=== PATIENT | male | born 1970 | race African-American/Black ===

== ENCOUNTER 2019-11-22 13:04 | Emergency (ER) | payer MEDICARE, MEDICAID, SELFPAY ==
[2019-11-22 13:25] VITALS: BP 93/58; PULSE 62; RESP 16; TEMP 36.3; BMI 35.7
--- NOTE | 2019-11-22 14:30 | CT_ITS ---
EXAMINATION: CT HEAD W/O IV CONTRAST CT CERVICAL SPINE W/O IV CONTRAST CLINICAL INFORMATION: History of fall. COMPARISON: None TECHNIQUE: Head - Contiguous axial imaging of the head was performed from the skull base to the vertex without the administration of intravenous contrast, and axial images are reconstructed at 2 mm and 5 mm slice thickness. Cervical spine - A volumetric, helical CT acquisition of the cervical spine was obtained without contrast; in addition to the standard set of axial images, multiplanar reformatted images were provided in the coronal and sagittal imaging planes. This CT examination was performed using dose optimization techniques as appropriate, variously including the following: *Automated exposure control *Adjustment of mA and/or kV according to patient size (this includes techniques or standardized protocols for targeted exams where dose is matched to indication/reason for exam; i.e. extremities or head) *Use of iterative reconstruction technique DLP: 1494 mGy-cm (total) FINDINGS: HEAD: The tip of a left frontal approach ventriculostomy catheter is located in the midline, near region between frontal horns of lateral ventricles. No hydrocephalus. Mild atrophy of cerebral hemispheres is associated with commensurate prominence of ventricles and sulci. There appears to be chronic gliosis/encephalomalacia from remote infarction in the right middle cerebral artery territory. This is associated with ex vacuo dilatation of the right lateral ventricle. Also, there is gliosis in the left frontal lobe along the tract of the ventriculostomy catheter. No acute findings. No intracranial hemorrhage, extra-axial fluid collection, focal mass effect or midline shift. The cerebellum and brainstem are unremarkable. The mastoid air cells and middle ear cavities are well aerated. Mucosal thickening of frontal, ethmoid, sphenoid and maxillary sinuses without air-fluid levels. Mucus retention cyst along the roof of the left maxillary sinus. The orbits and globes are unremarkable. The temporomandibular joints are intact. No scalp hematoma. CERVICAL SPINE: No acute abnormalities. The craniocervical junction is normal. The occipital condyles, dens and atlantodental articulation are intact. The vertebral body heights and alignment are maintained. No fractures in the anterior or posterior elements. No prevertebral soft tissue swelling. The disc spaces are well-preserved. The facet joints are unremarkable. No evidence of spinal canal or neural foraminal stenosis. 0.7 cm hypodense nodule is present in the left thyroid lobe. Lung apices are excluded from the [id number]-ci-jski. No fluid collection or hematoma along the visualized course of the ventriculostomy catheter. IMPRESSION: * No hemorrhage or other acute intracranial pathology. 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 Associated ex vacuo dilatation of the right lateral ventricle. * No evidence of complications involving the visualized portion of the ventriculoperitoneal shunt. * No fracture or malalignment in the cervical spine.
--- NOTE | 2019-11-22 15:20 | ED.FALL ---
HPI - Fall General Chief Complaint: Fall Stated Complaint: fall Mode of arrival: EMS Limitations: physical limitation ( Left-sided weakness due to stroke in the past) History of Present Illness HPI Narrative: Patient states his feet got tangled up on wheel chair and caused fall. . Patient denies any loss of consciousness. Patient presently denies any pain. Patient states he was sent from the correction due to him being on blood thinners to make sure there is no bleeding in the brain. as per EMS note patient was sitting on which air and his foot got tangled and he fell forward off the wheelchair hit his head. Fall was witnessed by nursing staff. Patient denies loss of conscisouness. patient denies headache, abdominal pain, chest pain, abdominal pain, or dizziness before falling. MD complaint: fall Related Data Allergies Allergy/AdvReac Type Severity Reaction Status Date / Time No Known Allergies Allergy Verified 11/22/19 14:30 Review of Systems Review of Systems: Patient denies any physical complaints Yes all other systems are reviewed and are negative Constitutional: Constitutional: Reports no additional constitutional complaints Eyes: Eyes: Reports no additional eye complaints ENT: Reports system reviewed and no additional complaints, except as documented Cardiovascular: Cardiovascular: Reports as per HPI, Reports no additional cardiovascular complaints, Denies Abdominal Cramping after Meds, Denies Abdominal Distension, Denies chest pain, Denies chest pain at rest, Denies chest pain with activity and Denies Epigastric Pain Respiratory: Respiratory: Reports no additional respiratory complaints Gastrointestinal: Gastrointestinal: Reports no additional gastrointestinal complaints Musculoskeletal: Musculoskeletal: Reports no additional musculoskeletal complaints Neurologic: Reports system reviewed and no additional complaints, except as documented Psychiatric: Psychiatric: Reports no additional psychiatric complaints [facility] Social History Social History Advance Directives: No Advance Directives Information Provided: Yes Physical Exam Vital Signs: Vital Signs: Vital Signs Temp Pulse Resp BP Pulse Ox 11/22/19 17:10 97.8 F 62 17 137/77 96 11/22/19 13:25 97.4 F 62 16 93/58 L Body Mass Index 35.7 Const: Other: patient has residual left-sided weakness from stroke. General: cooperative, healthy appearing, comfortable and no acute distress Orientation/consciousness: patient oriented x3 HENMT: Head: Yes normal to inspection and No No palpable skull fracture present Eyes: General: appearance normal, both eyes and all related structures Neck: Neck: Yes normal visual inspection, Yes full ROM, Yes no meningeal signs, No lymphadenopathy, No positive Brudzinski's sign, No positive Kernig's sign and No tender Chest: Chest palpation & inspection: normal inspection of the chest, normal palpation of entire chest wall, no crepitus, no masses and no tenderness Resp: Effort & Inspection: normal respiratory effort, no audible wheezes, no cough and no use of accessory muscles Auscultation: clear to auscultation bilaterally Cardio: Jugular venous distension: no JVD Heart sounds: S1 normal heart sound present and S2 normal heart sound present GI: Inspection: Yes normal to inspection, No abdominal wall ecchymosis, No Abdominal wall edema, No distended, No incision, No Abdominal panniculus present, No obesity and No scaphoid Palpation (GI): not firm, nontender, no guarding and not rigid : General: No CVA tenderness and Yes no CVA tenderness Back/Spine/Pelvis: Back: no CVA tenderness, No CVA tenderness, No erythema and No back tenderness Skin: Other: Negative For any ecchymosis, abrasions, hematomas, or lacerations. General skin exam: no rashes or lesions noted, no ecchymosis and no scars Neuro: Other: positive for residual left-sided weakness due to stroke that occurred many years ago General: patient oriented x3 and no meningeal signs Extrem: Other: negative for any ecchymosis or other signs of trauma. Positive for residue left-sided weakness due to stroke that occurred years ago. General: Yes normal to inspection Psych: Appearance: grossly normal and well kempt Mental Status: mental status grossly normal Course Course Course Narrative: patient denies pain to any part of his body. Negative for any external or internal rotation of lower extremities to indicate pelvis/hip fracture. Negative for any abdominal tenderness or ecchymosis to indicate abdominal bleed. Negative for any chest wall tenderness, ecchymosis, or abrasions to indicate rib fracture, pneumothorax, or hemothorax. Lungs sounds are clear. Due to patient being on blood thinners will be sent for head CT C-spine to rule out bleed Reevaluation(s) Reevaluation #1: patient presently not any distress Time: 15:30 Reevaluation #2: patient imaging negative for any brain bleed or neck fracture. Patient blood pressure improved. Patient is safe for discharge. Time: 17:14 MDM - Fall MDM Narrative Medical decision making narrative: no indication for labs. This was a witnessed fall by nursing staff. Imaging negative for any brain bleed or neck fracture. Discharge Plan Discharge Clinical Impression: Fall Qualifiers: Encounter type: initial encounter Qualified Code(s): W19.XXXA - Unspecified fall, initial encounter Patient Disposition: Elopement Instructions: Fall Prevention for Older Adults (ED) Additional Instructions: return to the ED immediately for any headache, dizziness, abdominal pain, nausea, vomiting, rectal bleeding, blood in urine, coughing up blood, neck pain, or any other concerning symptoms. Referrals: Prince Bo DO [Primary Care Provider] - 2 days ( Fall. Head & CT C-spine negative for any emergencies.) Print Language: Cam[place]onian
--- NOTE | 2019-11-22 16:12 | PC.NURSE ---
taken for ct
[2019-11-22 17:10] VITALS: BP 137/77; PULSE 62; RESP 17; TEMP 36.6; O2SAT 96
== END 2019-11-22 21:35 | disposition left against medical advice (07) ==
PROVIDERS: Emergency Provider Emergency Medicine; PCP Hospitalist
DX: Z71.1 Person with feared health complaint in whom no diagnosis is made (principal); Z91.81 History of falling; Z79.01 Long term (current) use of anticoagulants
CPT/HCPCS: 70450; 72125; 99284

== ENCOUNTER 2019-11-27 08:21 | Outpatient (REF) | payer MEDICARE, MEDICAID, SELFPAY ==
--- NOTE | 2019-11-27 08:00 | EEG_ITS ---
The waking background activity consists of a posterior 6 Hz theta with asymmetrical delta slowing over the right hemisphere. Photic stimulation is without activation. The background slowing is accentuated by drowsiness. Photic stimulation is without activation. No paroxysmal discharges seen. IMPRESSION: This is an abnormal EEG due to diffuse background slowing consistent with a diffuse encephalopathic process as well as asymmetrical slowing over the right hemisphere that may suggest an underlying structural abnormality. Clinical correlation suggested. MD JT Peterson/FAUSTINO / [id number]
== END 2019-11-27 08:22 | disposition home or self-care (01) ==
LOC: HO.NEURO 08:21
PROVIDERS: Visit Provider Psychiatry & Neurology Neurology
DX: G40.909 Epilepsy, unspecified, not intractable, without status epilepticus (principal)
CPT/HCPCS: 95816

== ENCOUNTER 2020-01-16 10:12 | Emergency (ER) | payer MEDICARE, MEDICAID, SELFPAY ==
[2020-01-16 10:16] VITALS: BP 123/47; BP 127/87; PULSE 55; PULSE 58; RESP 12; TEMP 36.8; O2SAT 98; O2SAT 99; BMI 29.0
--- NOTE | 2020-01-16 11:24 | ED.GENADULT ---
HPI - General Adult General Chief complaint: General Medical Stated complaint: LETHARGY AND FATIGUE PER SNF,NO COVID SX PER EMS Time Seen by Provider: 01/16/20 11:20 History of Present Illness HPI narrative: patient is a residential resident who was noted today to be less active than normal, he is normally verbal and eating and responds quickly to social interaction today he was very slow to interact did not eat his food and told residential staff that he felt fatigued and sleepy Interaction with the patient he says that he feels sleepy and I had to ask him twice but then he responded appropriately, he denies any pain he denies dizziness he denies headache he denies nausea vomiting fever diarrhea shortness of breath, no chest pain denies any falls or injuries Related Data Previous Rx's Medication Instructions Recorded doxycycline hyclate 100 mg PO BID 7 Days #14 cap 01/16/20 Allergies Allergy/AdvReac Type Severity Reaction Status Date / Time No Known Allergies Allergy Verified 11/22/19 14:30 Review of Systems Review of Systems: positive for feeling sleepy and tired Negative for injury negative for headache negative for vision changes negative for fever chills dizziness shortness of breath chest pain sweating abdomen pain nausea vomiting diarrhea, denies any urinary changes, no pain with urination denies any new skin rash, no cough no sore throat no runny nose PMFSH Past Medical History PMFSH Narrative: medical history is past history of intracerebral hemorrhage, hydrocephalus, diabetes type 2, he has a CSF drain, history of TIA and stroke with left-sided residual weakness, history of seizures, 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, hypertension Discussion with staff at the residential says he is verbal but not ambulatory he does not walk in the residential but is usually conversational and alert Medical History (Updated 01/16/20 @ 16:27 by CEE Davenport) Epilepsy Hemiparesis HTN (hypertension) Social History Social History Advance Directives: No Advance Directives Information Provided: No Physical Exam Vital Signs: Vital Signs: Last Vital Signs Temp 97.5 F 01/16/20 13:31 Pulse 85 01/16/20 13:31 Resp 16 01/16/20 13:31 BP 119/76 01/16/20 13:31 Pulse Ox 99 01/16/20 13:31 Body Mass Index 29.0 , patient is resting comfortably in bed with his eyes closed, he responds appropriately to verbal stimuli and answers questions He is normocephalic atraumatic, pupils equal round reactive to light and extraocular motions are intact The neck is supple and nontender with full range of motion no meningismus The pharynx is clear The chest is clear to auscultation with full equal symmetrical breath sounds Heart no murmur auscultated The abdomen is soft nontender Extremities there is no edema, there is no calf tenderness or swelling Neuro there is residual left sided weakness which patient says is his baseline since the stroke, cranial nerves intact as examined, he is interacting appropriately with good comprehension and his voice is normal skin no rash or wound Course Course Course Narrative: I called the residential for information about the patient's baseline and spoke to his nurse who said the baseline is some degree of confusion but normally cheerful interactive, eating and drinking normally and this morning the patient said he was very sleepy and seemed lethargic and did want to eat so they called for an ambulance for a medical evaluation The patient does take Coumadin carbamazepine and Keppra for his seizures so these levels were checked when I returned to the room after the patient had a nap he was normally responsive and interactive and not sleepy or lethargic and he was eating his food He denies any complaint at this time Labs EKG chest x-ray were reviewed as well as a head CT No acute findings except for x-ray which showed possible right-sided infiltrate Further discussion with the patient he said he has had a minor cough for 2 days which has not really bothered him but he did have a cough so he is treated with antibiotic for possible early pneumonia Medical Decision Making Lab Data Lab results reviewed: Yes I reviewed the patient's lab results. Result diagrams: 01/16/20 13:43 01/16/20 13:42 Labs: Lab Results 01/16/20 01/16/20 01/16/20 Range/Units 12:33 12:36 13:42 WBC (4.8-10.8) X10*3/uL RBC (4.60-5.80) X10*6/uL Hgb (14.0-18.0) g/dl Hct (42-52) % MCV (80-98) fL MCH (27.0-33.0) pg MCHC (31.0-36.0) g/dl RDW (11.0-16.0) % Plt Count (160-400) X10*3/uL MPV (9.4-12.4) fL Immature Gran % (Auto) (0.0-0.4) % Neut % (Auto) (45-73) % Lymph % (Auto) (20-40) % [place] % (Auto) (2-11) % Eos % (Auto) (0-4) % Baso % (Auto) (0-2) % Lymph # (Auto) (1.2-4.9) X10*3/uL [place] # (Auto) (0.1-1.2) X10*3/uL Eos # (Auto) (0.0-0.4) X10*3/uL Baso # (Auto) (0.0-0.2) X10*3/uL Abs Immat Gran (auto) (0.00-0.03) X10*3/uL Absolute Neuts (auto) (2.0-8.3) X10*3/uL Absolute Nucleated RBC (0.0-0.012) X10*3/uL Nucleated RBC % (auto) (0.0-0.2) /100WBC PT (10.8-13.0) SEC INR (0.9-1.1) Sodium 137 (135-145) mmol/L Potassium 4.8 (3.3-5.1) mmol/l Chloride 100 (96-108) mmol/L Carbon Dioxide 28 (22-29) mmol/L Anion Gap 14 (12-20) BUN 24 H (9-16) mg/dL Creatinine 1.00 (0.5-1.4) mg/dL Estim Creat Clear Calc 90.5 Estimated GFR > 60 POC Glucose 113 (60-115) mg/dL Random Glucose 98 (60-115) mg/dL Lactic Acid (0.5-2.0) mmol/L Calcium 9.1 (8.4-10.2) mg/dL Total Bilirubin 0.5 (0.0-1.0) mg/dL Direct Bilirubin < 0.2 (0.0-0.5) mg/dL AST 8 (5-37) U/L ALT 15 (0-40) U/L Alkaline Phosphatase 79 (39-117) U/L Troponin I High Sens (<3.5-35.0) ng/L Total Protein 8.0 (6.5-8.0) g/dL Albumin 4.3 (3.5-5.0) g/dL Urine Color Urine Appearance Urine pH (5.0-8.0) Ur Specific Distant (1.005-1.025) Urine Protein (NEG-TRACE) MG/DL Urine Glucose (UA) (NEG) MG/DL Urine Ketones (NEG) MG/DL Urine Blood (NEG) Urine Nitrite (NEG) Ur Leukocyte Esterase (NEG) Carbamazepine (5.0-12.0) mcg/mL Respiratory Panel Pulido See Note Adenovirus (Rapid PCR) Not Detected (Not Detect.) B.pert (TEM-PCR) Not Detected (Not Detect.) B.parapertussis DNA PCR Not Detected (Not Detect.) C. pneumoniae DNA (PCR) Not Detected (Not Detect.) Coronavirus OC43 (PCR) Not Detected (Not Detect.) Coronavirus HKU1 (PCR) Not Detected (Not Detect.) Coronavirus 229E (PCR) Not Detected (Not Detect.) Coronavirus NL63 (PCR) Not Detected (Not Detect.) Human Metapneumovir PCR Not Detected (Not Detect.) Influenza A (RT-PCR) Not Detected (Not Detect.) Influenza B (RT-PCR) Not Detected (Not Detect.) M. pneumoniae (PCR) Not Detected (Not Detect.) Parainfluenza 1 (PCR) Not Detected (Not Detect.) Parainfluenza 2 (PCR) Not Detected (Not Detect.) Parainfluenza 3 (PCR) Not Detected (Not Detect.) Parainfluenza 4 (PCR) Not Detected (Not Detect.) RSV (PCR) Not Detected (Not Detect.) Entero/Rhino (PCR) Not Detected (Not Detect.) SARS-CoV-2 RNA (RT-PCR) Not Detected (Not Detect.) 01/16/20 01/16/20 01/16/20 Range/Units 13:42 13:42 13:42 WBC (4.8-10.8) X10*3/uL RBC (4.60-5.80) X10*6/uL Hgb (14.0-18.0) g/dl Hct (42-52) % MCV (80-98) fL MCH (27.0-33.0) pg MCHC (31.0-36.0) g/dl RDW (11.0-16.0) % Plt Count (160-400) X10*3/uL MPV (9.4-12.4) fL Immature Gran % (Auto) (0.0-0.4) % Neut % (Auto) (45-73) % Lymph % (Auto) (20-40) % [place] % (Auto) (2-11) % Eos % (Auto) (0-4) % Baso % (Auto) (0-2) % Lymph # (Auto) (1.2-4.9) X10*3/uL [place] # (Auto) (0.1-1.2) X10*3/uL Eos # (Auto) (0.0-0.4) X10*3/uL Baso # (Auto) (0.0-0.2) X10*3/uL Abs Immat Gran (auto) (0.00-0.03) X10*3/uL Absolute Neuts (auto) (2.0-8.3) X10*3/uL Absolute Nucleated RBC (0.0-0.012) X10*3/uL Nucleated RBC % (auto) (0.0-0.2) /100WBC PT 21.9 H (10.8-13.0) SEC INR 1.8 H (0.9-1.1) Sodium (135-145) mmol/L Potassium (3.3-5.1) mmol/l Chloride (96-108) mmol/L Carbon Dioxide (22-29) mmol/L Anion Gap (12-20) BUN (9-16) mg/dL Creatinine (0.5-1.4) mg/dL Estim Creat Clear Calc Estimated GFR POC Glucose (60-115) mg/dL Random Glucose (60-115) mg/dL Lactic Acid 1.4 (0.5-2.0) mmol/L Calcium (8.4-10.2) mg/dL Total Bilirubin (0.0-1.0) mg/dL Direct Bilirubin (0.0-0.5) mg/dL AST (5-37) U/L ALT (0-40) U/L Alkaline Phosphatase (39-117) U/L Troponin I High Sens 3.6 (<3.5-35.0) ng/L Total Protein (6.5-8.0) g/dL Albumin (3.5-5.0) g/dL Urine Color Urine Appearance Urine pH (5.0-8.0) Ur Specific Distant (1.005-1.025) Urine Protein (NEG-TRACE) MG/DL Urine Glucose (UA) (NEG) MG/DL Urine Ketones (NEG) MG/DL Urine Blood (NEG) Urine Nitrite (NEG) Ur Leukocyte Esterase (NEG) Carbamazepine (5.0-12.0) mcg/mL Respiratory Panel Pulido Adenovirus (Rapid PCR) (Not Detect.) B.pert (TEM-PCR) (Not Detect.) B.parapertussis DNA PCR (Not Detect.) C. pneumoniae DNA (PCR) (Not Detect.) Coronavirus OC43 (PCR) (Not Detect.) Coronavirus HKU1 (PCR) (Not Detect.) Coronavirus 229E (PCR) (Not Detect.) Coronavirus NL63 (PCR) (Not Detect.) Human Metapneumovir PCR (Not Detect.) Influenza A (RT-PCR) (Not Detect.) Influenza B (RT-PCR) (Not Detect.) M. pneumoniae (PCR) (Not Detect.) Parainfluenza 1 (PCR) (Not Detect.) Parainfluenza 2 (PCR) (Not Detect.) Parainfluenza 3 (PCR) (Not Detect.) Parainfluenza 4 (PCR) (Not Detect.) RSV (PCR) (Not Detect.) Entero/Rhino (PCR) (Not Detect.) SARS-CoV-2 RNA (RT-PCR) (Not Detect.) 01/16/20 01/16/20 01/16/20 Range/Units 13:42 13:43 14:33 WBC 8.9 (4.8-10.8) X10*3/uL RBC 4.84 (4.60-5.80) X10*6/uL Hgb 14.6 (14.0-18.0) g/dl Hct 44.0 (42-52) % MCV 90.9 (80-98) fL MCH 30.2 (27.0-33.0) pg MCHC 33.2 (31.0-36.0) g/dl RDW 13.4 (11.0-16.0) % Plt Count 249 (160-400) X10*3/uL MPV 10.4 (9.4-12.4) fL Immature Gran % (Auto) 0.2 (0.0-0.4) % Neut % (Auto) 75.3 H (45-73) % Lymph % (Auto) 17.8 L (20-40) % [place] % (Auto) 4.6 (2-11) % Eos % (Auto) 1.5 (0-4) % Baso % (Auto) 0.6 (0-2) % Lymph # (Auto) 1.6 (1.2-4.9) X10*3/uL [place] # (Auto) 0.4 (0.1-1.2) X10*3/uL Eos # (Auto) 0.1 (0.0-0.4) X10*3/uL Baso # (Auto) 0.1 (0.0-0.2) X10*3/uL Abs Immat Gran (auto) 0.02 (0.00-0.03) X10*3/uL Absolute Neuts (auto) 6.7 (2.0-8.3) X10*3/uL Absolute Nucleated RBC 0.000 (0.0-0.012) X10*3/uL Nucleated RBC % (auto) 0.0 (0.0-0.2) /100WBC PT (10.8-13.0) SEC INR (0.9-1.1) Sodium (135-145) mmol/L Potassium (3.3-5.1) mmol/l Chloride (96-108) mmol/L Carbon Dioxide (22-29) mmol/L Anion Gap (12-20) BUN (9-16) mg/dL Creatinine (0.5-1.4) mg/dL Estim Creat Clear Calc Estimated GFR POC Glucose (60-115) mg/dL Random Glucose (60-115) mg/dL Lactic Acid (0.5-2.0) mmol/L Calcium (8.4-10.2) mg/dL Total Bilirubin (0.0-1.0) mg/dL Direct Bilirubin (0.0-0.5) mg/dL AST (5-37) U/L ALT (0-40) U/L Alkaline Phosphatase (39-117) U/L Troponin I High Sens (<3.5-35.0) ng/L Total Protein (6.5-8.0) g/dL Albumin (3.5-5.0) g/dL Urine Color YELLOW Urine Appearance CLEAR Urine pH 6.0 (5.0-8.0) Ur Specific Distant 1.020 (1.005-1.025) Urine Protein NEG (NEG-TRACE) MG/DL Urine Glucose (UA) NEG (NEG) MG/DL Urine Ketones NEG (NEG) MG/DL Urine Blood NEG (NEG) Urine Nitrite NEG (NEG) Ur Leukocyte Esterase NEG (NEG) Carbamazepine 4.4 L (5.0-12.0) mcg/mL Respiratory Panel Pulido Adenovirus (Rapid PCR) (Not Detect.) B.pert (TEM-PCR) (Not Detect.) B.parapertussis DNA PCR (Not Detect.) C. pneumoniae DNA (PCR) (Not Detect.) Coronavirus OC43 (PCR) (Not Detect.) Coronavirus HKU1 (PCR) (Not Detect.) Coronavirus 229E (PCR) (Not Detect.) Coronavirus NL63 (PCR) (Not Detect.) Human Metapneumovir PCR (Not Detect.) Influenza A (RT-PCR) (Not Detect.) Influenza B (RT-PCR) (Not Detect.) M. pneumoniae (PCR) (Not Detect.) Parainfluenza 1 (PCR) (Not Detect.) Parainfluenza 2 (PCR) (Not Detect.) Parainfluenza 3 (PCR) (Not Detect.) Parainfluenza 4 (PCR) (Not Detect.) RSV (PCR) (Not Detect.) Entero/Rhino (PCR) (Not Detect.) SARS-CoV-2 RNA (RT-PCR) (Not Detect.) Imaging Data Chest x-ray: Radiologist's impression: radiologist impression was possible early right sided infiltrate on one view chest x-ray CT scan - head: Radiologist's impression: [address] [address] [address] Scan Report Signed Patient: Flavio Caicedo#: [id number] : 1970Acct:[id number] Age/Sex: 49 / MADM Date: 01/16/20 Loc: HO.ED Attending Dr: Ordering Physician: LAILA CROSS Date of Service: 01/16/20 Procedure(s): CT head/brain wo con Accession Number(s): [id number] cc: LAILA CROSS~ EXAMINATION: CT HEAD WITHOUT CONTRAST CLINICAL INFORMATION: Altered mental status. COMPARISON: CT of the head done on 11/22/2019. TECHNIQUE: Contiguous axial imaging was performed from the skull base to vertex without intravenous administration of contrast. This CT examination was performed using dose optimization techniques as appropriate, variously including the following: *Automated exposure control *Adjustment of mA and/or kV according to patient size (this includes techniques or standardized protocols for targeted exams where dose is matched to indication/reason for exam; i.e. extremities or head) *Use of iterative reconstruction technique DLP: 753.54 mGy-cm FINDINGS: There is no evidence of acute intracranial hemorrhage or territorial infarction. No abnormal mass effect or midline shift is seen. Lopez to white matter differentiation is well preserved. No extra-axial fluid collections are identified. The degree of ventricular dilatation appears stable (right greater than left). Evidence of encephalomalacia is noted involving the right temporoparietal lobe with the bifrontal subcortical periventricular hypodensities, similar to prior study dated 11/22/2019. Note is also made of presence of a left-sided ventriculoperitoneal shunt tube, appear similar to prior study. The osseous structures and soft tissues are normal. The mastoid air cells and visualized portions of the paranasal sinuses are well aerated. CT/CT head/brain wo con IMPRESSION: No acute intracranial pathology. No significant change since prior study dated 11/22/2019. ECG Data Interpretation: EKG was normal sinus rhythm with a rate of 63 GA was normal 176 QRS duration was 92 normal, no acute ST changes no acute ischemia on EKG Discharge Plan Discharge Clinical Impression: Bronchitis Patient Disposition: Home, Self-Care Additional Instructions: your workup today had an x-ray which showed a possible early pneumonia, so we are treating with doxycycline antibiotic your oxygen level blood pressure and other vital signs were normal throughout visit and you remained comfortable, and communicating normally and alert throughout visit Your COVID test and other workup was negative You will be discharged and if any symptoms worsen, or any worse condition or concerns return to the ER Prescriptions: New doxycycline hyclate 100 mg capsule 100 mg PO BID 7 Days Qty: 14 RF: 0
--- NOTE | 2020-01-16 11:36 | XR_ITS ---
EXAMINATION: XR CHEST CLINICAL INFORMATION: Possible infection. COMPARISON: None TECHNIQUE: Frontal view of the chest was obtained. FINDINGS: Subtle focal airspace disease is noted at right lower lung base, may represent early infiltrate. The remainder of the lung licea are clear. The left-sided ventriculoperitoneal shunt tube catheter is partially visualized with the visualized part appear intact. The cardiac mediastinal silhouette is within normal limits. XR/XR chest 1V IMPRESSION: Subtle focal airspace disease is noted at right lung base, may represent early infiltrate.
--- NOTE | 2020-01-16 11:36 | CT_ITS ---
EXAMINATION: CT HEAD WITHOUT CONTRAST CLINICAL INFORMATION: Altered mental status. COMPARISON: CT of the head done on 11/22/2019. TECHNIQUE: Contiguous axial imaging was performed from the skull base to vertex without intravenous administration of contrast. This CT examination was performed using dose optimization techniques as appropriate, variously including the following: *Automated exposure control *Adjustment of mA and/or kV according to patient size (this includes techniques or standardized protocols for targeted exams where dose is matched to indication/reason for exam; i.e. extremities or head) *Use of iterative reconstruction technique DLP: 753.54 mGy-cm FINDINGS: There is no evidence of acute intracranial hemorrhage or territorial infarction. No abnormal mass effect or midline shift is seen. Lopez to white matter differentiation is well preserved. No extra-axial fluid collections are identified. The degree of ventricular dilatation appears stable (right greater than left). Evidence of encephalomalacia is noted involving the right temporoparietal lobe with the bifrontal subcortical periventricular hypodensities, similar to prior study dated 11/22/2019. Note is also made of presence of a left-sided ventriculoperitoneal shunt tube, appear similar to prior study. The osseous structures and soft tissues are normal. The mastoid air cells and visualized portions of the paranasal sinuses are well aerated. CT/CT head/brain wo con IMPRESSION: No acute intracranial pathology. No significant change since prior study dated 11/22/2019.
--- NOTE | 2020-01-16 11:36 | ECG_ITS ---
Test Reason : SOB Blood Pressure : / mmHG Vent. Rate : 063 BPM Atrial Rate : 063 BPM P-R Int : 176 ms QRS Dur : 092 ms QT Int : 434 ms P-R-T Axes : 017 040 046 degrees QTc Int : 444 ms Normal sinus rhythm Normal ECG No previous ECGs available Referred By: Flavio Babcock Electronically Signed By:CELESTE MCADAMS MD
[2020-01-16 12:00] VITALS: BP 129/85; PULSE 59; RESP 14; TEMP 36.4; O2SAT 98
[2020-01-16 12:37] LABS: Glucose, Whole Blood 113 mg/dL (60-115)
[2020-01-16 13:13] LABS: Adenovirus PCR Not Detected (Not Detect.); Bordetella parapertussis PCR Not Detected (Not Detect.); Bordetella pertussis PCR Not Detected (Not Detect.); Chlamydia pneumoniae PCR Not Detected (Not Detect.); Coronavirus 229E PCR Not Detected (Not Detect.); Coronavirus HKU1 PCR Not Detected (Not Detect.); Coronavirus NL63 PCR Not Detected (Not Detect.); Coronavirus OC43 PCR Not Detected (Not Detect.); Human metapneumovirus PCR Not Detected (Not Detect.); Influenza A PCR Not Detected (Not Detect.); Influenza B PCR Not Detected (Not Detect.); Mycoplasma pneumoniae PCR Not Detected (Not Detect.); Parainfluenza 1 PCR Not Detected (Not Detect.); Parainfluenza 2 PCR Not Detected (Not Detect.); Parainfluenza 3 PCR Not Detected (Not Detect.); Parainfluenza 4 PCR Not Detected (Not Detect.); RSV PCR Not Detected (Not Detect.); Rhino/Enterovirus PCR Not Detected (Not Detect.); SARS-CoV-2 PCR Not Detected (Not Detect.)
[2020-01-16 13:31] VITALS: BP 119/76; PULSE 85; RESP 16; TEMP 36.4; O2SAT 99
[2020-01-16 13:49] LABS: MANUAL DIFF FLAG NO
[2020-01-16 13:51] LABS: Basophils Absolute Auto 0.1 X10*3/uL (0.0-0.2); Basophils Percent Auto 0.6 % (0-2); Eosinophils Absolute Auto 0.1 X10*3/uL (0.0-0.4); Eosinophils Percent Auto 1.5 % (0-4); Hemoglobin 14.6 g/dl (14.0-18.0); Imm Gran Abs Auto 0.02 X10*3/uL (0.00-0.03); Imm Gran Pct Auto 0.2 % (0.0-0.4); Lymphocytes Absolute Auto 1.6 X10*3/uL (1.2-4.9); Lymphocytes Percent Auto 17.8 % (20-40); Mean Corpuscular HGB Conc 33.2 g/dl (31.0-36.0); Mean Corpuscular Hemoglobin 30.2 pg (27.0-33.0); Mean Corpuscular Volume 90.9 fL (80-98); Mean Platelet Volume 10.4 fL (9.4-12.4); Monocytes Absolute Auto 0.4 X10*3/uL (0.1-1.2); Monocytes Percent Auto 4.6 % (2-11); Neutrophils Absolute Auto 6.7 X10*3/uL (2.0-8.3); Neutrophils Percent Auto 75.3 % (45-73); Platelet Count 249 X10*3/uL (160-400); Red Blood Count 4.84 X10*6/uL (4.60-5.80); Red Cell Distribution Width 13.4 % (11.0-16.0); White Blood Count 8.9 X10*3/uL (4.8-10.8)
[2020-01-16 13:59] LABS: INTERNATIONAL NORM RATIO 1.8 (0.9-1.1); Prothrombin Time 21.9 SEC (10.8-13.0)
[2020-01-16 14:07] LABS: Lactic Acid 1.4 mmol/L (0.5-2.0)
[2020-01-16 14:12] LABS: Alanine Aminotransferase 15 U/L (0-40); Albumin Level 4.3 g/dL (3.5-5.0); Alkaline Phosphatase 79 U/L (39-117); Anion Gap 14 (12-20); Aspartate Amino Transferase 8 U/L (5-37); Bilirubin Direct < 0.2 mg/dL (0.0-0.5); Bilirubin Total 0.5 mg/dL (0.0-1.0); Blood Urea Nitrogen 24 mg/dL (9-16); Calcium 9.1 mg/dL (8.4-10.2); Carbon Dioxide 28 mmol/L (22-29); Chloride 100 mmol/L (96-108); Creatinine Clr Calc Pharmacy 90.5; Estimated Glomerular Filt Rate > 60; Glucose Random 98 mg/dL (60-115); Potassium 4.8 mmol/l (3.3-5.1); Sodium 137 mmol/L (135-145)
[2020-01-16 14:17] LABS: Troponin-I High Sensitivity 3.6 ng/L (<3.5-35.0)
[2020-01-16 14:38] LABS: Glucose Urine UA NEG (NEG); Leukocyte Esterase Urine NEG (NEG); Nitrite Urine NEG (NEG); Urine Blood NEG (NEG); Urine Ketones NEG (NEG); Urine Protein NEG (NEG-TRACE)
[2020-01-16 14:40] LABS: Appearance Urine CLEAR; Color Urine YELLOW
[2020-01-16 15:10] LABS: Carbamazepine Tegretol 4.4 mcg/mL (5.0-12.0)
--- NOTE | 2020-01-16 16:48 | PC.NURSE ---
report given to Todd [facility] at [facility]. aware of patient's discharge.
[2020-01-20 13:27] LABS: Levetiracetam Keppra 24.3 mcg/mL (12.0-46.0)
== END 2020-01-16 18:45 | disposition home or self-care (01) ==
PROVIDERS: Physician Assistant Medical; Emergency Provider Emergency Medicine Emergency Medical Services
DX: J40 Bronchitis, not specified as acute or chronic (principal); Z20.828 Contact with and (suspected) exposure to other viral communicable diseases; R41.82 Altered mental status, unspecified; I10 Essential (primary) hypertension
CPT/HCPCS: 36415; 70450; 71045; 80053; 80076; 80156; 80177; 81003; 82248; 82947; 83605; 84484; 85025; 85610; 87633; 93005; 99284

== ENCOUNTER 2020-05-10 07:49 | Outpatient (REF) | payer MEDICARE, MEDICAID, SELFPAY ==
--- NOTE | 2020-05-10 08:00 | EEG_ITS ---
The waking background activity consists of a diffuse moderate voltage 6 to 7 hertz theta, intermixed with low voltage fast frequencies anteriorly. Photic stimulation is without activation. Hyperventilation was omitted. No paroxysmal discharges seen. IMPRESSION: This EEG is considered abnormal due to diffuse background slowing consistent with a diffuse encephalopathic process. No epileptiform discharges seen. Clinical correlation is suggested. MD JT Peterson/FAUSTINO / [id number]
== END 2020-05-10 07:50 | disposition home or self-care (01) ==
LOC: HO.NEURO 07:49
PROVIDERS: Visit Provider Hospitalist
DX: G40.909 Epilepsy, unspecified, not intractable, without status epilepticus (principal)
CPT/HCPCS: 95816

== ENCOUNTER 2022-09-17 11:25 | Outpatient (REF) | payer MEDICARE, MEDICAID, SELFPAY ==
--- NOTE | ~2022-09-17 | XR_ITS ---
EXAMINATION: XR ABDOMEN COMPLETE CLINICAL INDICATION: Reason for Exam N/V AND CONSTIPATION FOR 1 DAY COMPARISON: Chest radiograph 01/16/2020 TECHNIQUE: AP view of the abdomen. FINDINGS: Lines or devices: IVC filter tip terminates at the level of L2. Partially imaged ventriculoperitoneal shunt catheter overlies the right mid abdomen. Nonobstructive bowel gas pattern. Mild colonic stool burden. Supine technique limits evaluation for extraluminal air although no secondary findings are appreciated. Calcifications overlying the right renal shadow measuring up to 1.1 cm which may reflect renal stones. XR/XR KUB IMPRESSION: 1. Nonobstructive bowel gas pattern. Mild colonic stool burden. 2. Calcifications overlying the right renal shadow measuring up to 1.1 cm which may reflect renal stones.
== END 2022-09-17 11:26 | disposition home or self-care (01) ==
LOC: HO.XRAY 11:25
PROVIDERS: PCP Hospitalist; Visit Provider Hospitalist
DX: Z13.89 Encounter for screening for other disorder (principal)
CPT/HCPCS: 74018

== ENCOUNTER 2022-09-20 09:40 | Inpatient (IN) | payer MEDICARE, MEDICAID, SELFPAY ==
[2022-09-20] VITALS (14 sets, daily range): BP systolic 102–151; BP diastolic 36–86; PULSE 73–91; RESP 14–20; TEMP 36.3–36.8; O2SAT 94–98; BMI 30.8
--- NOTE | ~2022-09-20 | CT_ITS ---
EXAMINATION: CT ABDOMEN AND PELVIS WITHOUT CONTRAST CLINICAL INFORMATION: Right lower quadrant abdominal pain COMPARISON: None available. TECHNIQUE: Multidetector volumetric imaging was performed from the superior aspect of the liver through the pubic symphysis. Sagittal and coronal reformatted images were obtained on the technologist's workstation. This CT examination was performed using dose optimization techniques as appropriate, variously including the following: *Automated exposure control *Adjustment of mA and/or kV according to patient size (this includes techniques or standardized protocols for targeted exams where dose is matched to indication/reason for exam; i.e. extremities or head) *Use of iterative reconstruction technique DLP: 692 mGy-cm FINDINGS: A ventriculoperitoneal shunt catheter extends into the left lower quadrant. There is no fluid collection. LUNG BASES: The visualized lung bases are unremarkable. LIVER, GALLBLADDER, AND BILIARY TREE: The liver is normal in size, shape, and attenuation. No focal hepatic lesion or biliary ductal dilatation is present. The gallbladder is unremarkable with no evidence of radiopaque gallstones, gallbladder wall thickening, or obvious pericholecystic inflammatory changes. PANCREAS: Unremarkable. SPLEEN: Unremarkable. ADRENAL GLANDS: Unremarkable. KIDNEYS AND URETERS: Mild to moderate right hydroureteronephrosis is present to the level of a 4 mm x 2 mm calculus in the right proximal ureter located approximately the L3 level. The distal right ureter is collapsed. Coarse calcifications are evident in the midpole of the right kidney. The largest measures 10 x 4 mm. There is also a punctate calculus in the lower pole of the right kidney. The right kidney has kidney is edematous and enlarged. The left kidney and ureter are unremarkable. BLADDER: There are several small calculi, each measuring 1-2 mm, layering dependently within the urinary bladder. GASTROINTESTINAL TRACT: The small and large bowel are unremarkable. The appendix is unremarkable. ABDOMINAL WALL: A fat-containing left inguinal hernia is present. LYMPH NODES: Normal. VASCULAR: A metallic filter is evident in the infrarenal inferior vena cava. PELVIC VISCERA: The prostate gland is mildly enlarged indenting the bladder base. OSSEOUS STRUCTURES: Unremarkable. CT/CT abdomen pelvis wo IV con IMPRESSION: 1. Mild to moderate right hydroureteronephrosis, with an edematous enlarged right kidney, with the obstruction extending to the level of a 4 x 2 millimeter calculus in the right proximal ureter. 2. Additional calculi within the right kidney, and several small calculi layering within the urinary bladder. Her graft 3. 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 Fleischner guidelines were followed.
--- NOTE | ~2022-09-20 | FL_ITS ---
PROCEDURE: Retrograde Urography INDICATION: Stent placement FLUOROSCOPY: Fluoroscopy Time: 7.1 seconds Dose/air kerma: 1.5 mGy Images saved: 3 TECHNIQUE: Multiple intraoperative fluoroscopic images were submitted during reported right stent placement Evaluation is limited secondary to fluoroscopic technique. FL/FL guidance in OR IMPRESSION: Fluoroscopy was provided by radiology for this procedure. Please refer to the operative report for further information.
[2022-09-20 10:55] LABS: MANUAL DIFF FLAG NO
[2022-09-20 10:59] LABS: Basophils Percent Auto 0.3 % (0-2); Eosinophils Absolute Auto 0.2 X10*3/uL (0.0-0.4); Eosinophils Percent Auto 1.3 % (0-4); Hematocrit 42.7 % (42.0-52.0); Hemoglobin 14.5 g/dl (14.0-18.0); Imm Gran Abs Auto 0.07 X10*3/uL (0.00-0.03); Imm Gran Pct Auto 0.5 % (0.0-0.4); Lymphocytes Absolute Auto 1.1 X10*3/uL (1.2-4.9); Lymphocytes Percent Auto 8.6 % (20-40); Mean Corpuscular Hemoglobin 30.2 pg (27.0-33.0); Mean Platelet Volume 10.4 fL (9.4-12.4); Monocytes Percent Auto 7.5 % (2-11); Neutrophils Absolute Auto 10.6 x10*3/uL (2.0-8.3); Neutrophils Percent Auto 81.8 % (45-73); Platelet Count 353 X10*3/uL (160-400); Red Cell Distribution Width 12.1 % (11.0-16.0)
--- NOTE | 2022-09-20 11:38 | ED.GENADULT ---
HPI - General Adult General Chief complaint: General Medical Stated complaint: R SIDED FLANK PAIN Time Seen by Provider: 09/20/22 11:07 Source: patient Mode of arrival: EMS History of Present Illness HPI narrative: 51-year-old male was brought in by EMS from [facility] facility for constipation for 5 days, right lower quadrant pain but denies any nausea or vomiting and is requiring additional evaluation for abnormal kidney results. Patient does report some difficulty with urination. Related Data Previous Rx's Medication Instructions Recorded doxycycline hyclate 100 mg capsule 100 mg PO BID 7 days #14 caps 01/16/20 Allergies Allergy/AdvReac Type Severity Reaction Status Date / Time No Known Allergies Allergy Verified 11/22/19 14:30 Review of Systems Review of Systems: Pertinent positives and negatives as stated in HPI [facility] Past Medical History Source: nursing notes reviewed Medical History Epilepsy Hemiparesis HTN (hypertension) Social History Social History Alcohol intake: never Smoked in Last 30 Days: No Use of substances other than those prescribed or required for medical reasons: No Advance Directives: No Advance Directives Information Provided: Yes Physical Exam ED Vital Signs: Vital Signs - 24 hr 09/20/22 10:13 09/20/22 14:00 09/20/22 15:01 Temperature 98.3 F 97.8 F 98.3 F Pulse Rate 74 74 74 Respiratory Rate 16 14 18 Blood Pressure 125/36 L 126/73 136/75 Pulse Oximetry 96 97 97 Oxygen Delivery Method Room Air Room Air Room Air 09/20/22 14:44 09/20/22 15:11 Temperature 98.2 F 97.9 F Pulse Rate 80 74 Respiratory Rate 18 16 Blood Pressure 151/86 H 123/63 Pulse Oximetry 97 97 Oxygen Delivery Method Room Air Room Air BMI result Body Mass Index 30.8 VITAL SIGNS: Reviewed. GENERAL: Well developed, well nourished, in no acute distress. HEAD: Normocephalic/atraumatic EYES: PERRLA, EOMI EARS: Ext canals without abnormality NOSE: Nares patent bilateral OROPHARYNX: no oral lesions noted, posterior pharynx clear NECK: Supple, no adenopathy LUNGS: Normal breath sounds. No adventitious sounds or accessory muscle use. SpO2<96> CARDIOVASCULAR: Regular rate and rhythm without noted murmurs ABDOMEN: Soft, patient with right lower quadrant pain, non-distended with bowel sounds. MUSCULOSKELETAL: No tenderness, deformities, or effusions noted on gross inspection. EXTREMITIES: No cyanosis, clubbing or edema. SKIN: Inspection of the skin reveals no rashes NEUROLOGIC: Alert and oriented x 3. Strength and sensation to light touch were grossly intact x 4. Medications Administered Discontinued Medications Generic Name Dose Route Start Last Admin Trade Name Freq PRN Reason Stop Dose Admin Sodium Chloride 1,000 mls @ 999 mls/hr 09/20/22 11:15 09/20/22 13:20 Ns IV 09/20/22 12:15 Infused .Q1H1M [place] Infusion Sodium Chloride 1,000 mls @ 999 mls/hr 09/20/22 11:45 09/20/22 14:30 Ns IV 09/20/22 12:45 Infused .Q1H1M [place] Infusion Ceftriaxone Sodium 1 gm/ 50 mls @ 100 mls/hr 09/20/22 12:09 09/20/22 14:55 Sodium Chloride IV 09/20/22 12:38 Infused ONCE ONE Infusion Levofloxacin 500 mg in 100 mls @ 100 mls/hr 09/20/22 14:17 09/20/22 15:09 Levaquin IV 09/20/22 15:16 100 mls/hr PREOP ONE Administration Ketorolac Tromethamine 15 mg 09/20/22 11:07 09/20/22 12:15 Ketorolac Tromethamine 30 Mg/Ml Vial IVPUSH 09/20/22 11:08 15 mg ONCE ONE Administration Medical Decision Making Medical Decision Making [facility] Narrative: 1139: 51-year-old male with history and clinical presentation, DDX: Renal colic, appendicitis, pyelonephritis, obstructive uropathy, UTI. I reviewed all investigations, hematologic indices demonstrate leukocytosis with left shift but no anemia or thrombocytopenia. Chemistry indices show a significant NAHOMY and evidence to suggest some mild dehydration although the sodium may be reflective of a pseudohyponatremia given mild hyperglycemia with non-anion gap metabolic acidosis. Patient had antibiotics ordered, CT scan demonstrates hydroureteronephrosis with proximal obstruction of 2 stones. Will also receive IV fluids. 1358/1406: I tiger texted Dr. Anderson for suspicion of patient needing immediate intervention given degree of NAHOMY. I then set out a call for him. 1408: Dr. Anderson will be placing the patient on at on for this afternoon and stent placement, reviewed lab work with him. 1444: I discussed case with inpatient hospitalist. Differential Diagnosis Differential Diagnoses: The differential diagnosis associated with the presentation includes Please see the discussion above Admission/Observation Consideration of admission/observation: Escalation of care including admission/observation considered Please see the discussion above Consult Healthcare Provider Management of the patient was discussed with: Hospitalist and Surveillance System Monitor Please see the discussion above Lab Data MDM Lab Attestation statement: I reviewed the patient's lab results. Please see the discussion above 09/20/22 10:48 09/20/22 10:48 Labs: Lab Results 09/20/22 09/20/22 09/20/22 Range/Units 10:48 10:48 13:34 WBC 13.0 H (4.8-10.8) X10*3/uL RBC 4.80 (4.60-5.80) X10*6/uL Hgb 14.5 (14.0-18.0) g/dl Hct 42.7 (42.0-52.0) % MCV 89.0 (80.0-98.0) fL MCH 30.2 (27.0-33.0) pg MCHC 34.0 (31.0-36.0) g/dl RDW 12.1 (11.0-16.0) % Plt Count 353 (160-400) X10*3/uL MPV 10.4 (9.4-12.4) fL Immature Gran % (Auto) 0.5 H (0.0-0.4) % Neut % (Auto) 81.8 H (45-73) % Lymph % (Auto) 8.6 L (20-40) % [place] % (Auto) 7.5 (2-11) % Eos % (Auto) 1.3 (0-4) % Baso % (Auto) 0.3 (0-2) % Lymph # (Auto) 1.1 L (1.2-4.9) X10*3/uL [place] # (Auto) 1.0 (0.1-1.2) X10*3/uL Eos # (Auto) 0.2 (0.0-0.4) X10*3/uL Baso # (Auto) 0.0 (0.0-0.2) X10*3/uL Abs Immat Gran (auto) 0.07 H (0.00-0.03) X10*3/uL Absolute Neuts (auto) 10.6 H (2.0-8.3) x10*3/uL Absolute Nucleated RBC 0.000 (0.0-0.012) X10*3/uL Nucleated RBC % (auto) 0.0 (0.0-0.2) /100WBC Sodium 131 L (135-145) mmol/L Potassium 4.6 (3.3-5.1) mmol/L Chloride 97 (96-108) mmol/L Carbon Dioxide 19 L (22-29) mmol/L Anion Gap 20 (12-20) BUN 61 H (9-16) mg/dL Creatinine 4.00 H* (0.5-1.4) mg/dL Estim Creat Clear Calc 21.2 Estimated GFR 16 Random Glucose 269 H (60-115) mg/dL Lactic Acid 1.4 (0.5-2.0) mmol/L Calcium 9.5 (8.4-10.2) mg/dL Magnesium 2.2 (1.6-2.6) mg/dL Total Bilirubin 0.3 (0.0-1.0) mg/dL AST 7 (5-37) U/L ALT 9 (0-40) U/L Alkaline Phosphatase 63 (39-117) U/L Total Protein 8.6 H (6.5-8.0) g/dL Albumin 4.2 (3.5-5.0) g/dL Urine Color Urine Appearance Urine pH (5.0-9.0) Ur Specific [place] (1.005-1.025) Urine Protein (Neg-Trace) mg/dL Urine Glucose (UA) (Negative) mg/dL Urine Ketones (Negative) mg/dL Urine Blood (Negative) Urine Nitrite (Negative) Ur Leukocyte Esterase (Negative) 09/20/22 Range/Units 15:07 WBC (4.8-10.8) X10*3/uL RBC (4.60-5.80) X10*6/uL Hgb (14.0-18.0) g/dl Hct (42.0-52.0) % MCV (80.0-98.0) fL MCH (27.0-33.0) pg MCHC (31.0-36.0) g/dl RDW (11.0-16.0) % Plt Count (160-400) X10*3/uL MPV (9.4-12.4) fL Immature Gran % (Auto) (0.0-0.4) % Neut % (Auto) (45-73) % Lymph % (Auto) (20-40) % [place] % (Auto) (2-11) % Eos % (Auto) (0-4) % Baso % (Auto) (0-2) % Lymph # (Auto) (1.2-4.9) X10*3/uL [place] # (Auto) (0.1-1.2) X10*3/uL Eos # (Auto) (0.0-0.4) X10*3/uL Baso # (Auto) (0.0-0.2) X10*3/uL Abs Immat Gran (auto) (0.00-0.03) X10*3/uL Absolute Neuts (auto) (2.0-8.3) x10*3/uL Absolute Nucleated RBC (0.0-0.012) X10*3/uL Nucleated RBC % (auto) (0.0-0.2) /100WBC Sodium (135-145) mmol/L Potassium (3.3-5.1) mmol/L Chloride (96-108) mmol/L Carbon Dioxide (22-29) mmol/L Anion Gap (12-20) BUN (9-16) mg/dL Creatinine (0.5-1.4) mg/dL Estim Creat Clear Calc Estimated GFR Random Glucose (60-115) mg/dL Lactic Acid (0.5-2.0) mmol/L Calcium (8.4-10.2) mg/dL Magnesium (1.6-2.6) mg/dL Total Bilirubin (0.0-1.0) mg/dL AST (5-37) U/L ALT (0-40) U/L Alkaline Phosphatase (39-117) U/L Total Protein (6.5-8.0) g/dL Albumin (3.5-5.0) g/dL Urine Color Yellow Urine Appearance Clear Urine pH 5.5 (5.0-9.0) Ur Specific [place] 1.020 (1.005-1.025) Urine Protein 30 (1+) H (Neg-Trace) mg/dL Urine Glucose (UA) >=1000 H (Negative) mg/dL Urine Ketones Negative (Negative) mg/dL Urine Blood Negative (Negative) Urine Nitrite Negative (Negative) Ur Leukocyte Esterase Negative (Negative) Critical Care Time Critical Care Time Critical Care Time: Yes Total Critical Care Time: 30 Attestation: I personally attest to this time spent taking care of the patient. Discharge Plan Discharge Clinical Impression: Ureteric calculus, NAHOMY (acute kidney injury), Hydroureteronephrosis, Pyelonephritis Patient Disposition: Admitted As Inpatient
[2022-09-20 11:53] LABS: Alanine Aminotransferase 9 U/L (0-40); Albumin Level 4.2 g/dL (3.5-5.0); Alkaline Phosphatase 63 U/L (39-117); Anion Gap 20 (12-20); Aspartate Amino Transferase 7 U/L (5-37); Bilirubin Total 0.3 mg/dL (0.0-1.0); Blood Urea Nitrogen 61 mg/dL (9-16); Calcium 9.5 mg/dL (8.4-10.2); Carbon Dioxide 19 mmol/L (22-29); Chloride 97 mmol/L (96-108); Creatinine Clr Calc Pharmacy 21.2; Estimated Glomerular Filt Rate 16; Glucose Random 269 mg/dL (60-115); Magnesium 2.2 mg/dL (1.6-2.6); Potassium 4.6 mmol/L (3.3-5.1); Sodium 131 mmol/L (135-145); Total Protein 8.6 g/dL (6.5-8.0)
[2022-09-20] MEDS: 0.9 % Sodium Chloride 1,000 ML 999 ML IV ×3 (12:15→15:49)
[2022-09-20] MEDS: Ketorolac Tromethamine 30 MG/ML VIAL 15 MG IVPUSH (12:15)
[2022-09-20 13:51] LABS: Lactic Acid 1.4 mmol/L (0.5-2.0)
--- NOTE | 2022-09-20 14:19 | P.CNUR_ITS ---
History of Present Illness Consult details Consult date: 09/20/22 Narrative: CC: Proximal right ureteric stone with NAHOMY and elevated white count possible sepsis 51-year-old male Patient from [facility] with background of epilepsy Persistent discomfort right side Imaging performed in hospital - Mild to moderate right hydroureteronephrosis is present to the level of a 4 mm x 2 mm calculus in the right proximal ureter located approximately the L3 level Laboratory show NAHOMY with creatinine 4.0, calcium 9.5, WBC 13.0, concern for developing urosepsis Plan for cystoscopy, right retrograde, right stent placement Review of Systems Constitutional: Constitutional: Reports as per HPI and Reports no additional constitutional complaints Cardiovascular: Cardiovascular: Reports as per HPI and Reports no additional cardiovascular complaints Respiratory: Respiratory: Reports as per HPI and Reports no additional respiratory complaints Gastrointestinal: Gastrointestinal: Reports as per HPI and Reports no additional gastrointestinal complaints Genitourinary: Genitourinary: Reports as per HPI Musculoskeletal: Musculoskeletal: Reports no additional musculoskeletal complaints and Reports as per HPI Neurologic: Reports system reviewed and no additional complaints, except as documented and Reports as per HPI PMFSH Past Medical History Medical History Epilepsy Hemiparesis HTN (hypertension) Social History Social History Alcohol intake: never Smoked in Last 30 Days: No Use of substances other than those prescribed or required for medical reasons: No Advance Directives: No Advance Directives Information Provided: Yes Meds Allergies Allergy/AdvReac Type Severity Reaction Status Date / Time No Known Allergies Allergy Verified 11/22/19 14:30 Physical Exam Vital Signs: Vital Signs: Last Vital Signs Temp 98.3 F 09/20/22 10:13 Pulse 74 09/20/22 10:13 Resp 16 09/20/22 10:13 BP 125/36 L 09/20/22 10:13 Pulse Ox 96 09/20/22 10:13 O2 Del Method Room Air 09/20/22 10:13 BMI result Body Mass Index 30.8 Const: General: cooperative, healthy appearing, comfortable and no acute distress Orientation/consciousness: patient oriented x3 HEENT: Face and sinus: Yes normal facial exam Mouth: moist mucous membranes Neck: Neck: Yes normal visual inspection, Yes full ROM and Yes trachea midline Chest: Chest palpation & inspection: normal inspection of the chest Resp: Effort & Inspection: normal respiratory effort, able to speak in complete sentences and no respiratory distress GI: Inspection: Yes normal to inspection Back/Spine/Pelvis: Cervical Spine: normal cervical lordosis Thoracic/Lumbar Spine: thoracic and lumbar spine normal to inspection Skin: General skin exam: no rashes or lesions noted Neuro: General: patient oriented x3, tone normal and moves all extremities Extrem: General: Yes normal to inspection and Yes capillary refill normal Results Labs 09/20/22 10:48 09/20/22 10:48 Labs: Abnormal lab results 09/20/22 09/20/22 Range/Units 10:48 10:48 WBC 13.0 H (4.8-10.8) X10*3/uL Immature Gran % (Auto) 0.5 H (0.0-0.4) % Neut % (Auto) 81.8 H (45-73) % Lymph % (Auto) 8.6 L (20-40) % Lymph # (Auto) 1.1 L (1.2-4.9) X10*3/uL Abs Immat Gran (auto) 0.07 H (0.00-0.03) X10*3/uL Absolute Neuts (auto) 10.6 H (2.0-8.3) x10*3/uL Sodium 131 L (135-145) mmol/L Carbon Dioxide 19 L (22-29) mmol/L BUN 61 H (9-16) mg/dL Creatinine 4.00 H* (0.5-1.4) mg/dL Random Glucose 269 H (60-115) mg/dL Total Protein 8.6 H (6.5-8.0) g/dL Short CBC 09/20/22 Range/Units 10:48 WBC 13.0 H (4.8-10.8) X10*3/uL Hgb 14.5 (14.0-18.0) g/dl Hct 42.7 (42.0-52.0) % Plt Count 353 (160-400) X10*3/uL BMP 09/20/22 10:48 Sodium 131 L Potassium 4.6 Chloride 97 Carbon Dioxide 19 L BUN 61 H Creatinine 4.00 H* Calcium 9.5 Liver Function 09/20/22 Range/Units 10:48 Total Bilirubin 0.3 (0.0-1.0) mg/dL AST 7 (5-37) U/L ALT 9 (0-40) U/L Alkaline Phosphatase 63 (39-117) U/L Albumin 4.2 (3.5-5.0) g/dL All other labs normal. Assessment and Plan (1) Ureteric calculus: Status: Acute (2) NAHOMY (acute kidney injury): Status: Acute Plan Risks, benefits and alternatives to therapy were discussed. These include but are not limited to infection, bleeding, damage to local organs and tissues, need for further interventions. Anesthetic risks regarding cardiac arrhythmia, blood clots, and potential mortality were discussed. The patient understands the typical recovery time and the outpatient nature of the procedure. After consideration of these risks the patient gives full informed consent and they wish to move ahead with the procedure. Cystoscopy, right retrograde, right stent placement Time Spent With Patient Time: Total time managing care of this patient today ____ minutes. Procedures Date of Service Date of Service: 09/20/22
[2022-09-20] MEDS: cefTRIAXone sodium 1 GM in 0.9 % Sodium Chloride 50 ML IV (14:20)
--- NOTE | 2022-09-20 14:48 | MHC.EDTECH ---
@2348 Tech went into collect 2nd set of Blood culture. Patient was a slow drip. It was Drip by Drip to fill them to the line.
--- NOTE | 2022-09-20 14:55 | P.HPHOSP_ITS ---
History of Present Illness Date of Service: 09/20/22 Chief Complaint: loin pain A 51 years old male care one resident w [facility] of seizures, HTN who presents to the hospital for loin pain evaluation. The patient reports constipation and right sided loin pain for 5 days [employer]HOU[employer] SH[employer]PING [employer] with associated nausea and one episode of vom iting. Brought to the hospital for evaluation. denies any fever, chills, SOB, chest pain or urinary symptoms. BMP showing NAHOMY as CT Scan showed obstructing stone in right kidney. Admitted for urological cystoscopy and treatment of NAHOMY. Review of Systems Review of Systems: No fever, chills or weakness No chest pain, palpitation No shortness of breath or coughing No abdominal pain, nausea or vomiting Right loin pain No urinary symptoms No any rash or wounds PMFSH Medical History Epilepsy Hemiparesis HTN (hypertension) Social History Household Members: Other Housing: Other Housing Other:: [facility] Alcohol intake: never Patient Tobacco Use Status: Never used Tobacco Smoked in Last 30 Days: No Use of substances other than those prescribed or required for medical reasons: No Currently Displaying Signs/Symptoms of Drug Intoxication Withdrawal: No Have you been hit, kicked, punched, or otherwise hurt by someone within the past year? If so, by whom?: No Do you feel safe in your current relationship?: No Current Relationship Is there a partner from a previous relationship who is making you feel unsafe now?: No Are you made to feel afraid or neglected: No Advance Directives: No Advance Directives Information Provided: Yes Do you have thoughts of harming others: None Do you have a plan to hurt others: No Plan Recently lost weight without trying: No How much weight loss: Not applicable Eating poorly because of decreased appetite: No Nutrition screen score: 0 Nutrition Risks: No Nutritional Risk Meds Allergies Allergy/AdvReac Type Severity Reaction Status Date / Time Penicillins Allergy Unknown Verified 09/20/22 19:37 Active Medications: Current Medications Levofloxacin (Levaquin) 500 mg in 100 mls @ 100 mls/hr IV PREOP ONE Stop: 09/20/22 15:16 Sodium Chloride (Ns) 1,000 mls @ 999 mls/hr IV .Q1H1M [place] Stop: 09/20/22 15:45 Home Medications Medication Instructions Recorded Confirmed Last Taken Type acetaminophen 325 mg tablet 650 mg PO Q8H PRN fever/pain 09/20/22 09/20/22 Unknown History apixaban 5 mg tablet 5 mg PO BID 09/20/22 09/20/22 Unknown History atorvastatin 20 mg tablet 20 mg PO BEDTIME 09/20/22 09/20/22 Unknown History carbamazepine 100 mg 100 mg PO BID 09/20/22 09/20/22 Unknown History capsule,extended release [id number] carbamazepine 400 mg 400 mg PO BID 09/20/22 09/20/22 Unknown History tablet,extended release,12 hr dapagliflozin propanediol 10 mg 10 mg PO DAILY 09/20/22 09/20/22 Unknown History tablet diclofenac sodium 1 % topical gel 4 g topical Q6H pain 09/20/22 09/20/22 Unknown History docusate sodium 100 mg tablet 100 mg PO BID 09/20/22 09/20/22 Unknown History gemfibrozil 600 mg tablet 600 mg PO BID 09/20/22 09/20/22 Unknown History guaifenesin 100 mg/5 mL oral liquid 200 mg PO Q4H PRN Cough 09/20/22 09/20/22 Unknown History lamotrigine 25 mg tablet 50 mg PO BID 09/20/22 09/20/22 Unknown History levetiracetam 1,000 mg tablet 1,000 mg PO BID 09/20/22 09/20/22 Unknown History (Tomasa) lidocaine 5 % topical patch 1 patch topical DAILY PRN Back Pain 09/20/22 09/20/22 Unknown History lisinopril 20 mg tablet 20 mg PO DAILY 09/20/22 09/20/22 Unknown History metformin 1,000 mg tablet 1,000 mg PO BID 09/20/22 09/20/22 Unknown History metoprolol succinate 25 mg 25 mg PO BID 09/20/22 09/20/22 Unknown History tablet,extended release 24 hr sennosides 8.6 mg tablet (senna) 8.6 mg PO DAILY PRN Constipation 09/20/2209/20 Unknown History Physical Exam Vital Signs and Narrative: Vital Signs: Last Vital Signs Temp 97.8 F 09/20/22 14:00 Pulse 74 09/20/22 14:00 Resp 14 09/20/22 14:00 BP 126/73 09/20/22 14:00 Pulse Ox 97 09/20/22 14:00 O2 Del Method Room Air 09/20/22 14:00 BMI result Body Mass Index 30.8 Const: Other: Constitutional : Awake, interactive, not in distress Neck : Normal inspection, Supple Cardiovascular : RRR, no JVP, no lower extremity edema Respiratory : good bilateral air entry, no crackles, wheezes or rhonchi Gastrointestinal: soft, lax, Normal bowel sounds, Non tender Skin : Warm, Dry Neurological : Alert & oriented to self and place, No gross focal deficit Results Labs 09/20/22 10:48 09/20/22 10:48 Labs: Laboratory Results - last 24 hr 09/20/22 09/20/22 09/20/22 10:48 10:48 13:34 MCV 89.0 MCH 30.2 MCHC 34.0 RDW 12.1 Plt Count 353 MPV 10.4 Immature Gran % (Auto) 0.5 H Neut % (Auto) 81.8 H Lymph % (Auto) 8.6 L [place] % (Auto) 7.5 Eos % (Auto) 1.3 Baso % (Auto) 0.3 Lymph # (Auto) 1.1 L [place] # (Auto) 1.0 Eos # (Auto) 0.2 Baso # (Auto) 0.0 Abs Immat Gran (auto) 0.07 H Absolute Neuts (auto) 10.6 H Absolute Nucleated RBC 0.000 Nucleated RBC % (auto) 0.0 Anion Gap 20 Estim Creat Clear Calc 21.2 Estimated GFR 16 Random Glucose 269 H Lactic Acid 1.4 Calcium 9.5 Magnesium 2.2 Total Bilirubin 0.3 AST 7 ALT 9 Alkaline Phosphatase 63 Total Protein 8.6 H Albumin 4.2 Imaging Radiologist's Impressions: Impressions Abdomen/Pelvis CT 09/20/22 12:40 IMPRESSION: 1. Mild to moderate right hydroureteronephrosis, with an edematous enlarged right kidney, with the obstruction extending to the level of a 4 x 2 millimeter calculus in the right proximal ureter. 2. Additional calculi within the right kidney, and several small calculi layering within the urinary bladder. Her graft 3. Incidental findings include a MEDICAL OFFICE TECHNICIAN shunt, prostate enlargement, IVC filter, and fat-containing left inguinal hernia. Fleischner guidelines were followed. Assessment and Plan (1) Hydroureteronephrosis: Status: Acute (2) NAHOMY (acute kidney injury): Status: Acute (3) Pyelonephritis: Status: Acute (4) Ureteric calculus: Status: Acute Plan A 51 years old male care one resident w [facility] of seizures, HTN who presents to the hospital for loin pain evaluation. Acute kidney injury 2/2 obstructive uropathy Cr of 4 Urology to resolve the obstruction IVF monitor I\O follow BMP Acute hyponatremia 2/2 NAHOMY replace with IVF follow BMP Pyelonephritis 2/2 obstruction Treat with IV Ceftriaxone DVT PPx SCDs The patient will need 2 overnight hospital stay for urological procedure and acute kidney injury Time Spent With Patient Time: Total time managing care of this patient today ____ minutes. Quality Stroke Does the patient have a stroke diagnosis?: No VTE Prior VTE?: No VTE Risk Level:: Medical - moderate - high VTE Device Contraindication: N/A - Device Ordered VTE Drug Contraindication: Treatment Not Indicated
--- NOTE | 2022-09-20 15:04 | MHC.EDTECH ---
@ 1300 unable to draw 2nd set of cultures. Merrick has small veins, Asked another tech to try.
[2022-09-20] MEDS: levoFLOXacin/D5W 500 MG/100 ML PIGGYBACK 100 MG IV (15:09)
--- NOTE | 2022-09-20 15:10 | PC.NURSE ---
hosp at bedside, pt aware of plan of care for admission to hosp/surgery. pt was incontinent of xlg amt of yellow urine and pt was also straight cath for 50ml of yellow urine. aware..
[2022-09-20 15:18] LABS: Appearance Urine Clear; Color Urine Yellow; Glucose Urine UA >=1000 mg/dL (Negative); Leukocyte Esterase Urine Negative (Negative); Nitrite Urine Negative (Negative); PH 5.5 (5.0-9.0); UMIC TRIGGER UACC YES; Urine Blood Negative (Negative); Urine Ketones Negative (Negative); Urine Protein 30 (1+) mg/dL (Neg-Trace)
--- NOTE | 2022-09-20 15:25 | PC.NURSE ---
rn to report given to isela schaefer of [facility]. pt aware of plan of care for surgery.
--- NOTE | 2022-09-20 16:14 | PHA.MEDREC ---
Pharmacy Consult ? Medication Reconciliation Pharmacy has completed the medication reconciliation. Patient came from [facility] with medication list. Jenni Green, BarronD
[2022-09-20] MEDS: Morphine Sulfate 4 MG/ML CARTRIDGE 2 MG IVPUSH (16:57)
[2022-09-20 17:01] LABS: Bacteria Urine None Seen (None Seen); RBC Urine 0-2 /HPF (0-2); Squamous Epithelial Cell Urine 0-2 /HPF (0-2); WBC Urine 0-5 /HPF (0-5)
--- NOTE | 2022-09-20 18:04 | MHC.EDTECH ---
PATIENT WAS INCONTINENT OF URINE ,CARE GIVEN BEDDING CHANGE ,WARM BLANKET GIVEN ,PATIENT BELONGING LIST DONE ,PATIENT WATCHING TELEVISION .
--- NOTE | 2022-09-20 19:33 | PC.NURSE ---
RN assumed care at 1500. Patient medicated with PRN Morphine per APR, reports 30 min later pain went from 7 down to 5 on pain scale. Patient calm, pleasant, appropriate, maintained NPO status and was taken by PACU team.
--- NOTE | 2022-09-20 20:17 | MHC.SHP ---
Pre-Procedural Eval Section A Date of Service: 09/20/22 The patient is an INPATIENT: No Changes since office visit: No Cold of Flu in the past 2 weeks, No New Medical Problems, No Changes in Medication and No Patient answered all questions The History & Physical has been completed within 30 days and I have reviewed it.: Yes Section B Chief Complaint: R SIDED FLANK PAIN Allergies: Allergies Allergy/AdvReac Type Severity Reaction Status Date / Time Penicillins Allergy Unknown Verified 09/20/22 19:37 Plan Diagnosis/Plan: Unchanged ( Right retrograde, stent placement) I have reviewed the history and physical and performed a pertinent physical examination on my patient. No changes have occurred unless specified. Time Spent With Patient Time: Total time managing care of this patient today ____ minutes.
--- NOTE | 2022-09-20 21:12 | W.PM.OPN ---
Operative Note Operative Note Date of Service: 09/20/22 Narrative: PreOperative Diagnosis: right obstructing stone with acute renal failure Post Operative Diagnosis: above Procedure: cystoscopy, right retrograde, stent placement Surgeon: Dr Javier Anderson Anesthesia: sedation Indications for procedure: presentation with obstructing stone Procedure: After informed consent was verified the patient was brought to the operating room and placed in a supine position. Anesthesia was administered per protocol. The patient was placed in modified dorsal lithotomy position and prepped and draped in a sterile fashion. A safety pause time-out was performed. Laterality of procedure and antibiotics were confirmed, appropriate imaging was available A 22 [place] cystoscope was introduced per urethra. No abnormality was noted of urethra or bladder. Both ureteric orifices were seen in a normal position. The right ureter was cannulated with an open ended catheter and a retrograde examination was performed. filling defect at proximal ureter . A Sensor guidewire was placed under fluoroscopy and a good coil was seen within the renal pelvis. open-ended catheter advanced and renal pelvis aspirated. Fluid sent for culture. A 6 x 26 double J stent was advanced over the wire and up to the level of the renal pelvis under fluoroscopic and direct visualization. The stent was seen with appropriate coil within the renal pelvis and in the bladder after deployment. The patient tolerated the procedure well and was transferred in a stable condition to the recovery area. Pathology: Drains: Right stent
--- NOTE | 2022-09-20 21:30 | P.CONAN_ITS ---
[facility] Active Problems Active Problems: All Active Problems (Updated 09/20/22 @ 15:38 by Shea Rivas MD) Hydroureteronephrosis (Acute) Pyelonephritis (Acute) NAHOMY (acute kidney injury) (Acute) Ureteric calculus (Acute) Past Medical History Medical History Epilepsy Hemiparesis HTN (hypertension) Functional capacity: wheelchair bound Social History Social History Alcohol intake: never Smoked in Last 30 Days: No Use of substances other than those prescribed or required for medical reasons: No Advance Directives: No Advance Directives Information Provided: Yes Meds Allergies Allergy/AdvReac Type Severity Reaction Status Date / Time Penicillins Allergy Unknown Verified 09/20/22 19:37 Active Medications: Current Medications Acetaminophen (Acetaminophen 325 Mg Tablet) 650 mg PO Q6H PRN PRN Reason: Pain, Mild (Pain Scale 1-3) Sodium Chloride (Ns) 1,000 mls @ 100 mls/hr IVCONT .Q10H [facility] Morphine Sulfate (Morphine Sulfate 4 Mg/Ml Cartridge) 2 mg IVPUSH Q4H PRN; Protocol PRN Reason: Pain, Severe (Pain Scale 7-10) Last Admin: 09/20/22 16:57 Dose: 2 mg Ondansetron HCl (Ondansetron Hcl 4 Mg/2 Ml Vial) 4 mg IVPUSH Q8H PRN PRN Reason: Nausea and Vomiting Pharmacy Consult (Consult Rx Perform Med Rec) 1 each MISCELLANE ONCE PRN PRN Reason: Consult order Sodium Chloride (0.9 % Sodium Chloride Flush 3 Ml Syringe) 3 ml IVFLUSH QSHIFT [facility] Home Medications Medication Instructions Recorded Confirmed Last Taken Type acetaminophen 325 mg tablet 650 mg PO Q8H PRN fever/pain 09/20/22 09/20/22 Unknown History apixaban 5 mg tablet 5 mg PO BID 09/20/22 09/20/22 Unknown History atorvastatin 20 mg tablet 20 mg PO BEDTIME 09/20/22 09/20/22 Unknown History carbamazepine 100 mg 100 mg PO BID 09/20/22 09/20/22 Unknown History capsule,extended release [id number] carbamazepine 400 mg 400 mg PO BID 09/20/22 09/20/22 Unknown History tablet,extended release,12 hr dapagliflozin propanediol 10 mg 10 mg PO DAILY 09/20/22 09/20/22 Unknown History tablet diclofenac sodium 1 % topical gel 4 g topical Q6H pain 09/20/22 09/20/22 Unknown History docusate sodium 100 mg tablet 100 mg PO BID 09/20/22 09/20/22 Unknown History gemfibrozil 600 mg tablet 600 mg PO BID 09/20/22 09/20/22 Unknown History guaifenesin 100 mg/5 mL oral liquid 200 mg PO Q4H PRN Cough 09/20/22 09/20/22 Unknown History lamotrigine 25 mg tablet 50 mg PO BID 09/20/22 09/20/22 Unknown History levetiracetam 1,000 mg tablet 1,000 mg PO BID 09/20/22 09/20/22 Unknown History (Tomasa) lidocaine 5 % topical patch 1 patch topical DAILY PRN Back Pain 09/20/22 09/20/22 Unknown History lisinopril 20 mg tablet 20 mg PO DAILY 09/20/22 09/20/22 Unknown History metformin 1,000 mg tablet 1,000 mg PO BID 09/20/22 09/20/22 Unknown History metoprolol succinate 25 mg 25 mg PO BID 09/20/22 09/20/22 Unknown History tablet,extended release 24 hr sennosides 8.6 mg tablet (senna) 8.6 mg PO DAILY PRN Constipation 09/20/22 09/20/22 Unknown History Exam Exam Date and Time: September 20, [id number] Height,Weight and Vital Signs: Height 5 ft 5 in Weight 83.915 kg Last Vital Signs Temp 97.5 F 09/20/22 21:21 Pulse 90 09/20/22 21:26 Resp 16 09/20/22 21:26 BP 132/59 L 09/20/22 21:26 Pulse Ox 95 09/20/22 21:26 O2 Del Method Room Air 09/20/22 21:26 Pertinent Lab Results Pertinent Lab Results: Laboratory Tests 09/20/22 09/20/22 09/20/22 10:48 10:48 13:34 WBC 13.0 H RBC 4.80 Hgb 14.5 Hct 42.7 MCV 89.0 MCH 30.2 MCHC 34.0 RDW 12.1 Plt Count 353 MPV 10.4 Immature Gran % (Auto) 0.5 H Neut % (Auto) 81.8 H Lymph % (Auto) 8.6 L [place] % (Auto) 7.5 Eos % (Auto) 1.3 Baso % (Auto) 0.3 Lymph # (Auto) 1.1 L [place] # (Auto) 1.0 Eos # (Auto) 0.2 Baso # (Auto) 0.0 Abs Immat Gran (auto) 0.07 H Absolute Neuts (auto) 10.6 H Absolute Nucleated RBC 0.000 Nucleated RBC % (auto) 0.0 Sodium 131 L Potassium 4.6 Chloride 97 Carbon Dioxide 19 L Anion Gap 20 BUN 61 H Creatinine 4.00 H* Estim Creat Clear Calc 21.2 Estimated GFR 16 Random Glucose 269 H Lactic Acid 1.4 Calcium 9.5 Magnesium 2.2 Total Bilirubin 0.3 AST 7 ALT 9 Alkaline Phosphatase 63 Total Protein 8.6 H Albumin 4.2 Urine Color Urine Appearance Urine pH Ur Specific [place] Urine Protein Urine Glucose (UA) Urine Ketones Urine Blood Urine Nitrite Ur Leukocyte Esterase Urine RBC Urine WBC Ur Squamous Epith Cells Urine Bacteria Hyaline Casts 09/20/22 15:07 WBC RBC Hgb Hct MCV MCH MCHC RDW Plt Count MPV Immature Gran % (Auto) Neut % (Auto) Lymph % (Auto) [place] % (Auto) Eos % (Auto) Baso % (Auto) Lymph # (Auto) [place] # (Auto) Eos # (Auto) Baso # (Auto) Abs Immat Gran (auto) Absolute Neuts (auto) Absolute Nucleated RBC Nucleated RBC % (auto) Sodium Potassium Chloride Carbon Dioxide Anion Gap BUN Creatinine Estim Creat Clear Calc Estimated GFR Random Glucose Lactic Acid Calcium Magnesium Total Bilirubin AST ALT Alkaline Phosphatase Total Protein Albumin Urine Color Yellow Urine Appearance Clear Urine pH 5.5 Ur Specific [place] 1.020 Urine Protein 30 (1+) H Urine Glucose (UA) >=1000 H Urine Ketones Negative Urine Blood Negative Urine Nitrite Negative Ur Leukocyte Esterase Negative Urine RBC 0-2 Urine WBC 0-5 Ur Squamous Epith Cells 0-2 Urine Bacteria None Seen Hyaline Casts 6-10 Airway Mallampati Class: III TM Dist: >3cm Neck ROM: Full Loose/Missing/Broken Teeth: Yes and Upper Heart: RRR Lungs: CTA Assessment and Plan Final Anesthetic Review ASA Class: III and Emergency Final Preanesthetic Review: Meds/Allgs Chart Reviewed, Consent Obtained/Reviewed and Anes Risks/Benef Reviewed Patient Risk: Intermediate Procedure Risk: Low Anesthetic Plan Anesthetic Plan: GA Disposition: Standard PACU
[2022-09-20] MEDS: 0.9 % Sodium Chloride 1,000 ML 100 ML IVCONT (22:32)
--- NOTE | 2022-09-20 22:48 | PC.NURSE ---
patient alert and oriented,comfortable,has no complaints at this time,thompson is draining blood tinged urine no cloths noted,admitted by blending tank tender helper Cassy
[2022-09-20] MEDS: oxyCODONE HCl Immed Release 5 MG TABLET PO (23:29)
[2022-09-21 03:04] VITALS: BP 120/72; PULSE 68; RESP 17; TEMP 36.2; O2SAT 96
[2022-09-21] MEDS: oxyCODONE HCl Immed Release 5 MG TABLET PO (06:06)
[2022-09-21 06:41] LABS: Anion Gap 14 (12-20); Blood Urea Nitrogen 43 mg/dL (9-16); Calcium 8.6 mg/dL (8.4-10.2); Carbon Dioxide 17 mmol/L (22-29); Chloride 110 mmol/L (96-108); Estimated Glomerular Filt Rate 29; Glucose Random 167 mg/dL (60-115); Potassium 4.4 mmol/L (3.3-5.1); Sodium 137 mmol/L (135-145)
[2022-09-21 06:56] VITALS: BP 142/73; PULSE 73; RESP 18; TEMP 36.1; O2SAT 96
[2022-09-21] MEDS: 0.9 % Sodium Chloride 1,000 ML 100 ML IVCONT ×2 (07:11→17:20)
--- NOTE | 2022-09-21 11:37 | HO.POSTANES ---
Post Anesthesia Evaluation Post Anesthesia Evaluation Date of Service: 09/21/22 Vital Signs: Vital Signs Temp Pulse Resp BP Pulse Ox O2 Del Method 09/21/22 06:56 97 F 73 18 142/73 H 96 Room Air 09/21/22 03:04 97.2 F 68 17 120/72 96 Room Air Anesthesia: General LMA Mental Status: Awake Pain Control: Satisfactory Nausea/Vomiting: None Hydration: Adequate Anesthesia-Related Issues: No Anes. Related Issues
--- NOTE | 2022-09-21 11:57 | P.PNIM_ITS ---
Subjective Subjective Date of Service: 09/21/22 Interval History: Status post ureteral stent 09/20/2022. No acute issues in the postop period. Patient states he feels much better Review of Systems Denies chest pain Denies shortness of breath Denies nausea vomiting diarrhea Denies fever chills Physical Exam Vital Signs: Vital Signs: Last Vital Signs Temp 97 F 09/21/22 06:56 Pulse 73 09/21/22 06:56 Resp 18 09/21/22 06:56 BP 142/73 H 09/21/22 06:56 Pulse Ox 96 09/21/22 06:56 O2 Del Method Room Air 09/21/22 06:56 BMI result Body Mass Index 30.8 Const: Other: Awake alert resting comfortably in bed Resp: Other: Clear to auscultation bilaterally no rales rhonchi or wheezes Cardio: Other: No S4; positive S1-S2; no S3 murmurs or gallops GI: Other: Soft nontender nondistended normoactive bowel sounds x4 quadrants Extrem: Other: No edema bilaterally Objective Data Active Medications Acetaminophen (Acetaminophen 325 Mg Tablet) 650 mg PO Q6H PRN PRN Reason: Pain, Mild (Pain Scale 1-3) Fentanyl (Fentanyl Citrate/Pf 100 Mcg/2 Ml Vial) 25 mcg IVPUSH Q5M PRN; Pr otocol PRN Reason: Pain, Moderate(Pain Scale 4-6) Sodium Chloride (Ns) 1,000 mls @ 100 mls/hr IVCONT .Q10H [place] Last Admin: 09/21/22 07:11 Dose: 100 mls/hr Documented By: VIOLETA Morphine Sulfate (Morphine Sulfate 4 Mg/Ml Cartridge) 2 mg IVPUSH Q4H PRN; Protocol PRN Reason: Pain, Severe (Pain Scale 7-10) Last Admin: 09/20/22 16:57 Dose: 2 mg Documented By: YADIRA Ondansetron HCl (Ondansetron Hcl 4 Mg/2 Ml Vial) 4 mg IVPUSH Q8H PRN PRN Reason: Nausea and Vomiting Oxycodone HCl (Oxycodone Hcl Immed Release 5 Mg Tablet) 5 mg PO Q4H PRN PRN Reason: Pain, Severe (Pain Scale 7-10) Last Admin: 09/21/22 06:06 Dose: 5 mg Documented By: JOHNSON Pharmacy Consult (Consult Rx Perform Med Rec) 1 each MISCELLANE ONCE PRN PRN Reason: Consult order Sodium Chloride (0.9 % Sodium Chloride Flush 3 Ml Syringe) 3 ml IVFLUSH QSHIFT [facility] Last Admin: 09/21/22 07:10 Dose: Not Given Documented By: VIOLETA Non-Admin Reason: IV Running Labs 09/20/22 10:48 09/21/22 06:09 Labs: Laboratory Results - last 24 hr 09/20/22 09/20/22 09/21/22 13:34 15:07 06:09 Anion Gap 14 Estim Creat Clear Calc 36.0 Estimated GFR 29 Random Glucose 167 H Lactic Acid 1.4 Calcium 8.6 D Urine Color Yellow Urine Appearance Clear Urine pH 5.5 Ur Specific [place] 1.020 Urine Protein 30 (1+) H Urine Glucose (UA) >=1000 H Urine Ketones Negative Urine Blood Negative Urine Nitrite Negative Ur Leukocyte Esterase Negative Urine RBC 0-2 Urine WBC 0-5 Ur Squamous Epith Cells 0-2 Urine Bacteria None Seen Hyaline Casts 6-10 Assessment and Plan (1) Hydroureteronephrosis: Status: Acute (2) NAHOMY (acute kidney injury): Status: Acute (3) Pyelonephritis: Status: Acute Plan 51-year-old male long-term resident of [facility] presents with acute renal failure found at [facility]. Patient had previously complained of constipation vague abdominal pain which responded to therapies. Routine labs were done which demonstrated acute renal failure; patient was transported to [facility] where he was found to have an obstructive uropathy with hydro nephrosis/ureter. On 09/20/2022 he underwent stone removal with stent placement. He has been doing well in the postoperative. 1.Acute kidney injury/obstructive uropathy -status post stent placement without issue -creatinine improving as expected after obstruction removed -urine culture thus far negative; hold on antibiotics pending culture -follow renals/divalents 2.Acute hyponatremia -normalized with volume repletion -follow renals/divalents 3.Pyelonephritis - Ceftriaxone pending cultures Full code SCDs Patient will require ongoing hospitalization for IV antibiotics to treat pyelonephritis and to document improvement of renal failure Time Spent With Patient Time: Total time managing care of this patient today ____ minutes. Quality Stroke Does the patient have a stroke diagnosis?: No VTE Prior VTE?: No VTE Risk Level:: Medical - moderate - high VTE Device Contraindication: N/A - Device Ordered VTE Drug Contraindication: Treatment Not Indicated
--- NOTE | 2022-09-21 14:15 | MHC.CM.PN ---
pt from [facility] where hew ill return when medically stable
[2022-09-21 15:25] VITALS: BP 132/71; PULSE 80; RESP 16; TEMP 36.1; O2SAT 96
[2022-09-21 19:23] VITALS: BP 158/73; PULSE 83; RESP 17; TEMP 36.3; O2SAT 96
[2022-09-21 20:21] VITALS: O2SAT 97
[2022-09-22 03:06] VITALS: BP 142/84; PULSE 71; RESP 16; TEMP 36; O2SAT 96
[2022-09-22] MEDS: 0.9 % Sodium Chloride 1,000 ML 100 ML IVCONT (03:34)
[2022-09-22 05:31] LABS: MANUAL DIFF FLAG NO
[2022-09-22 05:37] LABS: Basophils Percent Auto 0.5 % (0-2); Eosinophils Absolute Auto 0.2 X10*3/uL (0.0-0.4); Eosinophils Percent Auto 2.3 % (0-4); Hematocrit 38.2 % (42.0-52.0); Hemoglobin 12.6 g/dl (14.0-18.0); Imm Gran Abs Auto 0.04 X10*3/uL (0.00-0.03); Imm Gran Pct Auto 0.5 % (0.0-0.4); Lymphocytes Absolute Auto 1.6 X10*3/uL (1.2-4.9); Lymphocytes Percent Auto 19.6 % (20-40); Mean Corpuscular Hemoglobin 29.7 pg (27.0-33.0); Mean Corpuscular Volume 90.1 fL (80.0-98.0); Mean Platelet Volume 10.3 fL (9.4-12.4); Monocytes Absolute Auto 0.8 X10*3/uL (0.1-1.2); Monocytes Percent Auto 9.5 % (2-11); Neutrophils Absolute Auto 5.6 x10*3/uL (2.0-8.3); Neutrophils Percent Auto 67.6 % (45-73); Platelet Count 343 X10*3/uL (160-400); Red Blood Count 4.24 X10*6/uL (4.60-5.80); White Blood Count 8.2 X10*3/uL (4.8-10.8)
[2022-09-22 05:54] LABS: Alanine Aminotransferase 8 U/L (0-40); Albumin Level 3.4 g/dL (3.5-5.0); Alkaline Phosphatase 55 U/L (39-117); Anion Gap 12 (12-20); Aspartate Amino Transferase 6 U/L (5-37); Bilirubin Total 0.2 mg/dL (0.0-1.0); Blood Urea Nitrogen 31 mg/dL (9-16); Calcium 8.6 mg/dL (8.4-10.2); Carbon Dioxide 19 mmol/L (22-29); Chloride 113 mmol/L (96-108); Creatinine Clr Calc Pharmacy 59.9; Estimated Glomerular Filt Rate 52; Glucose Fasting 196 mg/dL (60-99); Potassium 4.1 mmol/L (3.3-5.1); Sodium 140 mmol/L (135-145); Total Protein 7.1 g/dL (6.5-8.0)
[2022-09-22 07:06] VITALS: BP 162/80; PULSE 81; RESP 18; TEMP 36.6; O2SAT 95
--- NOTE | 2022-09-22 12:47 | P.DS_ITS ---
DS: Providers Provider Date of Service: 09/22/22 Date of admission: 09/20/22 14:54 Date of discharge: 09/22/22 Primary care physician: Prince Bo DO DS: Diagnosis Discharge Diagnosis (1) Hydroureteronephrosis: Status: Acute (2) NHAOMY (acute kidney injury): Status: Acute (3) Pyelonephritis: Status: Acute (4) Ureteric calculus: Status: Acute DS: Summary Hospital Course Hospital Course: 51-year-old male resident of [facility] presents to emergency room with acute renal failure; creatinine of 4. In the 1-2 weeks prior to his admission it was felt his problems related to constipation however when constipation resolved he still felt done well. BNP demonstrated creatinine 4. In the emergency room his workup was consistent with a right renal calculus that was obstructing his ureter. On 05/21/20[address] he was seen by Dr. Anderson (urology) and subsequently was taken to the OR and underwent a cystoscopy with a right retrograde study and stent placement. Over the next 24 hours, the patient creatinine returned almost to baseline with a creatinine on discharge 1.4. Patient is now feeling well and asking for return to [facility]. He is medically acceptable for same. All cultures have remained negative Time Spent with Patient Time attestation: Total time managing care of this patient today ____ minutes. Discharge coordination time: Greater than 30 minutes Quality: Safe Use of Opioids Does Pt have an Active Cancer Diagnosis on the Problem List?: No Quality: Stroke Does the patient have a stroke diagnosis?: No Physical Exam Vital Signs: Vital Signs: Last Vital Signs Temp 98 F 09/22/22 07:06 Pulse 81 09/22/22 07:06 Resp 18 09/22/22 07:06 BP 162/80 H 09/22/22 07:06 Pulse Ox 95 09/22/22 07:06 O2 Del Method Room Air 09/22/22 07:06 BMI result Body Mass Index 30.8 Const: Other: Awake alert resting comfortably in bed Resp: Other: Clear to auscultation bilaterally no rales rhonchi or wheezes Cardio: Other: No S4; positive S1-S2; no S3 murmurs or gallops GI: Other: Soft nontender nondistended normoactive bowel sounds x4 quadrants Extrem: Other: No edema bilaterally DS: Data Data Completed and Pending Labs on day of discharge: Laboratory Results - last 24 hr 09/22/22 09/22/22 05:08 05:08 WBC 8.2 RBC 4.24 L Hgb 12.6 L Hct 38.2 L MCV 90.1 MCH 29.7 MCHC 33.0 RDW 12.0 Plt Count 343 MPV 10.3 Immature Gran % (Auto) 0.5 H Neut % (Auto) 67.6 Lymph % (Auto) 19.6 L [place] % (Auto) 9.5 Eos % (Auto) 2.3 Baso % (Auto) 0.5 Lymph # (Auto) 1.6 [place] # (Auto) 0.8 Eos # (Auto) 0.2 Baso # (Auto) 0.0 Abs Immat Gran (auto) 0.04 H Absolute Neuts (auto) 5.6 Absolute Nucleated RBC 0.000 Nucleated RBC % (auto) 0.0 Sodium 140 Potassium 4.1 Chloride 113 H Carbon Dioxide 19 L Anion Gap 12 BUN 31 H Creatinine 1.42 H Estim Creat Clear Calc 59.9 Estimated GFR 52 Fasting Glucose 196 H Calcium 8.6 Total Bilirubin 0.2 AST 6 ALT 8 Alkaline Phosphatase 55 Total Protein 7.1 Albumin 3.4 L Preliminary micro results at discharge 09/20/22 14:26 Blood Culture - Preliminary Blood - Venous No growth after 24 hours. 09/20/22 13:34 Blood Culture - Preliminary Blood - Venous No growth after 24 hours. Discharge Plan Discharge Anticipated Discharge Date/Time: 09/22/22 12:26 Patient Disposition: Xfer [facility] Discharge Diagnosis: Right obstructing renal calculus with subsequent renal failure Referrals: Prince Bo DO [Primary Care Provider] - 1 Week Discharge Medications: Continued sennosides [senna] 8.6 mg Tablet 8.6 mg PO DAILY PRN (Reason: Constipation) acetaminophen 325 mg Tablet 650 mg PO Q8H PRN (Reason: fever/pain) atorvastatin 20 mg Tablet 20 mg PO BEDTIME lisinopril 20 mg Tablet 20 mg PO DAILY guaifenesin 100 mg/5 mL Liquid 200 mg PO Q4H PRN (Reason: Cough) lamotrigine 25 mg Tablet 50 mg PO BID carbamazepine 400 mg Tablet Extended Release 12 Hr 400 mg PO BID gemfibrozil 600 mg Tablet 600 mg PO BID metformin 1,000 mg Tablet 1,000 mg PO BID lidocaine 5 % Adhesive Patch,Medicated 1 patch TOPICAL DAILY PRN (Reason: Back Pain) Rx Instructions: leave on most painful area for up to 12 hrs metoprolol succinate 25 mg Tablet Extended Release 24 Hr 25 mg PO BID docusate sodium 100 mg Tablet 100 mg PO BID carbamazepine 100 mg Capsule, Er Multiphase 12 Hr 100 mg PO BID levetiracetam [Keppra] 1,000 mg Tablet 1,000 mg PO BID diclofenac sodium 1 % Gel 4 g TOPICAL Q6H Rx Instructions: apply to ankles apixaban 5 mg Tablet 5 mg PO BID dapagliflozin propanediol 10 mg Tablet 10 mg PO DAILY Discharge Orders: Discharge Order (Routine); Ordered 09/22/22 Ordered By: Prince Bo Diet: Advance to usual diet Activity on Discharge: As tolerated Stand Alone Forms: Patient Portal Discharge page Care Plan Goals: Resume all medicines as prior to hospital Health Concerns: Dr. Anderson's office will call to arrange removal of stent Plan of Treatment: You must drink plenty of fluids Assessment: See discharge summary
[2022-09-22 15:06] VITALS: BP 160/82; PULSE 77; RESP 18; TEMP 36.3; O2SAT 97
--- NOTE | 2022-09-22 16:24 | MHC.CM.PN ---
PT CLEARED TO RETURN TO [facility] TODAY NEIL ATTEMPTED TO REACH PTS PRIMARY AND ALTERNATE HCP'S AT ALL NUMBERS ON FILE / HCP THEY WERE EACH EITHER OOS OR WRONG NUMBERS PT WAS TRANSPORT[facility]
== END 2022-09-22 16:50 | DRG 660 ==
LOC: HO.ED 14:46 → HO.SSS 14:49 → HO.SSSA 20:02 → HO.S3 20:57
PROVIDERS: Physician Assistant Medical; Urology; Admitting Provider Student in an Organized Health Care Education/Training Program; Emergency Provider Student in an Organized Health Care Education/Training Program; PCP Hospitalist; Visit Provider Hospitalist
PROC: 0TJB8ZZ Inspection of Bladder, Via Natural or Artificial Opening Endoscopic (ICD-10-PCS; CPT 52005; principal; 2022-09-20 18:00)
DX: N13.6 Pyonephrosis (principal); E87.1 Hypo-osmolality and hyponatremia; N17.9 Acute kidney failure, unspecified; G40.909 Epilepsy, unspecified, not intractable, without status epilepticus; I10 Essential (primary) hypertension; Z79.01 Long term (current) use of anticoagulants; Z79.84 Long term (current) use of oral hypoglycemic drugs; Z79.899 Other long term (current) drug therapy
CPT/HCPCS: 36415; 74018; 74176; 80048; 80053; 81001; 83605; 83735; 85025; 87040; 87086; 99285; C1758; C1769; C2617; J0696; J1100; J1885; J1956; J2250; J2270; J2371; J3010; Q9967

== ENCOUNTER → 2022-09-20 10:10 | Outpatient (BNV) | payer MEDICARE, MEDICAID, SELFPAY | PROVIDERS: Emergency Provider Student in an Organized Health Care Education/Training Program; Visit Provider Urology | DX: N20.0 Calculus of kidney (principal); N17.9 Acute kidney failure, unspecified | CPT/HCPCS: 52332; 99284 ==

== ENCOUNTER → 2022-09-20 14:54 | Outpatient (BNV) | payer MEDICARE, MEDICAID, SELFPAY | PROVIDERS: Admitting Provider Student in an Organized Health Care Education/Training Program; Emergency Provider Student in an Organized Health Care Education/Training Program; PCP Hospitalist; Visit Provider Hospitalist | DX: N13.30 Unspecified hydronephrosis (principal); N17.9 Acute kidney failure, unspecified; N12 Tubulo-interstitial nephritis, not specified as acute or chronic; N20.1 Calculus of ureter | CPT/HCPCS: 99223; 99233; 99239 ==

== ENCOUNTER 2022-10-12 13:23 | Outpatient (AMB) | payer MEDICARE, MEDICAID, SELFPAY ==
--- NOTE | 2022-10-12 13:32 | MHC.OFFVIS ---
Intake Intake Visit Reasons: H&P (ESWL-10/31) Intake Note: [facility] Patient is Present for h&p Current Medication: none Antibiotic Allergy: Penicilins Blood Thinner: Apixaban Pharmacy: [facility] Allergies Penicillins Allergy (Verified 10/12/22 13:41) Unknown HPI HPI Comments History of Present Illness Details Flavio is a pleasant male. He is a patient Dr. Bo. He seen for the following urologic conditions - nephrolithiasis Here for ESWL assessment Indwelling stent right side Plan for ESWL right side with stent Nephrolithiasis Seen in hospital September 2022 Imaging - 10/03 CT right proximal ureteric stone with hydronephrosis, creatinine 1.4 Intervention - 10/03 stent placed PFS Medical History Epilepsy Hemiparesis HTN (hypertension) Social History Household Members: Other Housing: Other Housing Other:: [facility] Alcohol intake: never Patient Tobacco Use Status: Never used Tobacco service: No Review of Systems Const Denies chills and Denies fever(s) Card Reports no additional complaints and Denies syncope Resp Denies cough GI Denies abdominal pain and Denies heartburn Reports as per HPI and Denies change in libido Neuro Denies syncope Psych Denies change in libido Endo Denies change in libido Physical Exam Const General: cooperative, healthy appearing, comfortable and no acute distress Orientation/consciousness: patient oriented x3 HEENT Face and sinus: Yes normal facial exam Mouth: moist mucous membranes Neck Neck: Yes normal visual inspection, Yes full ROM and Yes trachea midline Chest Chest palpation & inspection: normal inspection of the chest Resp Effort & Inspection: normal respiratory effort, able to speak in complete sentences and no respiratory distress GI Inspection: Yes normal to inspection Back/Spine/Pelvis Cervical Spine: normal cervical lordosis Thoracic/Lumbar Spine: thoracic and lumbar spine normal to inspection Skin General skin exam: no rashes or lesions noted Neuro General: patient oriented x3, gait normal, tone normal and moves all extremities Extrem General: Yes normal to inspection and Yes capillary refill normal Assessment & Plan Assessment & Plan (1) Calcium nephrolithiasis: Code(s): N20.0 - Calculus of kidney Plan Extracorporeal Shock Wave Lithotripsy We discussed the nature of the decision and reasonable alternatives for performing the above surgery. Interventions include chemical dissolution, ESWL, ureteroscopy with laser lithotripsy and stent placement, PCNL. Options such as medical therapy were discussed. The relative uncertainties and benefits related to each alternate procedure were adequately discussed. General surgical risks including, but not limited to, pain, bleeding, infection, myocardial infarction, pulmonary embolus, deep vein thrombosis and cerebrovascular accident which may result in further hospitalization were discussed. Full disclosure of the procedure as well as all major risks, benefits and complications were discussed including but not limited to risks of bleeding, injury to the kidney with hematoma or christian-hematoma, failure to fragments stone, potential for ureteric obstruction from stone passage and need for secondary procedures. There is a small long-term risk of hypertension and a question chas of diabetes. Success rate of fragmentation and passage is approximately 70- 75%. This is compared to the risks and benefits for ureteroscopy which has a higher success rate but is a more invasive procedure. The success rate of the procedure was discussed. Success of the procedure in the short-term does not necessarily guarantee that long-term success will be maintained. Suitable follow up will need to be maintained. The patient showed understanding of the discussion as well as the typical recovery time, and the outpatient nature of this procedure. Opportunity was given for questions. Repeat-back protocol used to confirm understanding. They wish to proceed with right ESWL - cysto stent removal Patient Instructions: Imaging studies, laboratory and physical exam results were discussed and reviewed in detail. No major barriers to patient understanding were identified. An opportunity to ask questions regarding the treatment plan was provided. All questions were answered. The patient expressed understanding and agreement with the above treatment plan. The patient is aware they should contact our office by phone for worsening of their current condition or the appearance of new urologic symptoms. Compliance is encouraged with any medications and followup testing that is ordered. It is a privilege to participate in the urologic care of your patient. If you have any questions or concerns regarding treatment for the above conditions, or other urologic issues, please do not hesitate to contact me. The office telephone contact is [phone]. This note is constructed using voice recognition software. While every effort has been made to ensure accuracy advanced quality engineer errors may have been included. Yours sincerely, Dr Javier Anderson MD, [facility] - Urology Providers of Expert, Compassionate Care for the Genitourinary System Coding Level of Care Code Est Pt Level 4 (88355) Diagnoses Calcium nephrolithiasis N20.0
== END 2022-10-12 13:50 | disposition home or self-care (01) ==
PROVIDERS: PCP Hospitalist; Visit Provider Urology
DX: N20.0 Calculus of kidney (principal)
CPT/HCPCS: 99214

== ENCOUNTER → 2022-10-12 13:23 | Outpatient (BNVA) | payer MEDICARE, MEDICAID, SELFPAY | PROVIDERS: PCP Hospitalist; Visit Provider Urology | DX: N20.0 Calculus of kidney (principal) | CPT/HCPCS: 99212 ==

== ENCOUNTER 2022-10-31 06:04 | Day surgery (SDC) | payer MEDICARE, MEDICAID, SELFPAY ==
[2022-10-29 14:24] VITALS: BMI 27.4
--- NOTE | ~2022-10-31 | XR_ITS ---
EXAMINATION: XR ABDOMEN KUB CLINICAL INDICATION: ESWL right side COMPARISON: CT 09/20/2022 TECHNIQUE: AP view of the abdomen. FINDINGS: Right ureteral stent is present with upper end overlying the region of the right kidney and lower end overlying the urinary bladder. IVC filter is noted. Shunt catheter is present in the left abdomen. Redemonstrated clustered calcifications in the region of the mid right kidney measuring up to 9 mm, similar to prior CT. Nonobstructive bowel gas pattern. No acute osseous findings are seen. XR/XR KUB IMPRESSION: Redemonstrated clustered calcifications in the region of the mid right kidney measuring up to 9 mm.
[2022-10-31 06:43] VITALS: BP 144/71; PULSE 71; RESP 16; TEMP 36.3; O2SAT 96
--- NOTE | 2022-10-31 06:51 | PC.NURSE ---
This nurse spoke with patients nurse at [facility], Nida Peña. Verified that patient has been NPO since midnight and what medications that he took this AM. See MAR.
[2022-10-31 06:52] LABS: Glucose, Whole Blood 165 mg/dL (60-115)
--- NOTE | 2022-10-31 07:20 | P.CONAN_ITS ---
Documented by User: Birgit Andrews NP 10/30/22 15:03 HPI - Anesthesia Eval Consult details Narrative: 51yo M for Right ESWL with Stent Removal Medically optimized per facility MD at [facility] for DVTs Epilepsy without seizure for >1yr s/p cysto, etc 09/2022 GA-LMA 5 PMFSH Active Problems Active Problems: All Active Problems (Updated 10/29/22 @ 14:17 by Cris Benitez RN) Calcium nephrolithiasis (Acute) Past Medical History Medical History Intracerebral hemorrhage DVT (deep venous thrombosis) Hyperlipidemia ADD (attention deficit disorder) Type 2 diabetes mellitus Hemiparesis HTN (hypertension) Epilepsy Surgical History Surgical History Hx of cystoscopy Social History Social History Household Members: Other Housing: Other Housing Other:: resides at [facility] Alcohol intake: never Patient Tobacco Use Status: Current everyday Tobacco user Tobacco use type: Cigarette Cigarettes Per Day: 4 Years Smoked: unknown Use of substances other than those prescribed or required for medical reasons: No Have you been hit, kicked, punched, or otherwise hurt by someone within the past year? If so, by whom?: No Are you DNR?: No Advance Directives: No (kun) Advance Directives Information Provided: Yes Advance Directives on File: Yes Advance Directives Date on File: 09/26/22 Recently lost weight without trying: No Eating poorly because of decreased appetite: No Nutrition Risks: No Nutritional Risk service: No Meds Allergies Allergy/AdvReac Type Severity Reaction Status Date / Time Penicillins Allergy Unknown Verified 10/31/22 06:51 Home Medications Medication Instructions Recorded Confirmed Last Taken Type acetaminophen 325 mg tablet 650 mg PO Q8H PRN fever/pain 09/20/22 10/31/22 Unknown History apixaban 5 mg tablet 5 mg PO BID 09/20/22 10/31/22 10/26/22 History atorvastatin 20 mg tablet 20 mg PO BEDTIME 09/20/22 10/31/22 Unknown History carbamazepine 100 mg 100 mg PO BID 09/20/22 10/31/22 10/31/22 History capsule,extended release [id number] carbamazepine 400 mg 400 mg PO BID 09/20/22 10/31/22 10/31/22 History tablet,extended release,12 hr dapagliflozin propanediol 10 mg 10 mg PO DAILY 09/20/22 10/31/22 Unknown History tablet diclofenac sodium 1 % topical gel 4 g topical Q6H pain 09/20/22 10/31/22 Unknown History docusate sodium 100 mg tablet 100 mg PO BID 09/20/22 10/31/22 Unknown History gemfibrozil 600 mg tablet 600 mg PO BID 09/20/22 10/31/22 Unknown History guaifenesin 100 mg/5 mL oral liquid 200 mg PO Q4H PRN Cough 09/20/22 10/31/22 Unknown History lamotrigine 25 mg tablet 50 mg PO BID 09/20/22 10/31/22 Unknown History levetiracetam 1,000 mg tablet 1,000 mg PO BID 09/20/22 10/31/22 10/31/22 History (Tomasa) lidocaine 5 % topical patch 1 patch topical DAILY PRN Back Pain 09/20/22 10/31/22 Unknown History lisinopril 20 mg tablet 20 mg PO DAILY 09/20/22 10/31/22 Unknown History metformin 1,000 mg tablet 1,000 mg PO BID 09/20/22 10/31/22 Unknown History metoprolol succinate 25 mg 25 mg PO BID 09/20/22 10/31/22 Unknown History tablet,extended release 24 hr sennosides 8.6 mg tablet (senna) 8.6 mg PO DAILY PRN Constipation 09/20/22 10/31/22 Unknown History Exam Exam Date and Time: October 30, 2022 1032 Height,Weight and Vital Signs: Height 5 ft 6 in Weight 76.884 kg Pertinent Lab Results Pertinent Lab Results: Laboratory Tests 09/22/22 05:08 WBC 8.2 Hgb 12.6 L Hct 38.2 L Plt Count 343 Sodium 140 Potassium 4.1 Chloride 113 H Carbon Dioxide 19 L BUN 31 H Creatinine 1.42 H Assessment and Plan Assessment Anesthesia Assessment: Chart Reviewed Documented by User: Jacklyn Mason DO 10/31/22 07:24 [facility] Past Medical History Medical History Intracerebral hemorrhage DVT (deep venous thrombosis) Hyperlipidemia ADD (attention deficit disorder) Type 2 diabetes mellitus Hemiparesis HTN (hypertension) Epilepsy Surgical History Surgical History Hx of cystoscopy History of Problems with Anesthesia: No Social History Social History Household Members: Other Housing: Other Housing Other:: resides at [facility] Alcohol intake: never Patient Tobacco Use Status: Current everyday Tobacco user Tobacco use type: Cigarette Cigarettes Per Day: 4 Years Smoked: unknown Use of substances other than those prescribed or required for medical reasons: No Have you been hit, kicked, punched, or otherwise hurt by someone within the past year? If so, by whom?: No Are you DNR?: No Advance Directives: No (kun) Advance Directives Information Provided: Yes Advance Directives on File: Yes Advance Directives Date on File: 09/26/22 Recently lost weight without trying: No Eating poorly because of decreased appetite: No Nutrition Risks: No Nutritional Risk service: No Meds Allergies Allergy/AdvReac Type Severity Reaction Status Date / Time Penicillins Allergy Unknown Verified 10/31/22 06:51 Home Medications Medication Instructions Recorded Confirmed Last Taken Type acetaminophen 325 mg tablet 650 mg PO Q8H PRN fever/pain 09/20/22 10/31/22 Unknown History apixaban 5 mg tablet 5 mg PO BID 09/20/22 10/31/22 10/26/22 History atorvastatin 20 mg tablet 20 mg PO BEDTIME 09/20/22 10/31/22 Unknown History carbamazepine 100 mg 100 mg PO BID 09/20/22 10/31/22 10/31/22 History capsule,extended release [id number] carbamazepine 400 mg 400 mg PO BID 09/20/22 10/31/22 10/31/22 History tablet,extended release,12 hr dapagliflozin propanediol 10 mg 10 mg PO DAILY 09/20/22 10/31/22 Unknown History tablet diclofenac sodium 1 % topical gel 4 g topical Q6H pain 09/20/22 10/31/22 Unknown History docusate sodium 100 mg tablet 100 mg PO BID 09/20/22 10/31/22 Unknown History gemfibrozil 600 mg tablet 600 mg PO BID 09/20/22 10/31/22 Unknown History guaifenesin 100 mg/5 mL oral liquid 200 mg PO Q4H PRN Cough 09/20/22 10/31/22 Unknown History lamotrigine 25 mg tablet 50 mg PO BID 09/20/22 10/31/22 Unknown History levetiracetam 1,000 mg tablet 1,000 mg PO BID 09/20/22 10/31/22 10/31/22 History (Tomasa) lidocaine 5 % topical patch 1 patch topical DAILY PRN Back Pain 09/20/22 10/31/22 Unknown History lisinopril 20 mg tablet 20 mg PO DAILY 09/20/22 10/31/22 Unknown History metformin 1,000 mg tablet 1,000 mg PO BID 09/20/22 10/31/22 Unknown History metoprolol succinate 25 mg 25 mg PO BID 09/20/22 10/31/22 Unknown History tablet,extended release 24 hr sennosides 8.6 mg tablet (senna) 8.6 mg PO DAILY PRN Constipation 09/20/22 10/31/22 Unknown History Exam Exam Date and Time: October 31, 2022 0715 Height,Weight and Vital Signs: Height 5 ft 6 in Weight 76.884 kg Vital Signs Temperature 97.4 F 10/31/22 06:43 Pulse Rate 71 10/31/22 06:43 Respiratory Rate 16 10/31/22 06:43 Blood Pressure 144/71 H 10/31/22 06:43 Pulse Oximetry 96 10/31/22 06:43 Oxygen Delivery Method Room Air 10/31/22 06:43 Temperature 97.4 F 10/31/22 06:43 Pulse Rate 71 10/31/22 06:43 Respiratory Rate 16 10/31/22 06:43 Blood Pressure 144/71 H 10/31/22 06:43 Pulse Oximetry 96 10/31/22 06:43 Oxygen Delivery Method Room Air 10/31/22 06:43 Airway Mallampati Class: II Neck ROM: Limited Loose/Missing/Broken Teeth: Yes (multiple broken teeth) Heart: S1S2 Lungs: CTAB Assessment and Plan Assessment Anesthesia Assessment: Anesthesia Plan Discussed and Chart Reviewed Final Anesthetic Review History of Problems with Anesthesia: No NPO: Yes ASA Class: III Final Preanesthetic Review: No Changes in Pt Med Stat, Meds/Allgs Chart Reviewed, Consent Obtained/Reviewed and Anes Risks/Benef Reviewed Patient Risk: Intermediate Procedure Risk: Low Anesthetic Plan Anesthetic Plan: MAC: and Agree w/ Assess. and Plan Disposition: Standard PACU
[2022-10-31] MEDS: Lactated Ringers 1,000 ML 100 ML IVCONT (07:22)
--- NOTE | 2022-10-31 07:32 | P.HPSUR_ITS ---
Pre-Procedural Eval Section A Date of Service: 10/31/22 The patient is an INPATIENT: No The History & Physical has been completed within 30 days and I have reviewed it.: No Section B Chief Complaint: Calculus of kidney Details of Present Illness: right renal stone with stent Relevant Family History (Specify if Yes): No Relevant Social History: None Present Medications: None Medical History: No relevant PMH History of Previous Operations: Relevant previous surgery/procedure and date(s) Allergies: Allergies Allergy/AdvReac Type Severity Reaction Status Date / Time Penicillins Allergy Unknown Verified 10/31/22 06:51 Review of Systems Sugical H&P ROS: Negative: Constitution, Cardiovascular, Respiratory, Neurological, Psychiatric, Hem-Onc, Allergic/Immunologic, Gastrointestinal, Gen itourinary, Musculoskeletal, Integumentary, Endocrine and Eyes/Ears/Nose/Throat Exam Surgical H&P Exam: Normal: HEENT, Normal: Heart, Normal: Lungs, Normal: Extremities, Normal: Abdomen, Normal: Skin and Normal: Neurological Plan Diagnosis/Plan: Unchanged (right eswsl with stent removal) I have reviewed the history and physical and performed a pertinent physical examination on my patient. No changes have occurred unless specified. Time Spent With Patient Time: Total time managing care of this patient today ____ minutes.
--- NOTE | 2022-10-31 08:02 | W.PM.OPN ---
Operative Note Operative Note Date of Service: 10/31/22 Narrative: PreOperative Diagnosis: right Renal stones with stent Post Operative Diagnosis: right Renal stones with stent Procedure: right ESWL with cysto stent removal Surgeon: Dr Javier Anderson Anesthesia: mac/sedation Indications for procedure: The patient understands ESWL may be a staged procedure and subsequent intervention may be required based on imaging after ESWL. Quoted stone clearance rates for a solitary procedure are in the 70-80% range based primarily on stone location. They also understand there is a risk of bleeding to the kidney, infection, damage to adjacent organs, and stone migration following the procedure. - Imaging right proximal stone with stent prior - also stones in right renal kidney Procedure: After informed consent was verified the patient was brought to the operating room and placed in a supine position. Anesthesia was performed per protocol. Safety pause time-out was performed. Imaging was displayed in the room and laterality confirmed. ESWL was performed. The 1st 500 shocks were performed at 60 hertz. These were performed with increasing power. Once maximum power was reached the rate was increased to 180 hertz. A total of 2500 shocks were given. Targeted imaging with ultrasound/fluoroscopy showed stone smudging suggestive of disintegration. at completion of procedure cystoscopy performed and stent removed from right ureter. The patient tolerated the procedure well and was transferred to the recovery area upon completion. Post procedure imaging will be organized. There was no evidence for flank discoloration.
[2022-10-31 08:35] VITALS: BP 90/69; PULSE 80; RESP 18; TEMP 36.6; O2SAT 94
[2022-10-31 08:40] VITALS: BP 118/70
[2022-10-31 08:50] VITALS: BP 123/62; PULSE 74; RESP 18; O2SAT 95
[2022-10-31 09:05] VITALS: BP 131/56; PULSE 69; RESP 16; TEMP 36.1; O2SAT 95
== END 2022-10-31 10:03 | disposition home or self-care (01) ==
PROVIDERS: PCP Hospitalist; Visit Provider Urology
PROC: 0TP98DZ Removal of Intraluminal Device from Ureter, Via Natural or Artificial Opening Endoscopic (ICD-10-PCS; CPT 50590; principal; 2022-10-31 07:30)
DX: N20.0 Calculus of kidney (principal); Z96.0 Presence of urogenital implants; E11.9 Type 2 diabetes mellitus without complications; I10 Essential (primary) hypertension; E78.5 Hyperlipidemia, unspecified; G40.909 Epilepsy, unspecified, not intractable, without status epilepticus; F17.210 Nicotine dependence, cigarettes, uncomplicated; Z86.718 Personal history of other venous thrombosis and embolism; Z88.1 Allergy status to other antibiotic agents; Z79.01 Long term (current) use of anticoagulants; Z79.84 Long term (current) use of oral hypoglycemic drugs; Z79.899 Other long term (current) drug therapy
CPT/HCPCS: 50590; 74018; 82947; J1956; J3010

== ENCOUNTER → 2022-10-31 06:04 | Outpatient (BNV) | payer MEDICARE, MEDICAID, SELFPAY | PROVIDERS: PCP Hospitalist; Visit Provider Urology | DX: N20.0 Calculus of kidney (principal); Z96.0 Presence of urogenital implants | CPT/HCPCS: 50590; 52310 ==

== ENCOUNTER 2022-11-20 09:50 | Outpatient (REF) | payer MEDICARE, MEDICAID, SELFPAY ==
--- NOTE | ~2022-11-20 | US_ITS ---
EXAMINATION: US RETROPERITONEAL LIMITED (RENAL ONLY) CLINICAL INFORMATION: Calculus of kidney. COMPARISON: X-ray abdomen KUB 10/31/2022. CT abdomen and pelvis 09/20/2022. TECHNIQUE: Real-time imaging of the kidneys. FINDINGS: RIGHT KIDNEY: 12.1 x 6.3 x 5.0 cm (SAG x AP x TRV). The kidney is normal in size, contour, and echogenicity. Renal cortical thickness is normal. No calculi or focal parenchymal lesions. There is pelviectasis, without jed hydronephrosis. At the interpolar aspect posteriorly, a 1.1 cm shadowing, nonobstructing calculus is seen. LEFT KIDNEY: 10.6 x 4.8 x 4.6 cm (SAG x AP x TRV). The kidney is normal in size, contour, and echogenicity. Renal cortical thickness is normal. No calculi or focal parenchymal lesions. No hydronephrosis. US/US renal BI IMPRESSION: At the interpolar right kidney, a 1.1 cm nonobstructing calculus is seen. No left renal calculus is seen. No hydronephrosis is noted bilaterally.
== END 2022-11-20 09:51 | disposition home or self-care (01) ==
LOC: HO.US 09:50
PROVIDERS: PCP Hospitalist; Visit Provider Urology
DX: N20.0 Calculus of kidney (principal)
CPT/HCPCS: 76775

== ENCOUNTER 2022-12-13 13:35 | Outpatient (AMB) | payer MEDICARE, MEDICAID, SELFPAY ==
--- NOTE | 2022-12-13 14:07 | MHC.OFFVIS ---
Intake Intake Visit Reasons: 6W US(set) Allergies Penicillins Allergy (Verified 12/13/22 13:34) Unknown Medication List - Last Reconciled 12/13/22 by Javier Anderson MD acetaminophen 650 mg PO Q8H PRN apixaban 5 mg PO BID atorvastatin 20 mg PO BEDTIME carbamazepine ER 100 mg PO BID carbamazepine ER 400 mg PO BID dapagliflozin propanediol 10 mg PO DAILY diclofenac sodium 1% 4 grams topical Q6H docusate sodium 100 mg PO BID gemfibrozil 600 mg PO BID guaifenesin 200 mg PO Q4H PRN lamotrigine 50 mg PO BID levetiracetam (Keppra) 1,000 mg PO BID lidocaine 5% 1 patch topical DAILY PRN lisinopril 20 mg PO DAILY metformin 1,000 mg PO BID metoprolol succinate ER 25 mg PO BID sennosides (senna) 8.6 mg PO DAILY PRN HPI HPI Comments History of Present Illness Details Flavio is a pleasant male. He is a patient Dr. Bo. He seen for the following urologic conditions - nephrolithiasis Telemedicine Evaluation 15 min Consultation DoximRazmir Kayley Video attempted Renal ultrasound Right kidney resolved Scarring present Discussed results Continue surveillance Encourage 64 oz fluid per day Nephrolithiasis Seen in hospital September 2022 Imaging - 10/03 CT right proximal ureteric stone with hydronephrosis, creatinine 1.4. 1.1 cm right posterior renal calcification - 12/03 renal US - posterior calcification in place Intervention - 10/03 stent placed - 11/03 R ESWl with stent removal PFSH Medical History Intracerebral hemorrhage DVT (deep venous thrombosis) Hyperlipidemia ADD (attention deficit disorder) Type 2 diabetes mellitus Hemiparesis HTN (hypertension) Epilepsy Surgical History Hx of cystoscopy Social History Household Members: Other Housing: Other Housing Other:: resides at [facility] Alcohol intake: never Patient Tobacco Use Status: Current everyday Tobacco user Tobacco use type: Cigarette Cigarettes Per Day: 4 Years Smoked: unknown Advance Directives Date on File: 09/26/22 service: No Review of Systems Const All systems reviewed & are unremarkable except as noted in HPI and below Reports no additional complaints Resp Reports no additional complaints GI Reports no additional complaints Reports as per HPI Musc Reports no additional complaints Physical Exam Telemedicine evaluation Appropriate responses Regular breathing rate and rhythm HEENT Head: Yes normal to inspection Ears: hearing grossly normal bilaterally Eyes General: appearance normal, both eyes and all related structures Neck Neck: Yes normal visual inspection Chest Chest palpation & inspection: normal inspection of the chest Resp Effort & Inspection: normal respiratory effort and able to speak in complete sentences Assessment & Plan Assessment & Plan (1) Calcium nephrolithiasis: Code(s): N20.0 - Calculus of kidney Plan Six month follow-up Orders: Orders US renal BI 6 Months N20.0 - Calculus of kidney Patient Instructions: Imaging studies, laboratory and physical exam results were discussed and reviewed in detail. No major barriers to patient understanding were identified. An opportunity to ask questions regarding the treatment plan was provided. All questions were answered. The patient expressed understanding and agreement with the above treatment plan. The patient is aware they should contact our office by phone for worsening of their current condition or the appearance of new urologic symptoms. Compliance is encouraged with any medications and followup testing that is ordered. It is a privilege to participate in the urologic care of your patient. If you have any questions or concerns regarding treatment for the above conditions, or other urologic issues, please do not hesitate to contact me. The office telephone contact is [phone]. This note is constructed using voice recognition software. While every effort has been made to ensure accuracy flame cutting supervisor errors may have been included. Yours sincerely, Dr Javier Anderson MD, [facility] - Urology Providers of Expert, Compassionate Care for the Genitourinary System Telehealth Telehealth Location of provider rendering services: practice address Location of patient: address on file Patient Identification confirmed using: Name, : Yes Telehealth method: video Patient verbally consented to treatment: Yes Patient verbally consented to billing insurance company: Yes Patient informed of any privacy concerns related to visit: Yes Coding Level of Care Code Tele Est Pt Level 3 (96552) Diagnoses Calcium nephrolithiasis N20.0
== END 2022-12-13 14:56 ==
LOC: HO.HUSH 13:35
PROVIDERS: PCP Hospitalist; Visit Provider Urology
DX: N20.0 Calculus of kidney (principal)
CPT/HCPCS: 99024

== ENCOUNTER → 2022-12-13 13:35 | Outpatient (BNVA) | payer MEDICARE, MEDICAID, SELFPAY | PROVIDERS: PCP Hospitalist; Visit Provider Urology | DX: N20.0 Calculus of kidney (principal) | CPT/HCPCS: 99212 ==

== ENCOUNTER 2023-03-04 11:24 | Outpatient (AMB) | payer MEDICARE, MEDICAID, SELFPAY ==
--- NOTE | 2023-03-04 11:29 | MHC.OFFVIS ---
Intake Vital Signs 03/04/23 11:36 Height 5 ft 5 in Weight 175 lb BMI 29.1 BP 112/65 Blood Pressure Location Rt brachial Position Sitting Pulse 85 Intake Visit Reasons: Colonoscopy Screening Intake Note: Flavio presents in the office as a new patient colonoscopy screening. CC: He states he is having the symptoms as he did when he had a kidney stone. He is having all the same symptoms like diarrhea and burning. Allergies Penicillins Allergy (Verified 03/04/23 11:33) Unknown HPI Colonoscopy Screening HPI Details 52 year old? male with past medical history of diabetes, epilepsy, hyperlipidemia, hypertension, intracerebral hemorrhage, left-sided hemiparesis is here today for pre colonoscopy screening.? Patient was sent to us by his PCP.? This is his first colonoscopy screening.? Patient denies any gastrointestinal symptoms in the past or at present.? History of seizure disorder, on Keppra. Patient reports that he has not had a seizure for over a year. Denies any personal or family history of gastrointestinal disease, colon polyps, or cancer.? However patient does report that he will have alternating bowels with constipation and diarrhea. Denies history of difficulty with sedation or anesthesia in the past.? Patient had lithotripsy done few months ago and did well with anesthesia. Negative for history of sleep apnea.? Denies any history of cardiac, renal, pulmonary, or hepatic disease.?? No history of infectious? diseases like hepatitis A, B, C, HIV or tuberculosis.? Patient is on Eliquis. [facility] Medical History Intracerebral hemorrhage DVT (deep venous thrombosis) Hyperlipidemia ADD (attention deficit disorder) Type 2 diabetes mellitus Hemiparesis HTN (hypertension) Epilepsy Surgical History Hx of cystoscopy Social History Household Members: Other Housing: Other Housing Other:: resides at [facility] Alcohol intake: never Patient Tobacco Use Status: Current everyday Tobacco user Tobacco use type: Cigarette Cigarettes Per Day: 4 Years Smoked: unknown Advance Directives Date on File: 09/26/22 service: No Review of Systems Const Denies weight gain and Denies weight loss ENT Reports no additional complaints, Denies dysphagia and Denies odynophagia Card Reports no additional complaints Resp Reports no additional complaints GI Denies abdominal pain, Denies belching, Denies melena, Denies bloating, Denies change in bowel habits, Denies dysphagia, Denies excessive flatus, Denies dyspepsia, Denies heartburn, Denies diarrhea, Reports loose stools, Denies nausea, Denies odynophagia and Denies vomiting Reports no additional complaints Musc Reports no additional complaints Neuro Reports no additional complaints Psych Reports no additional complaints Endo Reports no additional complaints Physical Exam Vital Signs: Last Vital Signs Pulse 85 03/04/23 11:36 BP 112/65 03/04/23 11:36 BMI result Body Mass Index 29.1 Const Other: Left sided hemiparesis, in wheelchair. General: healthy appearing, no acute distress and well developed Nutritional Appearance: well nourished Orientation/consciousness: patient oriented x3 Resp Effort & Inspection: normal respiratory effort, able to speak in complete sentences, no tracheal deviation and symmetric chest movement Auscultation: clear to auscultation bilaterally Cardio Rate: regular rate GI Inspection: Yes normal to inspection and No distended Palpation (GI): Soft to palpation, not firm, nontender and No hepatosplenomegaly present Auscultation: normal bowel sounds General: Yes no CVA tenderness Back/Spine/Pelvis Back: no CVA tenderness Skin General skin exam: elasticity normal, turgor normal and dry skin Neuro General: patient oriented x3 Psych Appearance: grossly normal Mental Status: mental status grossly normal Assessment & Plan Assessment & Plan (1) Screen for colon cancer: Code(s): Z12.11 - Encounter for screening for malignant neoplasm of colon (2) IBS (irritable bowel syndrome): Code(s): K58.9 - Irritable bowel syndrome without diarrhea Qualifiers: Irritable bowel syndrome type: with both diarrhea and constipation Qualified Code(s): K58.2 - Mixed irritable bowel syndrome Plan Patient denies any cardiac or respiratory symptoms. Patient admits to occasional loose stools then constipation. Patient will increase fiber. Script for Citrucel given to patient. The importance of stopping Citrucel minimum 1 week before the procedure stressed with patient and staff member.? Denies any issues with anesthesia in the past.? Denies any history of sleep apnea.? No history infectious diseases in the past or present. Patient is on Eliquis can stop Eliquis 48 hours before the procedure.? No family or personal history of colon cancer or polyps.? Patient denies melena, hematochezia, unintentional weight loss or ribbon like stools.? Discussed at length the pre-procedure,? prep, diet & medications as well as what to expect prior, during and after the procedure.?? Stressed the importance of good bowel prep. ?Recommended the use of Vaseline or Calmoseptine OTC & baby wipes with bowel movements to promote comfort.? ?Patient verbalizes understanding and agrees to plan of care.? He was given the opportunity to ask questions and all questions answered.? We will see him after the procedure.? Patient was accompanied by [facility] staff. All instructions given to patient and [facility] facility staff Medications: New methylcellulose (laxative) (Citrucel) take it with full glass of water 500 mg PO DAILY 90 tabs 2RF K59.00 - Constipation, unspecified bisacodyl (Dulcolax (bisacodyl)) take 4 tabs at noon the day before your colonoscopy 20 mg (4 x 5 mg) PO ONCE 1 day 4 tabs 0RF constipation Z12.11 - Encounter for screening for malignant neoplasm of colon polyethylene glycol 3350 (Miralax) As directed by gastroenterology department at [facility] 238 grams PO ONCE 238 grams 0RF Z12.11 - Encounter for screening for malignant neoplasm of colon Changed From sennosides (senna) 8.6 mg PO DAILY PRN Constipation To sennosides (senna) 8.6 mg PO DAILY 30 tabs 2RF Constipation Coding Level of Care Code New Pt Level 3 (90895) Diagnoses Screen for colon cancer Z12.11 Irritable bowel syndrome with both constipation and diarrhea K58.2 Irritable bowel syndrome type: with both diarrhea and constipation Time Spent (min) 40 Comment 30 minutes spent with patient and additional 10 minutes spent reviewing his records
[2023-03-04 11:36] VITALS: BP 112/65; PULSE 85; BMI 29.1
== END 2023-03-04 12:43 | disposition home or self-care (01) ==
PROVIDERS: PCP Hospitalist; Visit Provider Nurse Practitioner Family
DX: K58.2 Mixed irritable bowel syndrome (principal); Z12.11 Encounter for screening for malignant neoplasm of colon
CPT/HCPCS: 99203

== ENCOUNTER → 2023-03-04 11:24 | Outpatient (BNVA) | payer MEDICARE, MEDICAID, SELFPAY | PROVIDERS: PCP Hospitalist; Visit Provider Nurse Practitioner Family | DX: Z12.11 Encounter for screening for malignant neoplasm of colon (principal); K58.2 Mixed irritable bowel syndrome | CPT/HCPCS: 99202 ==

== ENCOUNTER 2023-06-06 07:54 | Outpatient (REF) | payer MEDICARE, MEDICAID, SELFPAY ==
--- NOTE | ~2023-06-06 | US_ITS ---
EXAMINATION: US RETROPERITONEAL LIMITED (RENAL ONLY) CLINICAL INFORMATION: Calculus of kidney. COMPARISON: Renal ultrasound 11/20/2022. X-ray abdomen KUB 10/31/2022. CT abdomen and pelvis 09/20/2022. TECHNIQUE: Real-time imaging of the kidneys. Technically limited study secondary to the patient being in a wheelchair. FINDINGS: RIGHT KIDNEY: 10.8 x 5.9 x 4.8 cm (SAG x AP x TRV). The kidney is normal in size, contour, and echogenicity. Renal cortical thickness is normal. No calculi or focal parenchymal lesions. No hydronephrosis. 0.8 x 0.4 x 0.9 cm cortical calcification is seen in the mid kidney. There is mild fullness of the renal pelvis, a normal variant. LEFT KIDNEY: 10.4 x 4.8 x 4.0 cm (SAG x AP x TRV). The kidney is normal in size, contour, and echogenicity. Renal cortical thickness is normal. No focal parenchymal lesions or hydronephrosis. 1.1 x 0.2 x 0.5 cm nonobstructing calculus is seen in the lower pole. US/US renal BI IMPRESSION: 1. 1.1 cm nonobstructing calculus in the lower pole of the left kidney. 2. 0.9 cm cortical calcification in the mid right kidney.
== END 2023-06-06 07:55 | disposition home or self-care (01) ==
LOC: HO.US 07:54
PROVIDERS: PCP Hospitalist; Visit Provider Urology
DX: N20.0 Calculus of kidney (principal)
CPT/HCPCS: 76775

== ENCOUNTER 2023-06-20 08:52 | Outpatient (AMB) | payer MEDICARE, MEDICAID, SELFPAY ==
--- NOTE | 2023-06-20 09:13 | MHC.OFFVIS ---
Intake Visit Reasons: follow up/ US(set) Intake Note: Patient is Present for Follow Up Urology Medication: none Antibiotic Allergies: Penicillins Blood Thinners: Apixaban Allergies Penicillins Allergy (Verified 03/04/23 11:33) Unknown Medication List - Last Reconciled 06/20/23 by Javier Anderson MD acetaminophen 650 mg PO Q8H PRN apixaban 5 mg PO BID atorvastatin 40 mg PO BEDTIME bisacodyl (Dulcolax (bisacodyl)) 20 mg (4 x 5 mg) PO ONCE 1 day carbamazepine ER 100 mg PO BID carbamazepine ER 400 mg PO BID dapagliflozin propanediol 10 mg PO DAILY diclofenac sodium 1% 4 grams topical Q6H docusate sodium 100 mg PO BID dulaglutide (Trulicity) 0.75 mg subcut QWEEK gemfibrozil 600 mg PO BID guaifenesin 200 mg PO Q4H PRN lamotrigine 50 mg PO BID levetiracetam (Keppra) 1,000 mg PO BID lidocaine 5% 1 patch topical DAILY PRN lisinopril 20 mg PO DAILY metformin 1,000 mg PO BID methylcellulose (laxative) (Citrucel) 500 mg PO DAILY metoprolol succinate ER 25 mg PO BID polyethylene glycol 3350 (Miralax) 238 grams PO ONCE sennosides (senna) 8.6 mg PO DAILY HPI Comments Details: Flavio is a pleasant male. He is a patient Dr. Bo. He seen for the following urologic conditions - nephrolithiasis Renal ultrasound Stable stone burden Encouraged 64 oz fluid per day Main issue is loose stool currently Does drink a lot of diet soda Recommended increased fiber in decreased diet soda Nephrolithiasis Seen in hospital September 2022 Imaging - 10/03 CT right proximal ureteric stone with hydronephrosis, creatinine 1.4. 1.1 cm right posterior renal calcification - 12/03 renal US - posterior calcification in place - 06/04 renal ultrasound small stone right, 10 mm stone left Intervention - 10/03 stent placed - 11/03 R ESWl with stent removal [facility] Medical History Intracerebral hemorrhage DVT (deep venous thrombosis) Hyperlipidemia ADD (attention deficit disorder) Type 2 diabetes mellitus Hemiparesis HTN (hypertension) Epilepsy Surgical History Hx of cystoscopy Social History Household Members: Other Housing: Other Housing Other:: resides at [facility] Alcohol intake: never Patient Tobacco Use Status: Current everyday Tobacco user Tobacco use type: Cigarette Cigarettes Per Day: 4 Years Smoked: unknown Advance Directives Date on File: 09/26/22 service: No Review of Systems Const Denies chills and Denies fever(s) Card Reports no additional complaints and Denies syncope Resp Denies cough GI Denies abdominal pain and Denies heartburn Reports as per HPI and Denies change in libido Neuro Denies syncope Psych Denies change in libido Endo Denies change in libido Physical Exam Const General: cooperative, healthy appearing, comfortable and no acute distress Orientation/consciousness: patient oriented x3 HEENT Face and sinus: Yes normal facial exam Mouth: moist mucous membranes Neck Neck: Yes normal visual inspection, Yes full ROM and Yes trachea midline Chest Chest palpation & inspection: normal inspection of the chest Resp Effort & Inspection: normal respiratory effort, able to speak in complete sentences and no respiratory distress GI Inspection: Yes normal to inspection Back/Spine/Pelvis Cervical Spine: normal cervical lordosis Thoracic/Lumbar Spine: thoracic and lumbar spine normal to inspection Skin General skin exam: no rashes or lesions noted Neuro General: patient oriented x3, gait normal, tone normal and moves all extremities Extrem General: Yes normal to inspection and Yes capillary refill normal Assessment & Plan Assessment & Plan (1) Calcium nephrolithiasis: Code(s): N20.0 - Calculus of kidney Category: Medical Plan Twelve month follow-up renal ultrasound Orders: Orders US renal BI 12 Months N20.0 - Calculus of kidney Patient Instructions: Imaging studies, laboratory and physical exam results were discussed and reviewed in detail. No major barriers to patient understanding were identified. An opportunity to ask questions regarding the treatment plan was provided. All questions were answered. The patient expressed understanding and agreement with the above treatment plan. The patient is aware they should contact our office by phone for worsening of their current condition or the appearance of new urologic symptoms. Compliance is encouraged with any medications and followup testing that is ordered. It is a privilege to participate in the urologic care of your patient. If you have any questions or concerns regarding treatment for the above conditions, or other urologic issues, please do not hesitate to contact me. The office telephone contact is [phone]. This note is constructed using voice recognition software. While every effort has been made to ensure accuracy social media designer errors may have been included. Yours sincerely, Dr Javier Anderson MD, [facility] - Urology Providers of Expert, Compassionate Care for the Genitourinary System Coding Level of Care Code Est Pt Level 3 (39826) Diagnoses Calcium nephrolithiasis N20.0
== END 2023-06-20 09:48 | disposition home or self-care (01) ==
PROVIDERS: PCP Hospitalist; Visit Provider Urology
DX: N20.0 Calculus of kidney (principal)
CPT/HCPCS: 99213

== ENCOUNTER → 2023-06-20 08:52 | Outpatient (BNVA) | payer MEDICARE, MEDICAID, SELFPAY | PROVIDERS: PCP Hospitalist; Visit Provider Urology | DX: N20.0 Calculus of kidney (principal) | CPT/HCPCS: 99212 ==

== ENCOUNTER 2023-06-26 08:13 | Day surgery (SDC) | payer MEDICARE, MEDICAID, SELFPAY ==
[2023-06-25 09:30] VITALS: BMI 29.1
--- NOTE | 2023-06-25 09:32 | HO.ANESPROP2 ---
Documented by User: Birgit Andrews NP 06/25/23 09:33 HPI - Anesthesia Eval Consult details Narrative: 52yo M for Colonoscopy Eliquis for DVT [facility] resident Anesthesia Pre-Procedure Meds Is the patient on any of the following meds?: GLP1/DPP4 and SGLT2 Inhib PMFSH Active Problems Active Problems: All Active Problems Calcium nephrolithiasis (Acute) Past Medical History Medical History Intracerebral hemorrhage DVT (deep venous thrombosis) Hyperlipidemia ADD (attention deficit disorder) Type 2 diabetes mellitus Hemiparesis HTN (hypertension) Epilepsy Surgical History Surgical History Hx of cystoscopy History of Problems with Anesthesia: No Social History Social History Household Members: Other Housing: Other Housing Other:: resides at [facility] Alcohol intake: never Patient Tobacco Use Status: Never used Tobacco Tobacco use type: Cigarette Cigarettes Per Day: 4 Years Smoked: unknown Use of substances other than those prescribed or required for medical reasons: No Are you DNR?: No Advance Directives: No Advance Directives Information Provided: Yes Advance Directives Date on File: 09/26/22 service: No Meds Allergies Allergy/AdvReac Type Severity Reaction Status Date / Time Penicillins Allergy Unknown Verified 03/04/23 11:33 Home Medications ?Medication ?Instructions ?Recorded ?Confirmed ?Last Taken ?Type acetaminophen 325 mg tablet 650 mg PO Q8H PRN fever/pain 09/20/22 06/20/23 Unknown History apixaban 5 mg tablet 5 mg PO BID 09/20/22 06/20/23 10/26/22 History carbamazepine 100 mg 100 mg PO BID 09/20/22 06/20/23 10/31/22 History capsule,extended release [id number] carbamazepine 400 mg 400 mg PO BID 09/20/22 06/20/23 10/31/22 History tablet,extended release,12 hr diclofenac sodium 1 % topical gel 4 g topical Q6H pain 09/20/22 06/20/23 Unknown History docusate sodium 100 mg tablet 100 mg PO BID 09/20/22 06/20/23 Unknown History guaifenesin 100 mg/5 mL oral liquid 200 mg PO Q4H PRN Cough 09/20/22 06/20/23 Unknown History lamotrigine 25 mg tablet 50 mg PO BID 09/20/22 06/20/23 Unknown History levetiracetam 1,000 mg tablet 1,000 mg PO BID 09/20/22 06/20/23 10/31/22 History (Keppra) lidocaine 5 % topical patch 1 patch topical DAILY PRN Back Pain 09/20/22 06/20/23 Unknown History lisinopril 20 mg tablet 20 mg PO DAILY 09/20/22 06/20/23 Unknown History metformin 1,000 mg tablet 1,000 mg PO BID 09/20/22 06/20/23 Unknown History metoprolol succinate 25 mg 25 mg PO BID 09/20/22 06/20/23 Unknown History tablet,extended release 24 hr atorvastatin 20 mg tablet 40 mg PO BEDTIME 03/04/23 06/20/23 Unknown History dapagliflozin propanediol 10 mg 10 mg PO DAILY 03/04/23 06/20/23 Unknown History tablet dulaglutide 0.75 mg/0.5 mL 0.75 mg subcut QWEEK 03/04/23 06/20/23 Unknown History subcutaneous pen injector (Trulicity) gemfibrozil 600 mg tablet 600 mg PO BID 03/04/23 06/20/23 Unknown History Exam Height,Weight and Vital Signs: Height 5 ft 5 in Weight 79.379 kg Assessment and Plan Assessment Anesthesia Assessment: Chart Reviewed Final Anesthetic Review History of Problems with Anesthesia: No Documented by User: Rylee Donnelly MD 06/26/23 09:33 [facility] Past Medical History Medical History Intracerebral hemorrhage DVT (deep venous thrombosis) Hyperlipidemia ADD (attention deficit disorder) Type 2 diabetes mellitus Hemiparesis HTN (hypertension) Epilepsy Family History Family history of problems with anesthesia: No Surgical History Surgical History Hx of cystoscopy Social History Social History Household Members: Other Housing: Other Housing Other:: resides at [facility] Alcohol intake: never Patient Tobacco Use Status: Never used Tobacco Tobacco use type: Cigarette Cigarettes Per Day: 4 Years Smoked: unknown Use of substances other than those prescribed or required for medical reasons: No Are you DNR?: No Advance Directives: No Advance Directives Information Provided: Yes Advance Directives Date on File: 09/26/22 service: No Meds Allergies Allergy/AdvReac Type Severity Reaction Status Date / Time Penicillins Allergy Unknown Verified 03/04/23 11:33 Home Medications ?Medication ?Instructions ?Recorded ?Confirmed ?Last Taken ?Type acetaminophen 325 mg tablet 650 mg PO Q8H PRN fever/pain 09/20/22 06/20/23 Unknown History apixaban 5 mg tablet 5 mg PO BID 09/20/22 06/20/23 10/26/22 History carbamazepine 100 mg 100 mg PO BID 09/20/22 06/20/23 10/31/22 History capsule,extended release [id number] carbamazepine 400 mg 400 mg PO BID 09/20/22 06/20/23 10/31/22 History tablet,extended release,12 hr diclofenac sodium 1 % topical gel 4 g topical Q6H pain 09/20/22 06/20/23 Unknown History docusate sodium 100 mg tablet 100 mg PO BID 09/20/22 06/20/23 Unknown History guaifenesin 100 mg/5 mL oral liquid 200 mg PO Q4H PRN Cough 09/20/22 06/20/23 Unknown History lamotrigine 25 mg tablet 50 mg PO BID 09/20/22 06/20/23 Unknown History levetiracetam 1,000 mg tablet 1,000 mg PO BID 09/20/22 06/20/23 10/31/22 History (Kekayla) lidocaine 5 % topical patch 1 patch topical DAILY PRN Back Pain 09/20/22 06/20/23 Unknown History lisinopril 20 mg tablet 20 mg PO DAILY 09/20/22 06/20/23 Unknown History metformin 1,000 mg tablet 1,000 mg PO BID 09/20/22 06/20/23 Unknown History metoprolol succinate 25 mg 25 mg PO BID 09/20/22 06/20/23 Unknown History tablet,extended release 24 hr atorvastatin 20 mg tablet 40 mg PO BEDTIME 03/04/23 06/20/23 Unknown History dapagliflozin propanediol 10 mg 10 mg PO DAILY 03/04/23 06/20/23 Unknown History tablet dulaglutide 0.75 mg/0.5 mL 0.75 mg subcut QWEEK 03/04/23 06/20/23 Unknown History subcutaneous pen injector (Trulicity) gemfibrozil 600 mg tablet 600 mg PO BID 03/04/23 06/20/23 Unknown History Exam Airway Mallampati Class: II (poor dentition, missing multiple teeth, denies anything loose) TM Dist: >3cm Neck ROM: Full Heart: rrr Lungs: cta Assessment and Plan Assessment Anesthesia Assessment: Anesthesia Plan Discussed Final Anesthetic Review Family History of Problems with Anesthesia: No NPO: Yes ASA Class: III Final Preanesthetic Review: No Changes in Pt Med Stat, Meds/Allgs Chart Reviewed and Consent Obtained/Reviewed Patient Risk: Intermediate Procedure Risk: Low Anesthetic Plan Anesthetic Plan: MAC: Disposition: Standard PACU
[2023-06-26 09:22] VITALS: BP 137/78; PULSE 66; RESP 16; TEMP 36.3; O2SAT 96
--- NOTE | 2023-06-26 09:28 | P.HPSUR_ITS ---
Pre-Procedural Eval Section A - 24 Hr Update-Section A only Date of Service: 06/26/23 Section B - Complete if H&P > 30 days Chief Complaint: Encounter for screening for malignant neoplasm of Relevant Family History (Specify if Yes): No Relevant Social History: Tobacco Use Present Medications: see Short Stay Collaborative assessment Medical History: Significant History (Intracerebral hemorrhage DVT (deep venous thrombosis) Hyperlipidemia ADD (attention deficit disorder) Type 2 diabetes mellitus Hemiparesis HTN (hypertension) Epilepsy) History of Previous Operations: Relevant previous surgery/procedure and date(s) (Hx of cystoscopy) Allergies: Allergies Allergy/AdvReac Type Severity Reaction Status Date / Time Penicillins Allergy Unknown Verified 03/04/23 11:33 Review of Systems Sugical H&P ROS: Negative: Constitution, Cardiovascular, Respiratory, Ne urological, Psychiatric, Hem-Onc, Allergic/Immunologic, Gastrointestinal, Genitourinary, Musculoskeletal, Integumentary, Endocrine and Eyes/Ears/Nose/Throat Exam Surgical H&P Exam: Normal: HEENT, Normal: Heart, Normal: Lungs, Normal: Extremities, Normal: Abdomen and Normal: Skin and Significant Findings: Neurological (in wheelchair) Plan Diagnosis/Plan: Unchanged I have reviewed the history and physical and performed a pertinent physical examination on my patient. No changes have occurred unless specified. Time Spent With Patient Time: Total time managing care of this patient today ____ minutes.
[2023-06-26 09:35] LABS: Glucose, Whole Blood 133 mg/dL (60-115)
[2023-06-26] MEDS: Lactated Ringers 1,000 ML 100 ML IVCONT (09:35)
--- NOTE | 2023-06-26 09:44 | HO.OPN-COLON ---
Colonoscopy Operative Note Operative Note Date of Service: 06/26/23 Narrative: Operative Information Procedure Description: Colonoscopy Indication: screening Anesthesia: MAC COLONOSCOPY Instrument: Olympus variable stiffness pediatric scope 190L Colonoscopy Monitoring: Vital signs and clinical assessment, continuous EKG monitoring, Pulse oximetry, Carbon Dioxide monitoring and blood pressure monitoring were done throughout the procedure. Colon withdrawal time was 10 minutes. Procedure: The patient was placed in the left lateral decubitis position and pre-procedure medications were administered. After a digital rectal examination of the ano-rectum, the video colonoscope was inserted into the rectum and advanced through the colon to the cecum/TI. The colonoscope was slowly withdrawn in a retrograde panoramic fashion and the colon mucosa was carefully examined including a retroflexed view of the rectum. Findings and interventions are described below. Procedure Difficulty: easy Findings: Terminal Ileum-normal Cecum:normal Ascending Colon: normal Transverse Colon - 5-7 mm sessile polyp removed with cold snare Descending Colon:normal Sigmoid Colon: normal Rectum: Retroflexion with small internal hemorrhoids seen, grade I Anorectum - normal Intervention: cold snare Colon preparation: [place] Bowel Preparation Scale Right colon; 1-2 Transverse colon: 1-2 Left colon; 2 (0 = Unprepared colon segment with mucosa not seen due to solid stool that cannot be cleared. 1 = Portion of mucosa of the colon segment seen, but other areas of the colon segment not well seen due to staining, residual stool and/or opaque liquid. 2 = Minor amount of residual staining, small fragments of stool and/or opaque liquid, but mucosa of colon segment seen well. 3 = Entire mucosa of colon segment seen well with no residual staining, small fragments of stool or opaque liquid) Impression and Post Procedure Diagnosis: colon polyp internal hemorrhoids Plan: High fiber diet leaflet Avoid straining at stool, epsom salts and sitz bath, anusol supps or cream Repeat Colonoscopy in 1 year due to fair prep or earlier if clinically indicated can restart apixiban tomorrow Above findings were reviewed with the patient and relevant handouts were provided if indicated.
[2023-06-26 10:05] VITALS: BP 105/59; PULSE 74; RESP 16; TEMP 36.2; O2SAT 98
[2023-06-26 10:20] VITALS: BP 129/69; PULSE 73; RESP 18; TEMP 36.1; O2SAT 97
== END 2023-06-26 10:59 | disposition home or self-care (01) ==
PROVIDERS: PCP Hospitalist; Visit Provider Internal Medicine Gastroenterology
PROC: 0DJD8ZZ Inspection of Lower Intestinal Tract, Via Natural or Artificial Opening Endoscopic (ICD-10-PCS; CPT 45378; principal; 2023-06-26 10:10)
DX: Z12.11 Encounter for screening for malignant neoplasm of colon (principal); D12.3 Benign neoplasm of transverse colon; K64.0 First degree hemorrhoids; I10 Essential (primary) hypertension; E11.9 Type 2 diabetes mellitus without complications; G40.909 Epilepsy, unspecified, not intractable, without status epilepticus; G81.94 Hemiplegia, unspecified affecting left nondominant side; Z86.718 Personal history of other venous thrombosis and embolism
CPT/HCPCS: 45385; 82947; 88305; J2704

== ENCOUNTER → 2023-06-26 08:13 | Outpatient (BNV) | payer MEDICARE, MEDICAID, SELFPAY | PROVIDERS: PCP Hospitalist; Visit Provider Internal Medicine Gastroenterology | DX: Z12.11 Encounter for screening for malignant neoplasm of colon (principal); D12.3 Benign neoplasm of transverse colon; K64.0 First degree hemorrhoids | CPT/HCPCS: 45385 ==

== ENCOUNTER 2023-07-17 08:51 | Outpatient (AMB) | payer MEDICARE, SELFPAY ==
--- NOTE | 2023-07-17 09:02 | MHC.OFFVIS ---
Vital Signs 07/17/23 09:10 Height 5 ft 5 in Weight 170 lb BMI 28.3 BP 128/72 Blood Pressure Location Rt brachial Position Sitting Pulse 76 Pulse Source Pulse Oximeter Pulse Oximetry (%) 97 Oxygen Delivery Method Room Air Intake Visit Reasons: S/P [place]; Dr. Atwood Intake Note: Flavio presents in office today for post op FUV (colo sp) CC; Pt reports that he has remained stable after colo sp. Pt is here strictly for discussion of results. Agency Sales Representative Required: No Allergies Penicillins Allergy (Verified 03/04/23 11:33) Unknown HPI HPI S/P [place]; Dr. Atwood: Details: LAST VISIT Screen for colon cancer IBS (irritable bowel syndrome) Plan Patient denies any cardiac or respiratory symptoms. Patient admits to occasional loose stools then constipation. Patient will increase fiber. Script for Citrucel given to patient. The importance of stopping Citrucel minimum 1 week before the procedure stressed with patient and staff member.? Denies any issues with anesthesia in the past.? Denies any history of sleep apnea.? No history infectious diseases in the past or present. Patient is on Eliquis can stop Eliquis 48 hours before the procedure.? No family or personal history of colon cancer or polyps.? Patient denies melena, hematochezia, unintentional weight loss or ribbon like stools.? Discussed at length the pre-procedure,? prep, diet & medications as well as what to expect prior, during and after the procedure.?? Stressed the importance of good bowel prep. ?Recommended the use of Vaseline or Calmoseptine OTC & baby wipes with bowel movements to promote comfort.? ?Patient verbalizes understanding and agrees to plan of care.? He was given the opportunity to ask questions and all questions answered.? We will see him after the procedure.? Patient was accompanied by [facility] staff. All instructions given to patient and [facility] facility staff Medications New methylcellulose (laxative) (Citrucel) take it with full glass of water 500 mg PO DAILY 90 tabs 2RF K59.00 bisacodyl (Dulcolax (bisacodyl)) take 4 tabs at noon the day before your colonoscopy 20 mg (4 x 5 mg) PO ONCE 1 day 4 tabs 0RF constipation Z12.11 polyethylene glycol 3350 (Miralax) As directed by gastroenterology department at [facility] 238 grams PO ONCE 238 grams 0RF Z12.11 COLONOSCOPY Findings: Terminal Ileum-normal Cecum:normal Ascending Colon: normal Transverse Colon - 5-7 mm sessile polyp removed with cold snare Descending Colon:normal Sigmoid Colon: normal Rectum: Retroflexion with small internal hemorrhoids seen, grade I Anorectum - normal Intervention: cold snare Colon preparation: [place] Bowel Preparation Scale Right colon; 1-2 Transverse colon: 1-2 Left colon; 2 (0 = Unprepared colon segment with mucosa not seen due to solid stool that cannot be cleared. 1 = Portion of mucosa of the colon segment seen, but other areas of the colon segment not well seen due to staining, residual stool and/or opaque liquid. 2 = Minor amount of residual staining, small fragments of stool and/or opaque liquid, but mucosa of colon segment seen well. 3 = Entire mucosa of colon segment seen well with no residual staining, small fragments of stool or opaque liquid) Impression and Post Procedure Diagnosis: colon polyp internal hemorrhoids Plan: High fiber diet leaflet Avoid straining at stool, epsom salts and sitz bath, anusol supps or cream Repeat Colonoscopy in 1 year due to fair prep or earlier if clinically indicated can restart apixiban tomorrow PATHOLOGY RESULTS Diagnosis Colon, transverse, polypectomy: Tubular adenoma; negative for high-grade dysplasia or carcinoma TODAY'S VISIT Patient is here today for follow-up and to discuss colonoscopy results. Patient was found to have 1 polyp, tubular adenoma without high-grade dysplasia or carcinoma. Patient had suboptimal prep and will need to repeat colonoscopy in 1 year. Patient reports that he is moving his bowels better now that he is taking senna every day. Patient reports that he took half of the prep earlier and then the 2nd prep the staff gave it to him later at night and he refused to drink it. Patient should have Dulcolax starting 5 days before the procedure with 2 days of clear liquids. Patient denies any issues after the procedure. No issues with anesthesia. Denies melena, hematochezia. [facility] Medical History (Updated 07/17/23 @ 09:[address] [facility]) Tubular adenoma of colon Intracerebral hemorrhage DVT (deep venous thrombosis) Hyperlipidemia ADD (attention deficit disorder) Type 2 diabetes mellitus Hemiparesis HTN (hypertension) Epilepsy Surgical History Hx of colonoscopy Hx of cystoscopy Social History Household Members: Other Housing: Other Housing Other:: resides at [facility] Alcohol intake: never Patient Tobacco Use Status: Never used Tobacco Tobacco use type: Cigarette Cigarettes Per Day: 4 Years Smoked: unknown Advance Directives Date on File: 09/26/22 service: No Review of Systems Const Denies weight gain and Denies weight loss ENT Reports no additional complaints, Denies dysphagia and Denies odynophagia Card Reports no additional complaints Resp Reports no additional complaints GI Denies abdominal pain, Denies belching, Denies melena, Denies bloating, Denies change in bowel habits, Denies dysphagia, Denies excessive flatus, Denies dyspepsia, Denies heartburn, Denies diarrhea, Reports loose stools, Denies nausea, Denies odynophagia and Denies vomiting Reports no additional complaints Musc Reports no additional complaints Neuro Reports no additional complaints Psych Reports no additional complaints Endo Reports no additional complaints Physical Exam Vital Signs: Last Vital Signs Pulse 76 07/17/23 09:10 BP 128/72 07/17/23 09:10 Pulse Ox 97 07/17/23 09:10 Oxygen Delivery Method Room Air 07/17/23 09:10 BMI result Body Mass Index 28.3 Const Other: Left sided hemiparesis, in wheelchair. General: healthy appearing, no acute distress and well developed Nutritional Appearance: well nourished Orientation/consciousness: patient oriented x3 Resp Effort & Inspection: normal respiratory effort, able to speak in complete sentences, no tracheal deviation and symmetric chest movement Auscultation: clear to auscultation bilaterally Cardio Rate: regular rate GI Inspection: Yes normal to inspection and No distended Palpation (GI): Soft to palpation, not firm, nontender and No hepatosplenomegaly present Auscultation: normal bowel sounds General: Yes no CVA tenderness Back/Spine/Pelvis Back: no CVA tenderness Skin General skin exam: elasticity normal, turgor normal and dry skin Neuro General: patient oriented x3 Psych Appearance: grossly normal Mental Status: mental status grossly normal Assessment & Plan Assessment & Plan (1) Tubular adenoma of colon: Code(s): D12.6 - Benign neoplasm of colon, unspecified Category: Medical (2) Status post colonoscopy: Code(s): Z98.890 - Other specified postprocedural states Plan Tubular adenoma without high-grade dysplasia or carcinoma found. Suboptimal prep and colonoscopy will need to be repeated in 1 year. Patient will return in 8-9 months to discuss going for colonoscopy again. Patient will return if he will experience any GI concerning symptoms. Both patient and staff are agreeable to plan of care and verbalizes understanding of instructions. They were given the opportunity to ask questions and all questions answered. Thank you for allowing me to participate in his care Coding Level of Care Code Est Pt Level 3 (58422) Diagnoses Tubular adenoma of colon D12.6 Status post colonoscopy Z98.890 Time Spent (min) 30 Comment 20 minutes spent with patient and additional 10 minutes spent reviewing his records
[2023-07-17 09:10] VITALS: BP 128/72; PULSE 76; O2SAT 97; BMI 28.3
== END 2023-07-17 09:29 | disposition home or self-care (01) ==
PROVIDERS: PCP Hospitalist; Visit Provider Nurse Practitioner Family
DX: D12.6 Benign neoplasm of colon, unspecified (principal); Z98.890 Other specified postprocedural states
CPT/HCPCS: 99213

== ENCOUNTER → 2023-07-17 08:51 | Outpatient (BNVA) | payer MEDICARE, MEDICAID, SELFPAY | PROVIDERS: PCP Hospitalist; Visit Provider Nurse Practitioner Family | DX: D12.6 Benign neoplasm of colon, unspecified (principal); Z98.890 Other specified postprocedural states | CPT/HCPCS: 99212 ==

== ENCOUNTER → 2024-03-18 09:01 | Outpatient (BNVA) | payer MEDICARE, MEDICAID, SELFPAY | PROVIDERS: PCP Hospitalist; Visit Provider Nurse Practitioner Family | DX: Z12.11 Encounter for screening for malignant neoplasm of colon (principal); D12.6 Benign neoplasm of colon, unspecified | CPT/HCPCS: 99212 ==

== ENCOUNTER 2024-05-26 06:33 | Day surgery (SDC) | payer MEDICARE, MEDICAID, SELFPAY ==
--- OUTSIDE RECORDS SUMMARY | 2024-05-11 11:17 | XMS_ITS | Encounter Summary ---
Author Organization [facility] Address [address] [place] [phone] Care Team Providers Care Display Carver Name Role Phone Simon Arredondo Primary Care Provider Encounter Details Date Type Department Care Team (Late st Contact Info) Description 03/31/2024 Lab Requisition [facility] - Main Lab [address] [place] [address] Prince Bo MD [address] [place] [address] [address] [place], [place] Other prison (current) drug therapy Social History Tobacco Use Types Packs/Day Years Used Date Smoking Tobacco: Never Assessed Sex and Gender Information Value Date Recorded Sex Assigned at Not on file Legal Sex Male 1:00 PM EDT Gender Identity Not on file Sexual Orientation Not on file documented as of this encounter Plan of Treatment Not on file documented as of this encounter Visit Diagnoses Diagnosis Other prison (current) drug therapy documented in this encounter Care Teams Display Carver Relationship Specialty Start Date End Date Simon Arredondo PA 299 [facility] [address] [place], [place] [id number] PCP - General Primary Care 03/31/24 documented as of this encounter
--- OUTSIDE RECORDS SUMMARY | 2024-05-11 11:17 | XMS_ITS | Encounter Summary ---
Author Organization [facility] Address [address] [place] [phone] Care Team Providers Care Food Safety Coordinator Name Role Phone Simon Arredondo Primary Care Provider [phone] Encounter Details Date Type Department Care Team (Late st Contact Info) Description 03/04/2024 Lab Requisition [facility] - Main Lab [address] [facility] [place] [address] Prince Bo MD [address] [place] [address] [address] [place], [place] Encounter for screening for malignant neoplasm of prostate; Localization-related (focal) (partial) idiopathic epilepsy and epileptic syndromes with seizures of localized onset, not intractable, without status epilepticus (CMS/HCC) Social History Tobacco Use Types Packs/Day Years Used Date Smoking Tobacco: Never Assessed Sex and Gender Information Value Date Recorded Sex Assigned at Not on file Legal Sex Male 1:00 PM EDT Gender Identity Not on file Sexual Orientation Not on file documented as of this encounter Plan of Treatment Not on file documented as of this encounter Procedures Procedure Name Priority Date/Time Associated Diagnosis Comments PROSTATE SPECIFIC ANTIGEN SCREEN Routine 03/04/2024 2:10 PM EST Localization-relate d (focal) (partial) idiopathic epilepsy and epileptic syndromes with seizures of localized onset, not intractable, without status epilepticus (CMS/HCC) Encounter for screening for malignant neoplasm of prostate SST - GOLD Routine 03/04/2024 2:10 PM EST Localization-relate d (focal) (partial) idiopathic epilepsy and epileptic syndromes with seizures of localized onset, not intractable, without status epilepticus (CMS/HCC) Encounter for screening for malignant neoplasm of prostate TESTOSTERONE FREE, BIOAVAILABLE AND TOTAL Routine 03/04/2024 2:10 PM EST Localization-relate d (focal) (partial) idiopathic epilepsy and epileptic syndromes with seizures of localized onset, not intractable, without status epilepticus (CMS/HCC) Encounter for screening for malignant neoplasm of prostate LEVETIRACETAM LEVEL Routine 03/04/2024 2 :10 PM EST Localization-relate d (focal) (partial) idiopathic epilepsy and epileptic syndromes with seizures of localized onset, not intractable, without status epilepticus (CMS/HCC) Encounter for screening for malignant neoplasm of prostate CARBAMAZEPINE LEVEL, TOTAL Routine 03/04/2024 2:10 PM EST Localization-relate d (focal) (partial) idiopathic epilepsy and epileptic syndromes with seizures of localized onset, not intractable, without status epilepticus (CMS/HCC) Encounter for screening for malignant neoplasm of prostate documented in this encounter Results * SST tube (03/04/2024 2:10 PM EST) Extra Tube Hold for add-ons. 03/07/2024 9:01 PM EST [facility] Comment:Auto resulted. Blood Venous blood specimen / Unknown 03/04/2024 2:10 PM EST 03/04/2024 6:37 PM EST us Prince Bo MD LAB BLOOD ORDERABLES Final Resul t [facility] [address] [place] [address], * Levetiracetam level (03/04/2024 2:10 PM EST) Levetiracetam 33.1 3.0 - 60.0 ug/mL 03/07/2024 9:13 AM EST [facility] Comment: Steady state trough serum or plasma levels following doses of 1000 to 3000 mg/Day: ??3 to 37 ug/mL. The same dosage regimen will typically result in peak levels of 10 to 60 ug/mL, at approximately 1.5 hours post dose. If applicable, any drug confirmation testing reported here was developed and the performance characteristics determined by [facility]. This confirmation testing has not been cleared or approved by the FDA. The laboratory is regulated under CLIA as qualified to perform high-complexity testing. This test is used for patient testing purposes. It should not be regarded as investigational or for research. Test performed at [facility], [address] , [place], [place] ??[address] ? [phone] Nini Daniels MD, PhD - Sewage Screen Operator Blood Venous blood specimen / Unknown 03/04/2024 2:10 PM EST 03/04/2024 6:37 PM EST us Prince Bo MD LAB BLOOD ORDERABLES Final Resul t [facility] [address] [place] [address] * (ABNORMAL) Carbamazepine level, total (03/04/2024 2:10 PM EST) Carbamazepine Level 13.0(HH) 8.0 - 12.0 mcg/mL LAB CHEMISTRY METHOD 03/04/2024 8:36 PM EST [facility] Blood Venous blood specimen / Unknown 03/04/2024 2:10 PM EST 03/04/2024 6:37 PM EST us Prince Bo MD LAB BLOOD ORDERABLES Final Resul t Performing Organization Address City/[facility]/ZIP Co de Phone Number [facility] [address] [place] [address], * Prostate specific antigen screen (03/04/2024 2:10 PM EST) PSA 1.70 0.00 - 4.00 ng/mL LAB CHEMISTRY METHOD 03/04/2024 8:31 PM EST [facility] Blood Venous blood specimen / Unknown 03/04/2024 2:10 PM EST 03/04/2024 6:37 PM EST Narrative [facility] - 03/04/2024 8:31 PM EST The Siemens Advia Centaur Chemiluminescent Immunoassay is used. Results obtained with different assay methods or kits cannot be used interchangeably. Results cannot be interpreted as absolute evidence of the presence or absence of malignant disease. us Prince Bo MD LAB BLOOD ORDERABLES Final Resul t [facility] [address] [place] [address], [place] [phone] * (ABNORMAL) Testosterone free, bioavailable and total (03/04/2024 2:10 PM EST) Testosterone 142(L) 229 - 902 ng/dL LAB CHEMISTRY METHOD 03/04/2024 8:31 PM EST [facility] Testosterone, Free 3.2(L) 4.6 - 22.4 ng/dL LAB CHEMISTRY METHOD 03/04/2024 8:31 PM EST [facility] Testosterone, Bioavailable 78(L) 110 - 575 ng/dL LAB CHEMISTRY METHOD 03/04/2024 8:31 PM EST [facility] Sex Hormone Binding 22.6 See Comment nmol/L LAB CHEMISTRY METHOD 03/04/2024 8:31 PM EST [facility] Comment: FEMALES: ??pre-menopausal ?? 10.8 - >180 ??post-menopausal ??23.2 - 159.1 MALES: ?? 21-49 years ? 14.6 - 94.6 ?? 50-89 years ? 21.6 - 113.1 CHILDREN: ??No established reference range Over the counter supplements containing high doses of biotin may interfere with this assay. ??If interference is suspected, patients should be retested after refraining from biotin supplements for 72 hours. Albumin 4.5 3.2 - 5.0 g/dL LAB CHEMISTRY METHOD 03/04/2024 8:31 PM EST [facility] Blood Venous blood specimen / Unknown 03/04/2024 2:10 PM EST 03/04/2024 6:37 PM EST us Prince Bo MD LAB BLOOD ORDERABLES Final Resul t [facility] [address] [place] [address], documented in this encounter Visit Diagnoses Diagnosis Encounter for screening for malignant neoplasm of prostate Localization-related (focal) (partial) idiopathic epilepsy and epileptic syndromes with seizures of localized onset, not intractable, without status epilepticus documented in this encounter Care Teams Food Safety Coordinator Relationship Specialty Start Date End Date Simon Arredondo PA [address] [address] PCP - General Primary Care 03/31/24 documented as of this encounter
--- OUTSIDE RECORDS SUMMARY | 2024-05-11 11:17 | XMS_ITS | Encounter Summary ---
Author Organization [facility] Address [address] [place] [phone] Care Team Providers Care Auditor Name Role Phone Simon Arredondo Primary Care Provider [phone] Encounter Details Date Type Department Care Team (Late st Contact Info) Description 03/13/2024 Lab Requisition [facility] - Main Lab 299 [facility] [place] [address] Prince Bo MD [address] [place] [address] [address] [place], [place] Localization-related (focal) (partial) idiopathic epilepsy and epileptic [...] Procedure Name Priority Date/Time Associated Diagnosis Comments CARBAMAZEPINE LEVEL, TOTAL Routine 03/13/2024 7:10 AM EST Localization-relate d (focal) (partial) idiopathic epilepsy and epileptic syndromes with seizures of localized onset, not intractable, without status epilepticus (CMS/HCC) documented in this encounter Results * Carbamazepine level, total (03/13/2024 7:10 AM EST) Carbamazepine Level 9.2 8.0 - 12.0 mcg/mL LAB CHEMISTRY METHOD 03/13/2024 8:[address] [facility] Blood Venous blood specimen / Unknown 03/13/2024 7:10 AM EST 03/13/2024 8:12 AM EST us Prince Bo MD LAB BLOOD ORDERABLES Final Resul t [facility] LAB [address] [place] [address], documented in this encounter Visit Diagnoses Diagnosis Localization-related (focal) (partial) idiopathic epilepsy and epileptic syndromes with seizures of localized onset, not intractable, without status epilepticus documented in this encounter Care Teams Auditor Relationship Specialty Start Date End Date Simon Arredondo PA [address] [address] PCP - General Primary Care 03/31/24 documented as of this encounter
--- OUTSIDE RECORDS SUMMARY | 2024-05-11 11:17 | XMS_ITS | Clinical Summary ---
Author Organization [address] Address [address] [place] [address] Phone Care Team Providers Care Shooter'S Helper Name Role Phone Simon Arredondo Primary Care Provider [phone] Encounters Date Type Department Care Team Description 04/02/2024 Lab Requisition [facility] [address] [place] [phone] Prince Bo MD oysterman (current) use of anticoagulants 03/31/2024 Lab Requisition [facility] [address] [place] [phone] Prince Bo MD Other alf (current) drug therapy 03/13/2024 Lab Requisition [facility] [address] [place] [phone] Prince Bo MD Localization-related (focal) (partial) idiopathic epilepsy and epileptic syndromes with seizures of localized onset, not intractable, without status epilepticus (CMS/HCC) 03/04/2024 Lab Requisition [facility] [address] [place] [phone] Prince Bo MD Encounter for screening for malignant neoplasm of prostate; Localization-related (focal) (partial) idiopathic epilepsy and epileptic syndromes with seizures of localized onset, not intractable, without status epilepticus (CMS/HCC) 02/11/2024 Lab Requisition [facility] [address] [place] [phone] Prince Bo MD Essential (primary) hypertension; Type 2 diabetes mellitus without complications (CMS/HCC) from Last 3 Months Social History Tobacco Use Types Packs/Day Years Used Date Smoking Tobacco: Never Assessed Sex and Gender Information Value Date Recorded Sex Assigned at Not on file Legal Sex Male 1:00 PM EDT Gender Identity Not on file Sexual Orientation Not on file Plan of Treatment Health Maintenance Due Date Last Done Comments Diabetes: Annual Foot Exam 1978 Diabetes: Annual Retina Eye Exam 1978 DTaP,Tdap,and Td Vaccines (1 - Tdap) 12/23/1987 Hepatitis B Vaccines (1 of 3 - 19+ 3-dose series) 12/23/1987 Pneumococcal Vaccine: 50+ Ye ars (1 of 2 - PCV) 12/23/1987 Pneumococcal Vaccine: Pediat rics (0 to 5 Years) and At-Risk Patients (6 to 64 Years) (1 of 2 - PCV) 12/23/1987 Zoster Vaccines (1 of 2) 2018 COVID-19 Vaccine ( - 2023-2 5 season) 2023 Influenza Vaccine (#1) 2023 Cholesterol Screening (Lipid Panel) 03/05/2024 Colorectal Cancer Screening: Colonoscopy 03/05/2024 Depression Screening 03/05/2024 Diabetes: Annual Urine Albumin-Creatinine Ratio (uACR) 03/05/2024 HIV Screening 03/05/2024 Hepatitis C Screening 03/05/2024 Medicare Annual Wellness Visit 03/05/2024 Social Influencers of Health Screening 03/05/2024 Diabetes: Blood Sugar Contro l Test (HGBA1C) 08/10/2024 02/11/2024 Diabetes: Annual GFR (Glomer ular Filtration Rate) 02/10/2025 02/11/2024 Hypertension/CHF/CAD Annual BMP Blood Test 02/10/2025 02/11/2024 HIB Vaccines Aged Out No longer eligi ble based on patient's age to complete this topic HPV Vaccines Aged Out No longer eligi ble based on patient's age to complete this topic Hepatitis A Vaccines Aged Out No long er eligible based on patient's age to complete this topic IPV Vaccines Aged Out No longer eligi ble based on patient's age to complete this topic MMR Vaccines Aged Out No longer eligi ble based on patient's age to complete this topic Meningococcal ACWY Vaccine Aged Out N o longer eligible based on patient's age to complete this topic Meningococcal B Vacine Aged Out No lo nger eligible based on patient's age to complete this topic RSV Immunization Patients Un nigel 20 months Aged Out No longer eligible b ased on patient's age to complete this topic Varicella Vaccines Aged Out No longer eligible based on patient's age to complete this topic Procedures Procedure Name Priority Date/Time Associated Diagnosis Comments ZINC Routine 04/02/2024 12:00 AM EST senior care (current) use of anticoagulants MAGNESIUM Routine 04/02/2024 12:00 AM EST senior care (current) use of anticoagulants CARBAMAZEPINE LEVEL, TOTAL Routine 03/13/2024 7:10 AM EST Localization-related (focal) (partial) idiopathic epilepsy and epileptic syndromes with seizures of localized onset, not intractable, without status epilepticus (CMS/HCC) SST - GOLD Routine 03/04/2024 2:10 PM EST Localization-related (focal) (partial) idiopathic epilepsy and epileptic syndromes with seizures of localized onset, not intractable, without status epilepticus (CMS/HCC) Encounter for screening for malignant neoplasm of prostate LEVETIRACETAM LEVEL Routine 03/04/2024 2 :10 PM EST Localization-related (focal) (partial) idiopathic epilepsy and epileptic syndromes with seizures of localized onset, not intractable, without status epilepticus (CMS/HCC) Encounter for screening for malignant neoplasm of prostate CARBAMAZEPINE LEVEL, TOTAL Routine 03/04/2024 2:10 PM EST Localization-related (focal) (partial) idiopathic epilepsy and epileptic syndromes with seizures of localized onset, not intractable, without status epilepticus (CMS/HCC) Encounter for screening for malignant neoplasm of prostate PROSTATE SPECIFIC ANTIGEN SCREEN Routine 03/04/2024 2:10 PM EST Localization-related (focal) (partial) idiopathic epilepsy and epileptic syndromes with seizures of localized onset, not intractable, without status epilepticus (CMS/HCC) Encounter for screening for malignant neoplasm of prostate TESTOSTERONE FREE, BIOAVAILABLE AND TOTAL Routine 03/04/2024 2:10 PM EST Localization-related (focal) (partial) idiopathic epilepsy and epileptic syndromes with seizures of localized onset, not intractable, without status epilepticus (CMS/HCC) Encounter for screening for malignant neoplasm of prostate TESTOSTERONE, TOTAL Routine 02/11/2024 6 :00 AM EST Essential (primary) hypertension Type 2 diabetes mellitus without complications (CMS/HCC) HEMOGLOBIN A1C Routine 02/11/2024 6:00 AM EST Essential (primary) hypertension Type 2 diabetes mellitus without complications (CMS/HCC) COMPREHENSIVE METABOLIC PANEL Routine 02/11/2024 6:00 AM EST Essential (primary) hypertension Type 2 diabetes mellitus without complications (CMS/HCC) from Last 3 Months Results * Zinc (04/02/2024 12:00 AM EST) Zinc 72 60 - 130 ug/dL 04/06/2024 2:55 PM EST [facility] Comment: Elevated results may be due to sample collected in a non-certified trace element-free tube. This test was developed and the performance characteristics determined by [facility]. It has not been cleared or approved by the FDA. The laboratory is regulated under CLIA as qualified to perform high-complexity testing. This test is used for patient testing purposes. It should not be regarded as investigational or for research. Test performed at [facility], [address] , [place], [place] ??[address] ? [phone] Nini Daniels MD, PhD - Surgery Technician Blood Venous blood specimen / Unknown 04/02/2024 04/02/2024 7:33 PM EST us Prince Bo MD LAB BLOOD ORDERABLES Final Resul t [facility] [address] [place] [address] * Magnesium (04/02/2024 12:00 AM EST) Magnesium 1.9 1.9 - 2.6 mg/dL LAB CHEMISTRY METHOD 04/02/2024 7:42 PM EST [facility] Blood Venous blood specimen / Unknown 04/02/2024 04/02/2024 7:33 PM EST us Prince Bo MD LAB BLOOD ORDERABLES Final Resul t Performing Organization Address [facility] [[email or web address]] Co de Phone Number [facility] [address] [place] [address], [place] [phone] * Carbamazepine level, total (03/13/2024 7:10 AM EST) Only the most recent of2 resultswithin the time period is included. Carbamazepine Level 9.2 8.0 - 12.0 mcg/mL LAB CHEMISTRY METHOD 03/13/2024 8:39 AM EST [facility] Blood Venous blood specimen / Unknown 03/13/2024 7:10 AM EST 03/13/2024 8:12 AM EST us Prince Bo MD LAB BLOOD ORDERABLES Final Resul t Performing Organization Address [facility] Phone Number [facility] [address] [place] [address], [place] [phone] * Prostate specific antigen screen (03/04/2024 2:10 PM EST) PSA 1.70 0.00 - 4.00 ng/mL LAB CHEMISTRY METHOD 03/04/2024 8:31 PM EST [facility] Blood Venous blood specimen / Unknown 03/04/2024 2:10 PM EST 03/04/2024 6:37 PM EST Narrative [facility] - 03/04/2024 8:31 PM EST The Siemens Advia Centaur Chemiluminescent Immunoassay is used. Results obtained with different assay methods or kits cannot be used interchangeably. Results cannot be interpreted as absolute evidence of the presence or absence of malignant disease. us Prince Bo MD LAB BLOOD ORDERABLES Final Resul t Performing Organization Address City/[facility] [[email or web address]] Co de Phone Number [facility] [address] [place] [address], [place] [phone] * SST tube (03/04/2024 2:10 PM EST) [facility] Extra Tube Hold for add-ons. 03/07/2024 9:01 PM EST [facility] Comment:Auto resulted. Blood Venous blood specimen / Unknown 03/04/2024 2:10 PM EST 03/04/2024 6:37 PM EST us Prince Bo MD LAB BLOOD ORDERABLES Final Resul t [facility] [address] [place] [address], [place] [phone] * (ABNORMAL) Testosterone free, bioavailable and total (03/04/2024 2:10 PM EST) [facility] Testosterone 142(L) 229 - 902 ng/dL LAB CHEMISTRY METHOD 03/04/2024 8:[address] [facility] Testosterone, Free 3.2(L) 4.6 - 22.4 ng/dL LAB CHEMISTRY METHOD 03/04/2024 8:[address] [facility] Testosterone, Bioavailable 78(L) 110 - 575 ng/dL LAB CHEMISTRY METHOD 03/04/2024 8:[address] [facility] Sex Hormone Binding 22.6 See Comment nmol/L LAB CHEMISTRY METHOD 03/04/2024 8:[address] [facility] Comment: FEMALES: ??pre-menopausal ?? 10.8 [...] LAB CHEMISTRY METHOD 03/04/2024 8:31 PM EST [facility] Blood Venous blood specimen / Unknown 03/04/2024 2:10 PM EST 03/04/2024 6:37 PM EST us Prince Bo MD LAB BLOOD ORDERABLES Final Resul t Performing Organization Address [facility]/ZIP Co de Phone Number [facility] [address] [place] [address], [place] [phone] * Levetiracetam level (03/04/2024 2:10 PM EST) [facility] Signature Levetiracetam 33.1 3.0 - 60.0 ug/mL 03/07/2024 9:13 AM EST [facility] Comment: Steady state trough serum or plasma levels following doses of 1000 to 3000 mg/Day: ??3 to 37 ug/mL. The same dosage regimen will typically result in peak levels of 10 to 60 ug/mL, at approximately 1.5 hours post dose. If applicable, any drug confirmation testing reported here was developed and the performance characteristics determined by [facility]. This confirmation testing has not been cleared or approved by the FDA. The laboratory is regulated under CLIA as qualified to perform high-complexity testing. This test is used for patient testing purposes. It should not be regarded as investigational or for research. Test performed at [facility], [address] , [place], [place] ??[address] ? [phone] Nini Daniels MD, PhD - Surgery Technician Blood Venous blood specimen / Unknown 03/04/2024 2:10 PM EST 03/04/2024 6:37 PM EST us Prince Bo MD LAB BLOOD ORDERABLES Final Resul t Performing Organization Address [facility]/ZIP Co de Phone Number [facility] [address] [place] [address] * (ABNORMAL) Testosterone, total (02/11/2024 6:00 AM EST) Testosterone 181(L) 229 - 902 ng/dL LAB CHEMISTRY METHOD 02/11/2024 8:30 AM EST [facility] Blood Venous blood specimen / Unknown 02/11/2024 6:00 AM EST 02/11/2024 7:29 AM EST us Prince Bo MD LAB BLOOD ORDERABLES Final Resul t Performing Organization Address [facility]/ZIP Co de Phone Number [facility] [address] [place] [address], [place] [phone] * (ABNORMAL) Hemoglobin A1c (02/11/2024 6:00 AM EST) Hemoglobin A1C 7.0(H) <6.5 % LAB CHEMISTRY METHOD 02/11/2024 1:43 PM EST [facility] Mean Bld Glu Estim. 154 mg/dL LAB CHEMISTRY METHOD 02/11/2024 1:43 PM EST [facility] Blood Venous blood specimen / Unknown 02/11/2024 6:00 AM EST 02/11/2024 7:29 AM EST us Prince Bo MD LAB BLOOD ORDERABLES Final Resul t Performing Organization Address City/[facility]/ZIP Co de Phone Number [facility] [address] [place] [address], [place] [phone] * (ABNORMAL) Comprehensive metabolic panel (02/11/2024 6:00 AM EST) Sodium 138 133 - 145 mmol/L LAB CHEMISTRY METHOD 02/11/2024 8:22 AM EST [facility] Potassium 4.3 3.5 - 5.5 mmol/L LAB CHEMISTRY METHOD 02/11/2024 8:22 AM EST [facility] Chloride 107 96 - 110 mmol/L LAB CHEMISTRY METHOD 02/11/2024 8:[address] [facility] CO2 26 21 - 32 mmol/L LAB CHEMISTRY METHOD 02/11/2024 8:[address] [facility] Anion Gap 5 3 - 11 LAB CHEMISTRY METHOD 02/11/2024 8:[address] [facility] Glucose 137(H) 70 - 100 mg/dL LAB CHEMISTRY METHOD 02/11/2024 8:[address] [facility] BUN 31(H) 5 - 25 mg/dL LAB CHEMISTRY METHOD 02/11/2024 8:[address] [facility] Creatinine 1.36(H) 0.70 - 1.30 mg/dL LAB CHEMISTRY METHOD 02/11/2024 8:[address] [facility] eGFR 61 >=60 mL/min/1. 73m2 LAB CHEMISTRY METHOD 02/11/2024 8:[address] [facility] Comment:Calculation based on the??Chronic Kidney Disease Epidemiology Collaboration (CKD-EPI) equation refit??without adjustment for race. BUN/Creatinine Ratio 22.8 LAB CHEMISTRY METHOD 02/11/2024 8:[address] [facility] Calcium 9.4 8.5 - 10.5 mg/dL LAB CHEMISTRY METHOD 02/11/2024 8:[address] [facility] AST (SGOT) 8(L) 10 - 42 unit/L LAB CHEMISTRY METHOD 02/11/2024 8:[address] [facility] ALT (SGPT) 20 10 - 60 unit/L LAB CHEMISTRY METHOD 02/11/2024 8:[address] [facility] Alkaline Phosphatase 67 42 - 121 unit/L LAB CHEMISTRY METHOD 02/11/2024 8:[address] [facility] Total Protein 7.5 6.0 - 8.0 g/dL LAB CHEMISTRY METHOD 02/11/2024 8:[address] [facility] Albumin 3.8 3.2 - 5.0 g/dL LAB CHEMISTRY METHOD 02/11/2024 8:22 AM EST [facility] Total Bilirubin 0.3 0.0 - 1.4 mg/dL LAB CHEMISTRY METHOD 02/11/2024 8:22 AM EST [facility] Blood Venous blood specimen / Unknown 02/11/2024 6:00 AM EST 02/11/2024 7:29 AM EST us Prince Bo MD LAB BLOOD ORDERABLES Final Resul t [facility] ([facility]) [facility] [address] [place] [address], from Last 3 Months Insurance MEDICARE Care Teams Shooter'S Helper Relationship Specialty Start Date End Date Simon Arredondo PA [address] [address] PCP - General Primary Care 03/31/24
--- OUTSIDE RECORDS SUMMARY | 2024-05-11 11:17 | XMS_ITS | Encounter Summary ---
Author Organization [facility] Address [address] [place] [address] Care Team Providers Care Superintendent Police Name Role Phone Simon Arredondo Primary Care Provider [phone] Encounter Details Date Type Department Care Team (Late st Contact Info) Description 02/11/[address] [facility] [address] [facility] [email or web address] [address] Prince Bo MD [address] [place] [address] [address] [place], [place] Essential (primary) hypertension; Type 2 diabetes mellitus without complications (CMS/HCC) Social History Tobacco Use Types Packs/Day [...] Procedure Name Priority Date/Time Associated Diagnosis Comments TESTOSTERONE, TOTAL Routine 02/11/2024 6 :00 AM EST Essential (primary) hypertension Type 2 diabetes mellitus without complications (CMS/HCC) HEMOGLOBIN A1C Routine 02/11/2024 6:00 AM EST Essential (primary) hypertension Type 2 diabetes mellitus without complications (CMS/HCC) COMPREHENSIVE METABOLIC PANEL Routine 02/11/2024 6:00 AM EST Essential (primary) hypertension Type 2 diabetes mellitus without complications (CMS/HCC) documented in this encounter Results * (ABNORMAL) Testosterone, total (02/11/2024 6:00 AM EST) Testosterone 181(L) 229 - 902 ng/dL LAB CHEMISTRY METHOD 02/11/2024 8:30 AM EST [facility] Blood Venous blood specimen / Unknown 02/11/2024 6:00 AM EST 02/11/2024 7:29 AM EST us Prince Bo MD LAB BLOOD ORDERABLES Final Resul t Performing Organization Address [facility] Co de Phone Number [facility] [address] [place] [address], [place] [phone] * (ABNORMAL) Hemoglobin A1c (02/11/2024 6:00 AM EST) Hemoglobin A1C 7.0(H) <6.5 % LAB CHEMISTRY METHOD 02/11/2024 1:43 PM [facility] Mean Bld Glu Estim. 154 mg/dL LAB CHEMISTRY METHOD 02/11/2024 1:43 PM [facility] Blood Venous blood specimen / Unknown 02/11/2024 6:00 AM EST 02/11/2024 7:29 AM EST us Prince Bo MD LAB BLOOD ORDERABLES Final Resul t Performing Organization Address [facility]/ZIP Co de Phone Number [facility] [address] [place] [address], [place] [phone] * (ABNORMAL) Comprehensive metabolic panel (02/11/2024 6:00 AM EST) Sodium 138 133 - 145 mmol/L LAB CHEMISTRY METHOD 02/11/2024 8:22 AM [facility] Potassium 4.3 3.5 - 5.5 mmol/L LAB CHEMISTRY METHOD 02/11/2024 8:22 AM [facility] Chloride 107 96 - 110 mmol/L LAB CHEMISTRY METHOD 02/11/2024 8:22 AM [facility] CO2 26 21 - 32 mmol/L LAB CHEMISTRY METHOD 02/11/2024 8:22 AM [facility] Anion Gap 5 3 - 11 LAB CHEMISTRY METHOD 02/11/2024 8:22 AM [facility] Glucose 137(H) 70 - 100 mg/dL LAB CHEMISTRY METHOD 02/11/2024 8:22 AM [facility] BUN 31(H) 5 - 25 mg/dL LAB CHEMISTRY METHOD 02/11/2024 8:22 AM [facility] Creatinine 1.36(H) 0.70 - 1.30 mg/dL LAB CHEMISTRY METHOD 02/11/2024 8:22 AM [facility] eGFR 61 >=60 mL/min/1. 73m2 LAB CHEMISTRY METHOD 02/11/2024 8:22 AM [facility] Comment:Calculation based on the??Chronic Kidney Disease Epidemiology Collaboration (CKD-EPI) equation refit??without adjustment for race. BUN/Creatinine Ratio 22.8 LAB CHEMISTRY METHOD 02/11/2024 8:22 AM [facility] Calcium 9.4 8.5 - 10.5 mg/dL LAB CHEMISTRY METHOD 02/11/2024 8:22 AM [facility] AST (SGOT) 8(L) 10 - 42 unit/L LAB CHEMISTRY METHOD 02/11/2024 8:22 AM [facility] ALT (SGPT) 20 10 - 60 unit/L LAB CHEMISTRY METHOD 02/11/2024 8:22 AM [facility] Alkaline Phosphatase 67 42 - 121 unit/L LAB CHEMISTRY METHOD 02/11/2024 8:22 AM [facility] Total Protein 7.5 6.0 - 8.0 g/dL LAB CHEMISTRY METHOD 02/11/2024 8:22 AM [facility] Albumin 3.8 3.2 - 5.0 g/dL LAB CHEMISTRY METHOD 02/11/2024 8:22 AM [facility] Total Bilirubin 0.3 0.0 - 1.4 mg/dL LAB CHEMISTRY METHOD 02/11/2024 8:22 AM EST [facility] Blood Venous blood specimen / Unknown 02/11/2024 6:00 AM EST 02/11/2024 7:29 AM EST us Prince oB MD LAB BLOOD ORDERABLES Final Resul t [facility] [address] [place] [address], documented in this encounter Visit Diagnoses Diagnosis Essential (primary) hypertension Unspecified essential hypertension Type 2 diabetes mellitus without complications documented in this encounter Care Teams Superintendent Police Relationship Specialty Start Date End Date Simon Arredondo PA [address] [place] [id number] PCP - General Primary Care 03/31/24 documented as of this encounter
--- OUTSIDE RECORDS SUMMARY | 2024-05-11 11:17 | XMS_ITS | Encounter Summary ---
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 This test was developed and the performance characteristics determined by [facility]. It has not been cleared or approved by the FDA. The laboratory is regulated under CLIA as qualified to perform high-complexity testing. This test is used for patient testing purposes. It should not be regarded as investigational or for research. Test performed at [facility], [address], [place], [place] [address] ? [phone] Nini Daniels MD, PhD - Software Quality Assurance Analyst Blood Venous blood specimen / Unknown 04/02/2024 04/02/2024 7:33 PM EST us Prince Bo MD LAB BLOOD ORDERABLES Final Resul t [facility] [address] 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
[2024-05-26 07:40] VITALS: BMI 27.5
--- NOTE | 2024-05-26 07:45 | P.HPSUR_ITS ---
Pre-Procedural Eval Section A - 24 Hr Update-Section A only Date of Service: 05/26/24 Section B - Complete if H&P > 30 days Chief Complaint: Encounter for screening for malignant neoplasm of Relevant Family History (Specify if Yes): No Relevant Social History: None Present Medications: see Short Stay Collaborative assessment Medical History: Significant History (Tubular adenoma of colon Intracerebral h emorrhage DVT (deep venous thrombosis) Hyperlipidemia ADD (attention deficit disorder) Type 2 diabetes mellitus Hemiparesis HTN (hypertension) Epilepsy) History of Previous Operations: Relevant previous surgery/procedure and date(s) (Hx of colonoscopy Hx of cystoscopy) Allergies: Allergies Allergy/AdvReac Type Severity Reaction Status Date / Time Penicillins Allergy Unknown Verified 03/18/24 09:31 Review of Systems Sugical H&P ROS: Negative: Constitution, Cardiovascular, Respiratory, Neurological, Psychiatric, Hem-Onc, Allergic/Immunologic, Gastrointestinal, Genitourinary, Musculoskeletal, Integumentary, Endocrine and Eyes/Ears/Nose/Throat Exam Surgical H&P Exam: Normal: HEENT, Normal: Heart, Normal: Lungs, Normal: Extremities, Normal: Abdomen, Normal: Skin and Normal: Neurological Plan Diagnosis/Plan: Unchanged I have reviewed the history and physical and performed a pertinent physical examination on my patient. No changes have occurred unless specified. Time Spent With Patient Time: Total time managing care of this patient today ____ minutes.
[2024-05-26 07:47] VITALS: BP 98/55; PULSE 71; RESP 16; TEMP 36.7; O2SAT 97
[2024-05-26 08:08] LABS: Glucose, Whole Blood 152 mg/dL (60-115)
--- NOTE | 2024-05-26 08:13 | HO.ANESPROP2 ---
HPI - Anesthesia Eval Consult details Narrative: 53 M for colonoscopy [facility] Active Problems Active Problems: All Active Problems Tubular adenoma of colon (Acute) Calcium nephrolithiasis (Acute) Past Medical History Medical History Tubular adenoma of colon Intracerebral hemorrhage DVT (deep venous thrombosis) Hyperlipidemia ADD (attention deficit disorder) Type 2 diabetes mellitus Hemiparesis HTN (hypertension) Epilepsy Family History Family history of problems with anesthesia: No Surgical History Surgical History Hx of colonoscopy Hx of cystoscopy History of Problems with Anesthesia: No Social History Social History Household Members: Other Housing: Other Housing Other:: resides at [facility] Alcohol intake: never Patient Tobacco Use Status: Never used Tobacco Tobacco use type: Cigarette Cigarettes Per Day: 4 Years Smoked: unknown Advance Directives Date on File: 09/26/22 service: No Meds Allergies Allergy/AdvReac Type Severity Reaction Status Date / Time Penicillins Allergy Unknown Verified 05/26/24 07:53 Active Medications: Current Medications Lactated Ringer's (Lr) 1,000 mls @ 100 mls/hr IVCONT .Q10H [place] Home Medications ?Medication ?Instructions ?Recorded ?Confirmed ?Last Taken ?Type acetaminophen 325 mg tablet 650 mg PO Q8H PRN fever/pain 09/20/22 06/20/23 Unknown History apixaban 5 mg tablet 5 mg PO BID 09/20/22 06/20/23 05/24/24 History carbamazepine 100 mg 100 mg PO BID 09/20/22 06/20/23 10/31/22 History capsule,extended release [id number] carbamazepine 400 mg 400 mg PO BID 09/20/22 06/20/23 10/31/22 History tablet,extended release,12 hr diclofenac sodium 1 % topical gel 4 g topical Q6H pain 09/20/22 06/20/23 Unknown History docusate sodium 100 mg tablet 100 mg PO BID 09/20/22 06/20/23 Unknown History guaifenesin 100 mg/5 mL oral liquid 200 mg PO Q4H PRN Cough 09/20/22 06/20/23 Unknown History lamotrigine 25 mg tablet 50 mg PO BID 09/20/22 06/20/23 Unknown History levetiracetam 1,000 mg tablet 1,000 mg PO BID 09/20/22 06/20/23 10/31/22 History (Tomasa) lidocaine 5 % topical patch 1 patch topical DAILY PRN Back Pain 09/20/22 06/20/23 Unknown History lisinopril 20 mg tablet 20 mg PO DAILY 09/20/22 06/20/23 Unknown History metoprolol succinate 25 mg 25 mg PO BID 09/20/22 06/20/23 Unknown History tablet,extended release 24 hr atorvastatin 20 mg tablet 40 mg PO BEDTIME 03/04/23 06/20/23 Unknown History dapagliflozin propanediol 10 mg 10 mg PO DAILY 03/04/23 06/20/23 05/24/24 History tablet gemfibrozil 600 mg tablet 600 mg PO BID 03/04/23 06/20/23 Unknown History atorvastatin 40 mg tablet 40 mg PO DAILY 03/18/24 Unknown History carbamazepine 100 mg 100 mg PO BID 03/18/24 Unknown History tablet,extended release,12 hr Exam Height,Weight and Vital Signs: Height 5 ft 5 in Weight 165 lb Last Vital Signs Temp 98.1 F 05/26/24 07:47 Pulse 71 05/26/24 07:47 Resp 16 05/26/24 07:47 BP 98/55 L 05/26/24 07:47 Pulse Ox 97 05/26/24 07:47 O2 Del Method Room Air 05/26/24 07:47 Pertinent Lab Results Pertinent Lab Results: Laboratory Tests 05/26/24 07:58 POC Glucose 152 H Airway Mallampati Class: II TM Dist: >3cm Neck ROM: Full Loose/Missing/Broken Teeth: Yes Assessment and Plan Assessment Anesthesia Assessment: Anesthesia Plan Discussed Final Anesthetic Review Family History of Problems with Anesthesia: No History of Problems with Anesthesia: No NPO: Yes ASA Class: III Final Preanesthetic Review: No Changes in Pt Med Stat, Meds/Allgs Chart Reviewed, Consent Obtained/Reviewed and Anes Risks/Benef Reviewed Patient Risk: Intermediate Procedure Risk: Low Anesthetic Plan Anesthetic Plan: MAC: Disposition: Standard PACU
--- NOTE | 2024-05-26 08:54 | HO.OPN-COLON ---
Colonoscopy Operative Note Operative Note Date of Service: 05/26/24 Narrative: Operative Information Procedure Description: Colonoscopy Indication: screening Anesthesia: MAC COLONOSCOPY Instrument: Olympus variable stiffness adult scope 190L Colonoscopy Monitoring: Vital signs and clinical assessment, continuous EKG monitoring, Pulse oximetry, Carbon Dioxide monitoring and blood pressure monitoring were done throughout the procedure. Colon withdrawal time was 10 minutes. Procedure: The patient was placed in the left lateral decubitis position and pre-procedure medications were administered. After a digital rectal examination of the ano-rectum, the video colonoscope was inserted into the rectum and advanced through the colon to the cecum/TI. The colonoscope was slowly withdrawn in a retrograde panoramic fashion and the colon mucosa was carefully examined including a retroflexed view of the rectum. Findings and interventions are described below. Procedure Difficulty: easy Findings: Terminal Ileum-normal Cecum:normal Ascending Colon: normal Transverse Colon -normal Descending Colon:normal Sigmoid Colon: normal Rectum: Retroflexion with small internal hemorrhoids seen, grade I- 5-7 mm sessile polyp removed with cold snare Anorectum - normal Intervention: cold snare Colon preparation: [place] Bowel Preparation Scale Right colon; 2 Transverse colon: 2 Left colon; 2 (0 = Unprepared colon segment with mucosa not seen due to solid stool that cannot be cleared. 1 = Portion of mucosa of the colon segment seen, but other areas of the colon segment not well seen due to staining, residual stool and/or opaque liquid. 2 = Minor amount of residual staining, small fragments of stool and/or opaque liquid, but mucosa of colon segment seen well. 3 = Entire mucosa of colon segment seen well with no residual staining, small fragments of stool or opaque liquid) Impression and Post Procedure Diagnosis: colon polyp internal hemorrhoids Plan: High fiber diet leaflet Avoid straining at stool, epsom salts and sitz bath, anusol supps or cream Repeat Colonoscopy in 5 years due to polyp or earlier if clinically indicated Above findings were reviewed with the patient and relevant handouts were provided if indicated.
[2024-05-26 09:01] VITALS: BP 94/65; PULSE 72; RESP 16; TEMP 36.4; O2SAT 97
[2024-05-26 09:16] VITALS: BP 110/48; PULSE 70; RESP 18; TEMP 36.2; O2SAT 98
== END 2024-05-26 09:31 | disposition home or self-care (01) ==
PROVIDERS: PCP Hospitalist; Visit Provider Internal Medicine Gastroenterology
PROC: 0DJD8ZZ Inspection of Lower Intestinal Tract, Via Natural or Artificial Opening Endoscopic (ICD-10-PCS; CPT 45378; principal; 2024-05-26 08:30)
DX: Z12.11 Encounter for screening for malignant neoplasm of colon (principal); Z86.0101 Personal history of adenomatous and serrated colon polyps; K62.1 Rectal polyp; K64.0 First degree hemorrhoids; G40.909 Epilepsy, unspecified, not intractable, without status epilepticus; I10 Essential (primary) hypertension; E11.9 Type 2 diabetes mellitus without complications; E78.5 Hyperlipidemia, unspecified; I69.154 Hemiplegia and hemiparesis following nontraumatic intracerebral hemorrhage affecting left non-dominant side; I82.503 Chronic embolism and thrombosis of unspecified deep veins of lower extremity, bilateral; Z79.01 Long term (current) use of anticoagulants; Z79.899 Other long term (current) drug therapy; Z88.0 Allergy status to penicillin; Z98.890 Other specified postprocedural states
CPT/HCPCS: 45385; 82947; 88305; J2003; J2371; J2704

== ENCOUNTER → 2024-05-26 06:33 | Outpatient (BNV) | payer MEDICARE, MEDICAID, SELFPAY | PROVIDERS: PCP Hospitalist; Visit Provider Internal Medicine Gastroenterology | DX: Z12.11 Encounter for screening for malignant neoplasm of colon (principal); K63.5 Polyp of colon; K64.0 First degree hemorrhoids | CPT/HCPCS: 45385 ==

== ENCOUNTER 2024-06-15 09:04 | Outpatient (REF) | payer MEDICARE, MEDICAID, SELFPAY ==
--- NOTE | ~2024-06-15 | US_ITS ---
EXAMINATION: US KIDNEY BILATERAL HISTORY: N20.0 - Calculus of kidney TECHNIQUE: Real-time grayscale ultrasound imaging of the kidneys was performed and images were reviewed. COMPARISON: Comparison is made with the prior examination dated 06/06/2023. FINDINGS: The examination is limited as the patient was imaged in a wheelchair. Right kidney: The right kidney measures 10.1 x 5.3 x 4.5 cm. Renal parenchymal echotexture and thickness are normal. There are no masses. There is a 1.3 x 0.4 x 0.9 cm cortical calcification at the upper pole. There is mild fullness of the renal pelvis. Left Kidney: The left kidney is not visualized due to overlying bowel gas. US/US renal BI IMPRESSION: 1.3 x 0.4 x 0.9 cm cortical calcification at the upper pole of the right kidney. Mild pelvic fullness of uncertain significance. The left kidney is not visualized. Electronically signed by: Nayan Ingram MD 06/15/2024 10:12 AM EDT
--- OUTSIDE RECORDS SUMMARY | 2024-06-15 09:42 | XMS_ITS | Encounter Summary ---
Author Organization [facility] Address [address] [place] [address] Care Team Providers Care Planer Operator Name Role Phone Simon Arredondo Primary Care Provider [phone] Encounter Details Date Type Department Care Team (Late st Contact Info) Description 04/02/2024 Lab Requisition [facility] - Main Lab [address] [place] [address] Prince Bo MD [address] [place] [address] [address] [place] USP (current) use of anticoagulants Social History Tobacco [...] Comments ZINC Routine 04/02/2024 12:00 AM EST keno terminal operator (current) use of anticoagulants MAGNESIUM Routine 04/02/2024 12:00 AM EST keno terminal operator (current) use of anticoagulants documented in this encounter Results * Zinc (04/02/2024 12:00 AM EST) Zinc 72 60 - 130 ug/dL 04/06/2024 2:55 PM EST [facility] Comment: Elevated results may be due to sample collected in a non-certified trace element-free tube. This test was developed and the performance characteristics determined by [facility]. It has not been cleared or approved by the FDA. The laboratory is regulated under CLIA as qualified to perform high-complexity testing. This test is used for patient testing purposes. It should not be regarded as investigational or for research. Test performed at [facility], [address], [place], [place] ??[address] ? [phone] Nini Daniels MD, PhD - Chlorine Cells Operator Blood Venous blood specimen / Unknown 04/02/2024 04/02/2024 7:33 PM EST us Prince Bo MD LAB BLOOD ORDERABLES Final Resul t [facility] [address] [place] [address] * Magnesium (04/02/2024 12:00 AM EST) [facility] Magnesium 1.9 1.9 - 2.6 mg/dL LAB CHEMISTRY METHOD 04/02/2024 7:42 PM EST [facility] Blood Venous blood specimen / Unknown 04/02/2024 04/02/2024 7:33 PM EST us Prince Bo MD LAB BLOOD ORDERABLES Final Resul t Performing Organization Address [facility] Co de Phone Number [facility] [address] [place] [address], documented in this encounter Visit Diagnoses Diagnosis keno terminal operator (current) use of anticoagulants Long-term (current) use of anticoagulants documented in this encounter Care Teams Planer Operator Relationship Specialty Start Date End Date Simon Arredondo PA [address] [address] PCP - General Primary Care 03/31/24 documented as of this encounter
--- OUTSIDE RECORDS SUMMARY | 2024-06-15 09:42 | XMS_ITS | Encounter Summary ---
Author Organization [facility] Address [address] [place] [address] Care Team Providers Care Adjuster Electrical Contacts Name Role Phone Simon Arredondo Primary Care Provider [phone] Encounter Details Date Type Department Care Team (Late st Contact Info) Description 02/11/2024 Lab Requisition [facility] - Main Lab [address] [facility] [employer] [place] [address] Prince Bo MD [address] [place] [address] [address] [place], [place] Essential (primary) hypertension; Type 2 diabetes mellitus without complications (CMS/HCC V24, CMS/HCC V28) Social History Tobacco Use Types Packs/Day Years [...] LAB CHEMISTRY METHOD 02/11/2024 8:30 AM EST [facility] Blood Venous blood specimen / Unknown 02/11/2024 6:00 AM EST 02/11/2024 7:29 AM EST us Prince Bo MD LAB BLOOD ORDERABLES Final Resul t Performing Organization Address [facility]/ZIP Co de Phone Number [facility] [address] [place] [address], [place] [phone] * (ABNORMAL) Hemoglobin A1c (02/11/2024 6:00 AM EST) Hemoglobin A1C 7.0(H) <6.5 % LAB CHEMISTRY METHOD 02/11/2024 1:43 PM [facility] Mean Bld Glu Estim. 154 mg/dL LAB CHEMISTRY METHOD 02/11/2024 1:43 PM [facility] Blood Venous blood specimen / Unknown 02/11/2024 6:00 AM EST 02/11/2024 7:29 AM EST us Prince Bo MD LAB BLOOD ORDERABLES Final Resul t Performing Organization Address [facility]/ZIP Co de Phone Number [facility] [address] [place] [address], [place] [phone] * (ABNORMAL) Comprehensive metabolic panel (02/11/2024 6:00 AM EST) Sodium 138 133 - 145 mmol/L LAB CHEMISTRY METHOD 02/11/2024 8:22 AM EST [facility] Potassium 4.3 3.5 - 5.5 mmol/L LAB CHEMISTRY METHOD 02/11/2024 8:22 AM EST [facility] Chloride 107 96 - 110 mmol/L LAB CHEMISTRY METHOD 02/11/2024 8:22 AM EST [facility] CO2 26 21 - 32 mmol/L LAB CHEMISTRY METHOD 02/11/2024 8:22 AM EST [facility] Anion Gap 5 3 - 11 LAB CHEMISTRY METHOD 02/11/2024 8:22 AM [facility] Glucose 137(H) 70 - 100 mg/dL LAB CHEMISTRY METHOD 02/11/2024 8:22 AM [facility] BUN 31(H) 5 - 25 mg/dL LAB CHEMISTRY METHOD 02/11/2024 8:22 AM [facility] Creatinine 1.36(H) 0.70 - 1.30 mg/dL LAB CHEMISTRY METHOD 02/11/2024 8:22 AM [facility] eGFR 61 >=60 mL/min/1. 73m2 LAB CHEMISTRY METHOD 02/11/2024 8:22 AM [facility] Comment:Calculation based on the??Chronic Kidney Disease Epidemiology Collaboration (CKD-EPI) equation refit??without adjustment for race. BUN/Creatinine Ratio 22.8 LAB CHEMISTRY METHOD 02/11/2024 8:22 AM [facility] Calcium 9.4 8.5 - 10.5 mg/dL LAB CHEMISTRY METHOD 02/11/2024 8:22 AM [facility] AST (SGOT) 8(L) 10 - 42 unit/L LAB CHEMISTRY METHOD 02/11/2024 8:22 AM [facility] ALT (SGPT) 20 10 - 60 unit/L LAB CHEMISTRY METHOD 02/11/2024 8:22 AM [facility] Alkaline Phosphatase 67 42 - 121 unit/L LAB CHEMISTRY METHOD 02/11/2024 8:22 AM [facility] Total Protein 7.5 6.0 - 8.0 g/dL LAB CHEMISTRY METHOD 02/11/2024 8:22 AM [facility] Albumin 3.8 3.2 - 5.0 g/dL LAB CHEMISTRY METHOD 02/11/2024 8:22 AM [facility] Total Bilirubin 0.3 0.0 - 1.4 mg/dL LAB CHEMISTRY METHOD 02/11/2024 8:22 AM EST [facility] Blood Venous blood specimen / Unknown 02/11/2024 6:00 AM EST 02/11/2024 7:29 AM EST us Prince Bo MD LAB BLOOD ORDERABLES Final Resul t [facility] [address] [place] [address], documented in this encounter Visit Diagnoses Diagnosis Essential (primary) hypertension Unspecified essential hypertension Type 2 diabetes mellitus without complications (CMS/HCC V24, CMS/HCC V28) documented in this encounter Care Teams Adjuster Electrical Contacts Relationship Specialty Start Date End Date Simon Arredondo PA [address] [place] [id number] PCP - General Primary Care 03/31/24 documented as of this encounter
--- OUTSIDE RECORDS SUMMARY | 2024-06-15 09:42 | XMS_ITS | Clinical Summary ---
Author Organization 299 [facility] Address [address] [place] [address] Phone Care Team Providers Care Pet Care Attendant Name Role Phone Simon Arredondo Primary Care Provider [phone] Encounters Date Type Department Care Team Description 05/18/2024 Lab Requisition [facility] [address] [place] [phone] Prince Bo MD Type 2 diabetes mellitus without complications (CMS/HCC V24, CMS/HCC V28); Hyperlipidemia, unspecified 04/02/2024 Lab Requisition [facility] [address] [place] [phone] Prince Bo MD care home (current) use of anticoagulants 03/31/2024 Lab Requisition [facility] [address] [place] [address] Prince Bo MD Other [facility] (current) drug therapy from Last 3 Months Social History Tobacco [...] 19+ 3-dose series) 12/23/1987 Pneumococcal Vaccine: 50+ Years (1 of 2 - PCV) 12/23/1987 Pneumococcal Vaccine: Pediatrics (0 to 5 Years) and At-Risk Patients (6 to 64 Years) (1 of 2 - PCV) 12/23/1987 Zoster Vaccines (1 of 2) 2018 COVID-19 Vaccine (2023-2 5 season) 2023 Colorectal Cancer Screening: Colonoscopy 03/05/2024 Depression Screening 03/05/2024 Diabetes: Annual Urine Albumin-Creatinine Ratio (uACR) 03/05/2024 HIV Screening 03/05/2024 Hepatitis C Screening 03/05/2024 Medicare Annual Wellness Visit 03/05/2024 Social Influencers of Health Screening 03/05/2024 Influenza Vaccine (Season Ended) 2024 Diabetes: Blood Sugar Contro l Test (HGBA1C) 11/17/2024 05/18/2024, 02/11/2024 Diabetes: Annual GFR (Glomerular Filtration Rate) 05/18/2025 05/18/2024, 02/11/2024 Hypertension/CHF/CAD Annual BMP Blood Test 05/18/2025 05/18/2024, 02/11/2024 Cholesterol Screening (Lipid Panel) 05/18/2029 05/18/2024 HIB Vaccines Aged Out No longer eligi [...] age to complete this topic Meningococcal B Vaccine Aged Out No l onger eligible based on patient's age to complete this topic RSV Immunization Patients Under 20 months Aged Out No longer eligible b ased on patient's age to complete this topic Varicella Vaccines Aged Out No longer eligible based on patient's age to complete this topic Procedures Procedure Name Priority Date/Time Associated Diagnosis Comments HEMOGLOBIN A1C Routine 05/18/2024 5:13 AM EDT Type 2 diabetes mellitus without complications Hyperlipidemia, unspecified LIPID PANEL WITH REFLEX TO DIRECT LDL Routine 05/18/2024 5:13 AM EDT Type 2 diabetes mellitus without complications Hyperlipidemia, unspecified COMPREHENSIVE METABOLIC PANEL Routine 05/18/2024 5:13 AM EDT Type 2 diabetes mellitus without complications Hyperlipidemia, unspecified ZINC Routine 04/02/2024 12:00 AM EST care home (current) use of anticoagulants MAGNESIUM Routine 04/02/2024 12:00 AM EST care home (current) use of anticoagulants from Last 3 Months Results * (ABNORMAL) Lipid panel with reflex to direct LDL (05/18/2024 5:13 AM EDT) Cholesterol 149 0 - 200 mg/dL LAB CHEMISTRY METHOD 05/18/2024 6:52 AM EDT [facility] Triglycerides 146 0 - 150 mg/dL LAB CHEMISTRY METHOD 05/18/2024 6:52 AM T [facility] HDL 31(L) >=40 mg/dL LAB CHEMISTRY METHOD 05/18/2024 6:52 AM EDT [facility] LDL Calculated 89 0 - 100 mg/dL LAB CHEMISTRY METHOD 05/18/2024 6:52 AM EDT [facility] VLDL Cholesterol Kenneth 29.2 mg/dL LAB CHEMISTRY METHOD 05/18/2024 6:52 AM T [facility] Non HDL Chol. (LDL+VLDL) 118 <145 mg/dL LAB CHEMISTRY METHOD 05/18/2024 6:52 AM EDT [facility] Chol/HDL Ratio 4.8(H) 0.0 - 4.4 LAB CHEMISTRY METHOD 05/18/2024 6:52 AM T [facility] Blood Venous blood specimen / Unknown 05/18/2024 5:13 AM EDT 05/18/2024 6:17 AM EDT us Prince Bo MD LAB BLOOD ORDERABLES Final Resul t [facility] [address] [place] [address], [place] [phone] * (ABNORMAL) Hemoglobin A1c (05/18/2024 5:13 AM EDT) [facility] Hemoglobin A1C 6.8(H) <6.5 % LAB CHEMISTRY METHOD 05/18/2024 10:49 AM T [facility] Mean Bld Glu Estim. 148 mg/dL LAB CHEMISTRY METHOD 05/18/2024 10:49 AM T [facility] Blood Venous blood specimen / Unknown 05/18/2024 5:13 AM EDT 05/18/2024 6:17 AM EDT us Prince oB MD LAB BLOOD ORDERABLES Final Resul t [facility] [address] [place] [address], * (ABNORMAL) Comprehensive metabolic panel (05/18/2024 5:13 AM EDT) [facility] Sodium 136 133 - 145 mmol/L LAB CHEMISTRY METHOD 05/18/2024 6:[address] [facility] Potassium 4.2 3.5 - 5.5 mmol/L LAB CHEMISTRY METHOD 05/18/2024 6:[address] [facility] Chloride 108 96 - 110 mmol/L LAB CHEMISTRY METHOD 05/18/2024 6:[address] [facility] CO2 19(L) 21 - 32 mmol/L LAB CHEMISTRY METHOD 05/18/2024 6:[address] [facility] Anion Gap 9 3 - 11 LAB CHEMISTRY METHOD 05/18/2024 6:[address] [facility] Glucose 122(H) 70 - 100 mg/dL LAB CHEMISTRY METHOD 05/18/2024 6:[address] [facility] BUN 30(H) 5 - 25 mg/dL LAB CHEMISTRY METHOD 05/18/2024 6:[address] [facility] Creatinine 1.36(H) 0.70 - 1.30 mg/dL LAB CHEMISTRY METHOD 05/18/2024 6:[address] [facility] eGFR 61 >=60 mL/min/1. 73m2 LAB CHEMISTRY METHOD 05/18/2024 6:[address] [facility] Comment:Calculation based on the??Chronic Kidney Disease Epidemiology Collaboration (CKD-EPI) equation refit??without adjustment for race. BUN/Creatinine Ratio 22.1 LAB CHEMISTRY METHOD 05/18/2024 6:[address] [facility] Calcium 9.7 8.5 - 10.5 mg/dL LAB CHEMISTRY METHOD 05/18/2024 6:[address] [facility] AST (SGOT) 8(L) 10 - 42 unit/L LAB CHEMISTRY METHOD 05/18/2024 6:[address] [facility] ALT (SGPT) 22 10 - 60 unit/L LAB CHEMISTRY METHOD 05/18/2024 6:[address] [facility] Alkaline Phosphatase 77 42 - 121 unit/L LAB CHEMISTRY METHOD 05/18/2024 6:[address] [facility] Total Protein 7.8 6.0 - 8.0 g/dL LAB CHEMISTRY METHOD 05/18/2024 6:[address] [facility] Albumin 3.9 3.2 - 5.0 g/dL LAB CHEMISTRY METHOD 05/18/2024 6:[address] [facility] Total Bilirubin 0.3 0.0 - 1.4 mg/dL LAB CHEMISTRY METHOD 05/18/2024 6:[address] [facility] Blood Venous blood specimen / Unknown 05/18/2024 5:13 AM EDT 05/18/2024 6:17 AM EDT us Prince Bo MD LAB BLOOD ORDERABLES Final Resul t [facility] [address] [place] [address], [place] [phone] * Zinc (04/02/2024 12:00 AM EST) Zinc 72 60 - 130 ug/dL 04/06/2024 2:55 PM EST [facility] Comment: Elevated results may be due to sample collected in a non-certified trace element-free tube. This test was developed and the performance characteristics determined by [facility]. It has not been cleared or approved by the FDA. The laboratory is regulated under CLIA as qualified to perform high-complexity testing. This test is used for patient testing purposes. It should not be regarded as investigational or for research. Test performed at [facility], [address] [place], [place] ??[address] ? [phone] Nini Daniels MD, PhD - Biology Manager Blood Venous blood specimen / Unknown 04/02/2024 04/02/2024 7:33 PM EST us Prince Bo MD LAB BLOOD ORDERABLES Final Resul t Performing Organization Address [facility] de Phone Number [facility] [address] [place] [address] * Magnesium (04/02/2024 12:00 AM EST) Magnesium 1.9 1.9 - 2.6 mg/dL LAB CHEMISTRY METHOD 04/02/2024 7:42 PM EST [facility] Blood Venous blood specimen / Unknown 04/02/2024 04/02/2024 7:33 PM EST us Prince Bo MD LAB BLOOD ORDERABLES Final Resul t Performing Organization Address [facility] Co de Phone Number [facility] [address] [place] [address], [place] [phone] from Last 3 Months Insurance MEDICARE Care Teams Pet Care Attendant Relationship Specialty Start Date End Date Simon Arredondo PA [address] [place] [id number] PCP - General Primary Care 03/31/24
--- OUTSIDE RECORDS SUMMARY | 2024-06-15 09:42 | XMS_ITS | Encounter Summary ---
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
--- OUTSIDE RECORDS SUMMARY | 2024-06-15 09:42 | XMS_ITS | Encounter Summary ---
Author Organization [facility] Address [address] [place] [phone] Care Team Providers Care Development Eng Name Role Phone Simon Arredondo Primary Care Provider [phone] Encounter Details Date Type Department Care Team (Late st Contact Info) Description 05/18/2024 Lab Requisition [facility] - Main Lab [address] [place] [address] Prince Bo MD [address] [place] [address] Dr [address] [place] Type 2 diabetes mellitus without complications (CMS/HCC V24, CMS/HCC V28); Hyperlipidemia, unspecified Social History Tobacco Use Types Packs/Day Years [...] Procedure Name Priority Date/Time Associated Diagnosis Comments LIPID PANEL WITH REFLEX TO DIRECT LDL Routine 05/18/2024 5:13 AM EDT Type 2 diabetes mellitus without complications Hyperlipidemia, unspecified HEMOGLOBIN A1C Routine 05/18/2024 5:13 AM EDT Type 2 diabetes mellitus without complications Hyperlipidemia, unspecified COMPREHENSIVE METABOLIC PANEL Routine 05/18/2024 5:13 AM EDT Type 2 diabetes mellitus without complications Hyperlipidemia, unspecified documented in this encounter Results * (ABNORMAL) Hemoglobin A1c (05/18/2024 5:13 AM EDT) Hemoglobin A1C 6.8(H) <6.5 % LAB CHEMISTRY METHOD 05/18/2024 10:49 AM EDT [facility] Mean Bld Glu Estim. 148 mg/dL LAB CHEMISTRY METHOD 05/18/2024 10:49 AM [facility] Blood Venous blood specimen / Unknown 05/18/2024 5:13 AM EDT 05/18/2024 6:17 AM EDT us Prince Bo MD LAB BLOOD ORDERABLES Final Resul t [facility] [address] [place] [address], [place] [phone] * (ABNORMAL) Lipid panel with reflex to direct LDL (05/18/2024 5:13 AM EDT) Cholesterol 149 0 - 200 mg/dL LAB CHEMISTRY METHOD 05/18/2024 6:52 AM [facility] Triglycerides 146 0 - 150 mg/dL LAB CHEMISTRY METHOD 05/18/2024 6:52 AM [facility] HDL 31(L) >=40 mg/dL LAB CHEMISTRY METHOD 05/18/2024 6:52 AM [facility] LDL Calculated 89 0 - 100 mg/dL LAB CHEMISTRY METHOD 05/18/2024 6:52 AM [facility] VLDL Cholesterol Kenneth 29.2 mg/dL LAB CHEMISTRY METHOD 05/18/2024 6:52 AM [facility] Non HDL Chol. (LDL+VLDL) 118 <145 mg/dL LAB CHEMISTRY METHOD 05/18/2024 6:52 AM [facility] Chol/HDL Ratio 4.8(H) 0.0 - 4.4 LAB CHEMISTRY METHOD 05/18/2024 6:52 AM [facility] Blood Venous blood specimen / Unknown 05/18/2024 5:13 AM EDT 05/18/2024 6:17 AM EDT us Prince Bo MD LAB BLOOD ORDERABLES Final Resul t [facility] [address] [place] [address], * (ABNORMAL) Comprehensive metabolic panel (05/18/2024 5:13 AM EDT) Sodium 136 133 - 145 mmol/L LAB CHEMISTRY METHOD 05/18/2024 6:52 AM [facility] Potassium 4.2 3.5 - 5.5 mmol/L LAB CHEMISTRY METHOD 05/18/2024 6:52 AM [facility] Chloride 108 96 - 110 mmol/L LAB CHEMISTRY METHOD 05/18/2024 6:52 AM [facility] CO2 19(L) 21 - 32 mmol/L LAB CHEMISTRY METHOD 05/18/2024 6:52 AM [facility] Anion Gap 9 3 - 11 LAB CHEMISTRY METHOD 05/18/2024 6:52 AM [facility] Glucose 122(H) 70 - 100 mg/dL LAB CHEMISTRY METHOD 05/18/2024 6:52 AM [facility] BUN 30(H) 5 - 25 mg/dL LAB CHEMISTRY METHOD 05/18/2024 6:52 AM [facility] Creatinine 1.36(H) 0.70 - 1.30 mg/dL LAB CHEMISTRY METHOD 05/18/2024 6:52 AM [facility] eGFR 61 >=60 mL/min/1. 73m2 LAB CHEMISTRY METHOD 05/18/2024 6:52 AM [facility] Comment:Calculation based on the??Chronic Kidney Disease Epidemiology Collaboration (CKD-EPI) equation refit??without adjustment for race. BUN/Creatinine Ratio 22.1 LAB CHEMISTRY METHOD 05/18/2024 6:52 AM [facility] Calcium 9.7 8.5 - 10.5 mg/dL LAB CHEMISTRY METHOD 05/18/2024 6:52 AM EDT [facility] AST (SGOT) 8(L) 10 - 42 unit/L LAB CHEMISTRY METHOD 05/18/2024 6:52 AM T [facility] ALT (SGPT) 22 10 - 60 unit/L LAB CHEMISTRY METHOD 05/18/2024 6:52 AM EDT [facility] Alkaline Phosphatase 77 42 - 121 unit/L LAB CHEMISTRY METHOD 05/18/2024 6:52 AM EDT [facility] Total Protein 7.8 6.0 - 8.0 g/dL LAB CHEMISTRY METHOD 05/18/2024 6:52 AM T [facility] Albumin 3.9 3.2 - 5.0 g/dL LAB CHEMISTRY METHOD 05/18/2024 6:52 AM [facility] Total Bilirubin 0.3 0.0 - 1.4 mg/dL LAB CHEMISTRY METHOD 05/18/2024 6:52 AM EDT [facility] Blood Venous blood specimen / Unknown 05/18/2024 5:13 AM EDT 05/18/2024 6:17 AM EDT us Prince oB MD LAB BLOOD ORDERABLES Final Resul t [facility] [address] [place] [address], documented in this encounter Visit Diagnoses Diagnosis Type 2 diabetes mellitus without complications (CMS/HCC V24, CMS/HCC V28) Hyperlipidemia, unspecified documented in this encounter Care Teams Development Eng Relationship Specialty Start Date End Date Simon Arredondo PA [address] [place] [id number] PCP - General Primary Care 03/31/24 documented as of this encounter
--- OUTSIDE RECORDS SUMMARY | 2024-06-15 09:42 | XMS_ITS | Encounter Summary ---
Author Organization [facility] Address [address] [place] [address] Care Team Providers Care Entry Level Sales Representative Name Role Phone Simon Arredondo Primary Care Provider [phone] Encounter Details Date Type Department Care Team (Late st Contact Info) Description 03/13/2024 Lab Requisition [facility] - Main Lab [address] [place] [address] Prince Bo MD [address] [place] [address] Dr [address] [place] Localization-related (focal) (partial) idiopathic epilepsy and epileptic syndromes with seizures of localized onset, not intractable, without status epilepticus (CMS/HCC V24, CMS/HCC V28) Social History Tobacco [...] LAB CHEMISTRY METHOD 03/13/2024 8:39 AM EST [facility]) [facility] Blood Venous blood specimen / Unknown 03/13/2024 7:10 AM EST 03/13/2024 8:12 AM EST us Prince Bo MD LAB BLOOD ORDERABLES Final Resul t [facility] LAB [address] [place] [address], documented in this encounter Visit Diagnoses Diagnosis Localization-related (focal) (partial) idiopathic epilepsy and epileptic syndromes with seizures of localized onset, not intractable, without status epilepticus (CMS/HCC V24, CMS/HCC V28) documented in this encounter Care Teams Entry Level Sales Representative Relationship Specialty Start Date End Date Simon Arredondo PA [address] [address] PCP - General Primary Care 03/31/24 documented as of this encounter
--- OUTSIDE RECORDS SUMMARY | 2024-06-15 09:42 | XMS_ITS | Encounter Summary ---
Author Organization [facility] Address [address] [place] [address] Care Team Providers Care Outdoor Pursuits Instructor Name Role Phone Simon Arredondo Primary Care Provider [phone] Encounter Details Date Type Department Care Team (Late st Contact Info) Description 03/04/2024 Lab Requisition [facility] - Main Lab [address] [facility] [employer] [place] [address] Prince Bo MD [address] [place] [address] Dr [address] [place] Encounter for screening for malignant neoplasm of [...] localized onset, not intractable, without status epilepticus ([facility]) Encounter for screening for malignant neoplasm of prostate SST - GOLD Routine 03/04/2024 2:10 PM EST Localization-relate d (focal) (partial) idiopathic epilepsy and epileptic syndromes with seizures of localized onset, not intractable, without status epilepticus ([facility]) Encounter for screening for malignant neoplasm of [...] Hold for add-ons. 03/07/2024 9:01 PM EST [facility] Comment:Auto resulted. Blood Venous blood specimen / Unknown 03/04/2024 2:10 PM EST 03/04/2024 6:37 PM EST us Prince Bo MD LAB BLOOD ORDERABLES Final Resul t [facility] [address] [place] [address], * Levetiracetam level (03/04/2024 2:10 PM EST) Levetiracetam 33.1 3.0 - 60.0 ug/mL 03/07/2024 9:13 AM EST [facility] Comment: Steady state trough serum or plasma levels following doses of 1000 to 3000 mg/Day: ??3 to 37 ug/mL. The same dosage regimen will typically result in peak levels of 10 to 60 ug/mL, at approximately 1.5 hours post dose. If applicable, any drug confirmation testing reported here was developed and the performance characteristics determined by [facility]. This confirmation testing has not been cleared or approved by the FDA. The laboratory is regulated under CLIA as qualified to perform high-complexity testing. This test is used for patient testing purposes. It should not be regarded as investigational or for research. Test performed at [facility], [address] , [place], [place] ??[address] ? [phone] Nini Daniels MD, PhD - Family Preservation Caseworker Blood Venous blood specimen / Unknown 03/04/2024 2:10 PM EST 03/04/2024 6:37 PM EST us Prince Bo MD LAB BLOOD ORDERABLES Final Resul t Performing Organization Address City/[facility]/ZIP Co de Phone Number [facility] [address] [place] [address] * (ABNORMAL) Carbamazepine level, total (03/04/2024 2:10 PM EST) Carbamazepine Level 13.0(HH) 8.0 - 12.0 mcg/mL LAB CHEMISTRY METHOD 03/04/2024 8:36 PM EST [facility] Blood Venous blood specimen / Unknown 03/04/2024 2:10 PM EST 03/04/2024 6:37 PM EST us Prince Bo MD LAB BLOOD ORDERABLES Final Resul t Performing Organization Address City/[facility]/ZIP Co de Phone Number [facility] [address] [place] [address], [place] [phone] * Prostate specific antigen screen (03/04/2024 2:10 PM EST) PSA 1.70 0.00 - 4.00 ng/mL LAB CHEMISTRY METHOD 03/04/2024 8:31 PM EST [facility] Blood Venous blood specimen / Unknown 03/04/2024 2:10 PM EST 03/04/2024 6:37 PM EST Narrative [facility] - 03/04/2024 8:31 PM EST The Siemens Advia Centaur Chemiluminescent Immunoassay is used. Results obtained with different assay methods or kits cannot be used interchangeably. Results cannot be interpreted as absolute evidence of the presence or absence of malignant disease. us Prince Bo MD LAB BLOOD ORDERABLES Final Resul t [facility] [address] [place] [address], * (ABNORMAL) Testosterone free, bioavailable and total (03/04/2024 2:10 PM EST) Testosterone 142(L) 229 - 902 ng/dL LAB CHEMISTRY METHOD 03/04/2024 8:31 PM EST [facility] Testosterone, Free 3.2(L) 4.6 - 22.4 ng/dL LAB CHEMISTRY METHOD 03/04/2024 8:31 PM [facility] Testosterone, Bioavailable 78(L) 110 - 575 ng/dL LAB CHEMISTRY METHOD 03/04/2024 8:31 PM EST [facility] Sex Hormone Binding 22.6 See Comment nmol/L LAB CHEMISTRY METHOD 03/04/2024 8:31 PM EST [facility] Comment: FEMALES: ??pre-menopausal ?? 10.8 [...] g/dL LAB CHEMISTRY METHOD 03/04/2024 8:31 PM [facility] Blood Venous blood specimen / Unknown 03/04/2024 2:10 PM EST 03/04/2024 6:37 PM EST us Prince Bo MD LAB BLOOD ORDERABLES Final Resul t [facility] [address] [place] [address], documented in this encounter Visit Diagnoses Diagnosis Encounter for screening for malignant neoplasm of prostate Localization-related (focal) (partial) idiopathic epilepsy and epileptic syndromes with seizures of localized onset, not intractable, without status epilepticus (CMS/HCC V24, CMS/HCC V28) documented in this encounter Care Teams Outdoor Pursuits Instructor Relationship Specialty Start Date End Date Simon Arredondo PA [address] [place] [address] PCP - General Primary Care 03/31/24 documented as of this encounter
== END 2024-06-15 09:05 | disposition home or self-care (01) ==
LOC: HO.US 09:04
PROVIDERS: PCP Hospitalist; Visit Provider Urology
DX: N20.0 Calculus of kidney (principal)
CPT/HCPCS: 76775

== ENCOUNTER → 2024-06-15 09:09 | Outpatient (BNV) | payer MEDICARE, MEDICAID, SELFPAY | PROVIDERS: PCP Hospitalist; Visit Provider Radiology Diagnostic Radiology | DX: R93.421 Abnormal radiologic findings on diagnostic imaging of right kidney (principal) | CPT/HCPCS: 76775 ==

== ENCOUNTER 2024-06-19 09:40 | Outpatient (AMB) | payer MEDICARE, MEDICAID, SELFPAY ==
--- NOTE | 2024-06-19 09:46 | A.OFFVIS_ITS ---
Intake Visit Reasons: 1y/US Intake Note: Patient is present for 1 year follow up Urology Medication: none Antibiotic Allergies: Penicillins Blood Thinners: Apixaban Allergies Penicillins Allergy (Verified 06/19/24 09:54) Unknown HPI Comments Details: Flavio is a pleasant male. He is a resident of [facility]. He is a patient Dr. Bo. He seen for the following urologic conditions - nephrolithiasis - hypogonadism Renal ultrasound Stable stone burden Encouraged 64 oz fluid per day 2nd issue is hypogonadism Lab work shows T1 42 Background diabetes Concurrent medications include antiseizure - known cause of hypogonadism Trial T/Gel Urinary Symptoms Review - No current urinary symptoms reported. - No stones present in kidneys per recent ultrasound. - Urination reported as fine, no issues Nephrolithiasis Seen in hospital September 2022 Imaging - 10/03 CT right proximal ureteric stone with hydronephrosis, creatinine 1.4. 1.1 cm right posterior renal calcification - 12/03 renal US - posterior calcification in place - 06/04 renal ultrasound small stone right, 10 mm stone left - 07/05 renal ultrasound known right calcification, no stone seen Intervention - 10/03 stent placed - 11/03 R ESWl with stent removal PFSH Medical History Tubular adenoma of colon Intracerebral hemorrhage DVT (deep venous thrombosis) Hyperlipidemia ADD (attention deficit disorder) Type 2 diabetes mellitus Hemiparesis HTN (hypertension) Epilepsy Surgical History Hx of colonoscopy Hx of cystoscopy Social History Household Members: Other Housing: Other Housing Other:: resides at [facility] Alcohol intake: never Patient Tobacco Use Status: Never used Tobacco Tobacco use type: Cigarette Cigarettes Per Day: 4 Years Smoked: unknown Advance Directives Date on File: 09/26/22 service: No Review of Systems Const Denies chills and Denies fever(s) Card Reports no additional complaints and Denies syncope Resp Denies cough GI Denies abdominal pain and Denies heartburn Reports as per HPI and Denies change in libido Neuro Denies syncope Psych Denies change in libido Endo Denies change in libido Physical Exam Const General: cooperative, healthy appearing, comfortable and no acute distress Orientation/consciousness: patient oriented x3 HEENT Face and sinus: Yes normal facial exam Mouth: moist mucous membranes Neck Neck: Yes normal visual inspection, Yes full ROM and Yes trachea midline Chest Chest palpation & inspection: normal inspection of the chest Resp Effort & Inspection: normal respiratory effort, able to speak in complete sentences and no respiratory distress GI Inspection: Yes normal to inspection Back/Spine/Pelvis Cervical Spine: normal cervical lordosis Thoracic/Lumbar Spine: thoracic and lumbar spine normal to inspection Skin General skin exam: no rashes or lesions noted Neuro General: patient oriented x3, gait normal, tone normal and moves all extremities Extrem General: Yes normal to inspection and Yes capillary refill normal Assessment & Plan Assessment & Plan (1) Hypogonadism in male: Code(s): E29.1 - Testicular hypofunction Category: Medical Plan 1. Hypogonadism Initiate testosterone gel daily. Rub in until dry after shower. Follow-up with labs in three months. 2. Diabetes Mellitus Monitor glycemic control; potential secondary benefit from testosterone therapy. Discussion Notes I discussed with the patient the management plan for hypogonadism, including the initiation of testosterone gel therapy. I explained the proper use of the gel, including application technique and timing post-shower. We covered potential benefits such as improved energy, endurance, and potential glycemic control improvement. Risks, including skin irritation and potential to transfer to others if not properly administered, were discussed, and the patient provided informed consent for this treatment plan. I outlined follow-up plans with lab work and assessment after three months. The importance of the timely completion of lab work prior to the follow-up was emphasized. Patient Instructions - Apply testosterone gel daily after showering. - Rub gel thoroughly until dry, wash hands after application. - Complete follow-up lab work two weeks before next visit. - Return for follow-up in three months. Orders: Orders Testosterone, Free/Total 3 Months E29.1 - Testicular hypofunction Patient Instructions: This note is constructed using voice recognition software. While every effort has been made to ensure accuracy pourer metal errors may have been included. Imaging studies, laboratory and physical exam results were discussed and reviewed in detail. No major barriers to patient understanding were identified. An opportunity to ask questions regarding the treatment plan was provided. All questions were answered. The patient expressed understanding and agreement with the above treatment plan. The patient is aware they should contact our office by phone for worsening of their current condition or the appearance of new urologic symptoms. Compliance is encouraged with any medications and followup testing that is ordered. It is a privilege to participate in the urologic care of your patient. If you have any questions or concerns regarding treatment for the above conditions, or other urologic issues, please do not hesitate to contact me. The office telephone contact is [phone]. Sincerely, Dr Javier Anderson MD, [facility] - Urology Compassionate Specialist Care for the Genitourinary System Coding Level of Care Code Est Pt Level 4 (04455) Complex EM visit Add On G2211 Diagnoses Hypogonadism in male E29.1
--- OUTSIDE RECORDS SUMMARY | 2024-06-19 10:01 | XMS_ITS | Encounter Summary ---
Author Organization [facility] Address [address] [place] [address] Care Team Providers Care Getterer Name Role Phone Simon Arredondo Primary Care Provider [phone] Encounter Details Date Type Department Care Team (Late st Contact Info) Description 03/31/2024 Lab Requisition [facility] - Main Lab [address] [place] [address] Prince Bo MD [address] [place] [address] [address] [place], [place] Other custodial (current) drug therapy Social History Tobacco Use [...] of this encounter Visit Diagnoses Diagnosis Other termite control service representative (current) drug therapy documented in this encounter Care Teams Getterer Relationship Specialty Start Date End Date Simon Arredondo PA 299 [facility] [address] [place], [place] [id number] PCP - General Primary Care 03/31/24 documented as of this encounter
--- OUTSIDE RECORDS SUMMARY | 2024-06-19 10:01 | XMS_ITS | Encounter Summary ---
Author Organization [facility] Address [address] [place] [address] Care Team Providers Care Data Manager Name Role Phone Simon Arredondo Primary Care Provider [phone] Encounter Details Date Type Department Care Team (Late st Contact Info) Description 03/13/2024 Lab Requisition [facility] - Main Lab [address] [place] [address] Prince Bo MD [address] [place] [address] Dr [address] [place] Localization-related (focal) (partial) idiopathic epilepsy and epileptic [...] LAB CHEMISTRY METHOD 03/13/2024 8:39 AM EST [facility] Blood Venous blood specimen / Unknown 03/13/2024 7:10 AM EST 03/13/2024 8:12 AM EST us Prince Bo MD LAB BLOOD ORDERABLES Final Resul t [facility] [address] [place] [address], documented in this encounter Visit Diagnoses Diagnosis 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
--- OUTSIDE RECORDS SUMMARY | 2024-06-19 10:01 | XMS_ITS | Clinical Summary ---
Author Organization 299 [facility] Address [address] [place] [address] Phone Care Team Providers Care Pharm Spec Name Role Phone Simon Arredondo Primary Care Provider [phone] Encounters Date Type Department Care Team Description 05/18/[address] [facility] Lab [address] [place] [phone] Prince Bo MD Type 2 diabetes mellitus without complications (CMS/HCC V24, CMS/HCC V28); Hyperlipidemia, unspecified 04/02/[address] [facility] Lab [address] [place] [phone] Prince Bo MD intermediate (current) use of anticoagulants 03/31/[address] [facility] Lab [address] [place] [address] Prince Bo MD Other group home (current) drug therapy from Last 3 Months [...] unspecified ZINC Routine 04/02/2024 12:00 AM EST intermediate (current) use of anticoagulants MAGNESIUM Routine 04/02/2024 12:00 AM EST intermediate (current) use of anticoagulants from Last 3 Months Results * (ABNORMAL) Lipid panel with reflex to direct LDL (05/18/2024 5:13 AM EDT) Cholesterol 149 0 - 200 mg/dL LAB CHEMISTRY METHOD 05/18/2024 6:52 AM EDT [facility] Triglycerides 146 0 - 150 mg/dL LAB CHEMISTRY METHOD 05/18/2024 6:52 AM T [facility] HDL 31(L) >=40 mg/dL LAB CHEMISTRY METHOD 05/18/2024 6:52 AM EDT [facility] LDL Calculated 89 0 - 100 mg/dL LAB CHEMISTRY METHOD 05/18/2024 6:52 AM EDT [facility] VLDL Cholesterol Kenneth 29.2 mg/dL LAB CHEMISTRY METHOD 05/18/2024 6:52 AM T [facility] Non HDL Chol. (LDL+VLDL) 118 <145 mg/dL LAB CHEMISTRY METHOD 05/18/2024 6:52 AM EDT [facility] Chol/HDL Ratio 4.8(H) 0.0 - 4.4 LAB CHEMISTRY METHOD 05/18/2024 6:52 AM T [facility] Blood Venous blood specimen / Unknown 05/18/2024 5:13 AM EDT 05/18/2024 6:17 AM EDT us Prince Bo MD LAB BLOOD ORDERABLES Final Resul t [facility] [address] [place] [address], [place] [phone] * (ABNORMAL) Hemoglobin A1c (05/18/2024 5:13 AM EDT) [facility] Hemoglobin A1C 6.8(H) <6.5 % LAB CHEMISTRY METHOD 05/18/2024 10:49 AM T [facility] Mean Bld Glu Estim. 148 mg/dL LAB CHEMISTRY METHOD 05/18/2024 10:49 AM T [facility] Blood Venous blood specimen / Unknown 05/18/2024 5:13 AM EDT 05/18/2024 6:17 AM EDT us Prince Bo MD LAB BLOOD ORDERABLES Final Resul t [facility] [address] [place] [address], * (ABNORMAL) Comprehensive metabolic panel (05/18/2024 5:13 AM EDT) [facility] Sodium 136 133 - 145 mmol/L LAB CHEMISTRY METHOD 05/18/2024 6:52 AM [facility] Potassium 4.2 3.5 - 5.5 mmol/L LAB CHEMISTRY METHOD 05/18/2024 6:52 AM [facility] Chloride 108 96 - 110 mmol/L LAB CHEMISTRY METHOD 05/18/2024 6:52 AM [facility] CO2 19(L) 21 - 32 mmol/L LAB CHEMISTRY METHOD 05/18/2024 6:52 AM [facility] Anion Gap 9 3 - 11 LAB CHEMISTRY METHOD 05/18/2024 6:52 AM [facility] Glucose 122(H) 70 - 100 mg/dL LAB CHEMISTRY METHOD 05/18/2024 6:52 AM [facility] BUN 30(H) 5 - 25 mg/dL LAB CHEMISTRY METHOD 05/18/2024 6:52 AM [facility] Creatinine 1.36(H) 0.70 - 1.30 mg/dL LAB CHEMISTRY METHOD 05/18/2024 6:52 AM [facility] eGFR 61 >=60 mL/min/1. 73m2 LAB CHEMISTRY METHOD 05/18/2024 6:52 AM [facility] Comment:Calculation based on the??Chronic Kidney Disease Epidemiology Collaboration (CKD-EPI) equation refit??without adjustment for race. BUN/Creatinine Ratio 22.1 LAB CHEMISTRY METHOD 05/18/2024 6:52 AM [facility] Calcium 9.7 8.5 - 10.5 mg/dL LAB CHEMISTRY METHOD 05/18/2024 6:52 AM [facility] AST (SGOT) 8(L) 10 - 42 unit/L LAB CHEMISTRY METHOD 05/18/2024 6:52 AM [facility] ALT (SGPT) 22 10 - 60 unit/L LAB CHEMISTRY METHOD 05/18/2024 6:52 AM [facility] Alkaline Phosphatase 77 42 - 121 unit/L LAB CHEMISTRY METHOD 05/18/2024 6:52 AM [facility] Total Protein 7.8 6.0 - 8.0 g/dL LAB CHEMISTRY METHOD 05/18/2024 6:52 AM [facility] Albumin 3.9 3.2 - 5.0 g/dL LAB CHEMISTRY METHOD 05/18/2024 6:52 AM [facility] Total Bilirubin 0.3 0.0 - 1.4 mg/dL LAB CHEMISTRY METHOD 05/18/2024 6:52 AM [facility] Blood Venous blood specimen / Unknown 05/18/2024 5:13 AM EDT 05/18/2024 6:17 AM EDT us Prince Bo MD LAB BLOOD ORDERABLES Final Resul t [facility] [address] [place] [address], [place] [phone] * Zinc (04/02/2024 12:00 AM EST) Zinc 72 60 - 130 ug/dL 04/06/2024 2:55 PM EST [facility] Comment: Elevated results may be due to sample collected in a non-certified trace element-free tube. This test was developed and the performance characteristics determined by [facility]. It has not been cleared or approved by the FDA. The laboratory is regulated under CLIA as qualified to perform high-complexity testing. This test is used for patient testing purposes. It should not be regarded as investigational or for research. Test performed at [facility], [address] [place], [place] ??[address] ? [phone] Nini Daniels MD, PhD - Kennel Technician Blood Venous blood specimen / Unknown 04/02/2024 04/02/2024 7:33 PM EST us Prince Bo MD LAB BLOOD ORDERABLES Final Resul t Performing Organization Address [facility] de Phone Number [facility] [address] [facility] [place] [address] * Magnesium (04/02/2024 12:00 AM EST) Magnesium 1.9 1.9 - 2.6 mg/dL LAB CHEMISTRY METHOD 04/02/2024 7:42 PM EST [facility] Blood Venous blood specimen / Unknown 04/02/2024 04/02/2024 7:33 PM EST us Prince Bo MD LAB BLOOD ORDERABLES Final Resul t Performing Organization Address [facility] Co de Phone Number [facility] [address] [place] [address], [place] [phone] from Last 3 Months Insurance MEDICARE Care Teams Pharm Spec Relationship Specialty Start Date End Date Simon Arredondo PA [address] [place] [id number] PCP - General Primary Care 03/31/24
--- OUTSIDE RECORDS SUMMARY | 2024-06-19 10:02 | XMS_ITS | Encounter Summary ---
Author Organization [facility] Address [id number] [place] [phone] Care Team Providers Care Dry Cell Assembly Machine Tender Name Role Phone Simon Arredondo Primary Care Provider [phone] Encounter Details Date Type Department Care Team (Late st Contact Info) Description 05/18/2024 Lab Requisition [facility] - Main Lab [address] [place] [address] Prince Bo MD [address] [place] [address] [address] [place] Type 2 diabetes mellitus without complications (CMS/HCC [...] LAB CHEMISTRY METHOD 05/18/2024 10:[address] [facility] Mean Bld Glu Estim. 148 mg/dL LAB CHEMISTRY METHOD 05/18/2024 10:49 AM [facility] Blood Venous blood specimen / Unknown 05/18/2024 5:13 AM EDT 05/18/2024 6:17 AM EDT us Prince Bo MD LAB BLOOD ORDERABLES Final Resul t [facility] [address] [place] [address], [place] [phone] * (ABNORMAL) Lipid panel with reflex to direct LDL (05/18/2024 5:13 AM EDT) Cholesterol 149 0 - 200 mg/dL LAB CHEMISTRY METHOD 05/18/2024 6:52 AM [facility] Triglycerides 146 0 - 150 mg/dL LAB CHEMISTRY METHOD 05/18/2024 6:52 AM [facility] HDL 31(L) >=40 mg/dL LAB CHEMISTRY METHOD 05/18/2024 6:52 AM [facility] LDL Calculated 89 0 - 100 mg/dL LAB CHEMISTRY METHOD 05/18/2024 6:52 AM [facility] VLDL Cholesterol Kenneth 29.2 mg/dL LAB CHEMISTRY METHOD 05/18/2024 6:52 AM [facility] Non HDL Chol. (LDL+VLDL) 118 <145 mg/dL LAB CHEMISTRY METHOD 05/18/2024 6:52 AM [facility] Chol/HDL Ratio 4.8(H) 0.0 - 4.4 LAB CHEMISTRY METHOD 05/18/2024 6:52 AM [facility] Blood Venous blood specimen / Unknown 05/18/2024 5:13 AM EDT 05/18/2024 6:17 AM EDT us Prince Bo MD LAB BLOOD ORDERABLES Final Resul t [facility] [address] [place] [address], * (ABNORMAL) Comprehensive metabolic panel (05/18/2024 5:13 AM EDT) Sodium 136 133 - 145 mmol/L LAB CHEMISTRY METHOD 05/18/2024 6:52 AM [facility] Potassium 4.2 3.5 - 5.5 mmol/L LAB CHEMISTRY METHOD 05/18/2024 6:52 AM [facility] Chloride 108 96 - 110 mmol/L LAB CHEMISTRY METHOD 05/18/2024 6:52 AM [facility] CO2 19(L) 21 - 32 mmol/L LAB CHEMISTRY METHOD 05/18/2024 6:52 AM [facility] Anion Gap 9 3 - 11 LAB CHEMISTRY METHOD 05/18/2024 6:52 AM [facility] Glucose 122(H) 70 - 100 mg/dL LAB CHEMISTRY METHOD 05/18/2024 6:52 AM [facility] BUN 30(H) 5 - 25 mg/dL LAB CHEMISTRY METHOD 05/18/2024 6:52 AM [facility] Creatinine 1.36(H) 0.70 - 1.30 mg/dL LAB CHEMISTRY METHOD 05/18/2024 6:52 AM [facility] eGFR 61 >=60 mL/min/1. 73m2 LAB CHEMISTRY METHOD 05/18/2024 6:52 AM [facility] Comment:Calculation based on the??Chronic Kidney Disease Epidemiology Collaboration (CKD-EPI) equation refit??without adjustment for race. BUN/Creatinine Ratio 22.1 LAB CHEMISTRY METHOD 05/18/2024 6:52 AM [facility] Calcium 9.7 8.5 - 10.5 mg/dL LAB CHEMISTRY METHOD 05/18/2024 6:[address] [facility] AST (SGOT) 8(L) 10 - 42 unit/L LAB CHEMISTRY METHOD 05/18/2024 6:[address] [facility] ALT (SGPT) 22 10 - 60 unit/L LAB CHEMISTRY METHOD 05/18/2024 6:[address] [facility] Alkaline Phosphatase 77 42 - 121 unit/L LAB CHEMISTRY METHOD 05/18/2024 6:[address] [facility] Total Protein 7.8 6.0 - 8.0 g/dL LAB CHEMISTRY METHOD 05/18/2024 6:[address] [facility] Albumin 3.9 3.2 - 5.0 g/dL LAB CHEMISTRY METHOD 05/18/2024 6:52 AM [facility] Total Bilirubin 0.3 0.0 - 1.4 mg/dL LAB CHEMISTRY METHOD 05/18/2024 6:[address] [facility] Blood Venous blood specimen / Unknown 05/18/2024 5:13 AM EDT 05/18/2024 6:17 AM EDT us Prince Bo MD LAB BLOOD ORDERABLES Final Resul t [facility] [address] [place] [address], documented in this encounter Visit Diagnoses Diagnosis Type 2 diabetes mellitus without complications (CMS/HCC V24, CMS/HCC V28) Hyperlipidemia, unspecified documented in this encounter Care Teams Dry Cell Assembly Machine Tender Relationship Specialty Start Date End Date Simon Arredondo PA [address] [place] [id number] PCP - General Primary Care 03/31/24 documented as of this encounter
--- OUTSIDE RECORDS SUMMARY | 2024-06-19 10:02 | XMS_ITS | Encounter Summary ---
Author Organization [facility] Address [address] [place] [address] Care Team Providers Care Call Center Director Name Role Phone Simon Arredondo Primary Care Provider [phone] Encounter Details Date Type Department Care Team (Late st Contact Info) Description 02/11/2024 Lab Requisition [facility] - Main Lab [address] [facility] [place] [address] Prince Bo MD [address] [place] [address] Dr [address] [place], [place] Essential (primary) hypertension; Type 2 diabetes mellitus [...] LAB CHEMISTRY METHOD 02/11/2024 8:30 AM EST [facility] Blood Venous blood specimen / Unknown 02/11/2024 6:00 AM EST 02/11/2024 7:29 AM EST us Prince Bo MD LAB BLOOD ORDERABLES Final Resul t Performing Organization Address [facility] [address]/ZIP Co de Phone Number [facility] [address] [place] [address], [place] [phone] * (ABNORMAL) Hemoglobin A1c (02/11/2024 6:00 AM EST) Hemoglobin A1C 7.0(H) <6.5 % LAB CHEMISTRY METHOD 02/11/2024 1:43 PM [facility] Mean Bld Glu Estim. 154 mg/dL LAB CHEMISTRY METHOD 02/11/2024 1:43 PM [facility] Blood Venous blood specimen / Unknown 02/11/2024 6:00 AM EST 02/11/2024 7:29 AM EST us Prince Bo MD LAB BLOOD ORDERABLES Final Resul t Performing Organization Address [facility] [address]/ZIP Co de Phone Number [facility] [address] [place] [address], [place] [phone] * (ABNORMAL) Comprehensive metabolic panel (02/11/2024 6:00 AM EST) Sodium 138 133 - 145 mmol/L LAB CHEMISTRY METHOD 02/11/2024 8:22 AM EST [facility] Potassium 4.3 3.5 - 5.5 mmol/L LAB CHEMISTRY METHOD 02/11/2024 8:22 AM EST [facility] Chloride 107 96 - 110 mmol/L LAB CHEMISTRY METHOD 02/11/2024 8:22 AM EST [facility] CO2 26 21 - 32 mmol/L LAB CHEMISTRY METHOD 02/11/2024 8:22 AM EST [facility] Anion Gap 5 3 - 11 LAB CHEMISTRY METHOD 02/11/2024 8:22 AM [facility] Glucose 137(H) 70 - 100 mg/dL LAB CHEMISTRY METHOD 02/11/2024 8:22 AM [facility] BUN 31(H) 5 - 25 mg/dL LAB CHEMISTRY METHOD 02/11/2024 8:22 AM [facility] Creatinine 1.36(H) 0.70 - 1.30 mg/dL LAB CHEMISTRY METHOD 02/11/2024 8:22 AM [facility] eGFR 61 >=60 mL/min/1. 73m2 LAB CHEMISTRY METHOD 02/11/2024 8:22 AM [facility] Comment:Calculation based on the??Chronic Kidney Disease Epidemiology Collaboration (CKD-EPI) equation refit??without adjustment for race. BUN/Creatinine Ratio 22.8 LAB CHEMISTRY METHOD 02/11/2024 8:22 AM [facility] Calcium 9.4 8.5 - 10.5 mg/dL LAB CHEMISTRY METHOD 02/11/2024 8:22 AM [facility] AST (SGOT) 8(L) 10 - 42 unit/L LAB CHEMISTRY METHOD 02/11/2024 8:22 AM [facility] ALT (SGPT) 20 10 - 60 unit/L LAB CHEMISTRY METHOD 02/11/2024 8:22 AM [facility] Alkaline Phosphatase 67 42 - 121 unit/L LAB CHEMISTRY METHOD 02/11/2024 8:22 AM [facility] Total Protein 7.5 6.0 - 8.0 g/dL LAB CHEMISTRY METHOD 02/11/2024 8:22 AM [facility] Albumin 3.8 3.2 - 5.0 g/dL LAB CHEMISTRY METHOD 02/11/2024 8:22 AM [facility] Total Bilirubin 0.3 0.0 - 1.4 mg/dL LAB CHEMISTRY METHOD 02/11/2024 8:22 AM EST [facility] Blood Venous blood specimen / Unknown 02/11/2024 6:00 AM EST 02/11/2024 7:29 AM EST us Prince Bo MD LAB BLOOD ORDERABLES Final Resul t [facility] [address] [place] [address], documented in this encounter Visit Diagnoses Diagnosis Essential (primary) hypertension Unspecified essential hypertension Type 2 diabetes mellitus without complications (CMS/HCC V24, CMS/HCC V28) documented in this encounter Care Teams Call Center Director Relationship Specialty Start Date End Date Simon Arredondo PA [address] [place] [id number] PCP - General Primary Care 03/31/24 documented as of this encounter
--- OUTSIDE RECORDS SUMMARY | 2024-06-19 10:02 | XMS_ITS | Encounter Summary ---
Author Organization [facility] Address [address] [place] [address] Care Team Providers Care Embroidery Cutter Name Role Phone Simon Arredondo Primary Care Provider Encounter Details Date Type Department Care Team (Late st Contact Info) Description 04/02/2024 Lab Requisition [facility] - Main Lab [address] [place] [address] Prince Bo MD [address] [place] [address] Dr [address] [place] correction (current) use of anticoagulants Social History Tobacco [...] Comments ZINC Routine 04/02/2024 12:00 AM EST rat exterminator (current) use of anticoagulants MAGNESIUM Routine 04/02/2024 12:00 AM EST rat exterminator (current) use of anticoagulants documented in this encounter Results * Zinc (04/02/2024 12:00 AM EST) Zinc 72 60 - 130 ug/dL 04/06/2024 2:55 PM EST [facility] Comment: Elevated results may be due to sample collected in a non-certified trace element-free tube. This test was developed and the performance characteristics determined by [facility]. It has not been cleared or approved by the FDA. The laboratory is regulated under CLIA as qualified to perform high-complexity testing. This test is used for patient testing purposes. It should not be regarded as investigational or for research. Test performed at [facility], [address], [place], [place] ??[address] ? [phone] Nini Daniels MD, PhD - Filtration Plant Operator Blood Venous blood specimen / Unknown 04/02/2024 04/02/2024 7:33 PM EST us Prince Bo MD LAB BLOOD ORDERABLES Final Resul t [facility] [address] [place] [address] * Magnesium (04/02/2024 12:00 AM EST) [facility] Magnesium 1.9 1.9 - 2.6 mg/dL LAB CHEMISTRY METHOD 04/02/2024 7:42 PM EST [facility] Blood Venous blood specimen / Unknown 04/02/2024 04/02/2024 7:33 PM EST us Prince Bo MD LAB BLOOD ORDERABLES Final Resul t Performing Organization Address [facility] Co de Phone Number [facility] [address] [place] [address], documented in this encounter Visit Diagnoses Diagnosis rat exterminator (current) use of anticoagulants Long-term (current) use of anticoagulants documented in this encounter Care Teams Embroidery Cutter Relationship Specialty Start Date End Date Simon Arredondo PA [address] [address] PCP - General Primary Care 03/31/24 documented as of this encounter
--- OUTSIDE RECORDS SUMMARY | 2024-06-19 10:02 | XMS_ITS | Encounter Summary ---
Author Organization [facility] Address [address] [place] [address] Care Team Providers Care Non Linear Editor Name Role Phone Simon Arredondo Primary Care Provider [phone] Encounter Details Date Type Department Care Team (Late st Contact Info) Description 03/04/2024 Lab Requisition [facility] - Main Lab [address] [facility] [place] [address] Prince Bo MD [address] [place] [address] [address] [place] Encounter for screening for malignant neoplasm of [...] localized onset, not intractable, without status epilepticus ([facility]) Encounter for screening for malignant neoplasm of prostate SST - GOLD Routine 03/04/2024 2:10 PM EST Localization-relate d (focal) (partial) idiopathic epilepsy and epileptic syndromes with seizures of localized onset, not intractable, without status epilepticus ([facility]) Encounter for screening for malignant neoplasm of [...] Resul t [facility] [address] [place] [address], * Levetiracetam level (03/04/2024 2:10 PM EST) [...] developed and the performance characteristics determined by [facility]. This confirmation testing has not been cleared or approved by the FDA. The laboratory is regulated under CLIA as qualified to perform high-complexity testing. This test is used for patient testing purposes. It should not be regarded as investigational or for research. Test performed at [facility], [address] , [place], [place] ??[address] ? [phone] Nini Daniels MD, PhD - Fundraising Consultant Blood Venous blood specimen / Unknown 03/04/2024 2:10 PM EST 03/04/2024 6:37 PM EST us Prince Bo MD LAB BLOOD ORDERABLES Final Resul t Performing Organization Address City/[facility]/ZIP Co de Phone Number [facility] [address] [place] [address] * (ABNORMAL) Carbamazepine level, total (03/04/2024 2:10 PM EST) Carbamazepine Level 13.0(HH) 8.0 - 12.0 mcg/mL LAB CHEMISTRY METHOD 03/04/2024 8:36 PM EST [facility] Blood Venous blood specimen / Unknown 03/04/2024 2:10 PM EST 03/04/2024 6:37 PM EST us Prince Bo MD LAB BLOOD ORDERABLES Final Resul t Performing Organization Address City/[facility]/ZIP Co de Phone Number [facility] [address] [place] [address], [place] [phone] * Prostate specific antigen screen (03/04/2024 2:10 [...] Resul t [facility] [address] [place] [address], * (ABNORMAL) Testosterone free, bioavailable and total (03/04/2024 2:10 PM EST) Testosterone 142(L) 229 - 902 ng/dL LAB CHEMISTRY METHOD 03/04/2024 8:31 PM EST [facility] Testosterone, Free 3.2(L) 4.6 - 22.4 ng/dL LAB CHEMISTRY METHOD 03/04/2024 8:31 PM [facility] Testosterone, Bioavailable 78(L) [...] g/dL LAB CHEMISTRY METHOD 03/04/2024 8:31 PM [facility] Blood Venous blood specimen / Unknown 03/04/2024 2:10 PM EST 03/04/2024 6:37 PM EST us Prince Bo MD LAB BLOOD ORDERABLES Final Resul t [facility] [address] [place] [address], documented in this encounter Visit Diagnoses Diagnosis Encounter for screening for malignant neoplasm of prostate Localization-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
== END 2024-06-19 10:18 | disposition home or self-care (01) ==
LOC: HO.HUSH 09:41
PROVIDERS: PCP Hospitalist; Visit Provider Urology
DX: E29.1 Testicular hypofunction (principal)
CPT/HCPCS: 99214; G2211

== ENCOUNTER → 2024-06-19 09:40 | Outpatient (BNVA) | payer MEDICARE, MEDICAID, SELFPAY | PROVIDERS: PCP Hospitalist; Visit Provider Urology | DX: E29.1 Testicular hypofunction (principal); Z87.442 Personal history of urinary calculi | CPT/HCPCS: 99212 ==

== ENCOUNTER 2024-09-23 10:32 | Outpatient (AMB) | payer MEDICARE, MEDICAID, SELFPAY ==
--- NOTE | 2024-09-23 10:32 | A.OFFVIS_ITS ---
Intake Visit Reasons: 3m/Testo Intake Note: Patient is present for: 3MO FOLLOW UP Urology Medication: none Blood Thinners: Apixaban LABS DONE 09/23/24: TESTO 170 Spanish Instructor Required: No Accompanied by: Health Care Proxy Allergies Penicillins Allergy (Verified 09/23/24 10:34) Unknown HPI Comments Details: Flavio is a pleasant male. He is a resident of [facility]. He is a patient Dr. Bo. He seen for the following urologic conditions - nephrolithiasis - hypogonadism Three-month follow-up hypogonadism Lab work back at 160 Minimal response to gel Move to trial of injectables 1 cc 200 mg Depo-Testosterone IM every 2 weeks Review lab work three-month Hypogonadism Baseline lab work T140 Background diabetes on antiseizure medications Initial therapy gel Nephrolithiasis Seen in hospital September 2022 Imaging - 10/03 CT right proximal ureteric stone with hydronephrosis, creatinine 1.4. 1.1 cm right posterior renal calcification - 12/03 renal US - posterior calcification in place - 06/04 renal ultrasound small stone right, 10 mm stone left - 07/05 renal ultrasound known right calcification, no stone seen Intervention - 10/03 stent placed - 11/03 R ESWl with stent removal PFSH Medical History Tubular adenoma of colon Intracerebral hemorrhage DVT (deep venous thrombosis) Hyperlipidemia ADD (attention deficit disorder) Type 2 diabetes mellitus Hemiparesis HTN (hypertension) Epilepsy Surgical History Hx of colonoscopy Hx of cystoscopy Social History Household Members: Other Housing: Other Housing Other:: resides at [facility] Alcohol intake: never Patient Tobacco Use Status: Never used Tobacco Tobacco use type: Cigarette Cigarettes Per Day: 4 Years Smoked: unknown Advance Directives Date on File: 09/26/22 service: No Review of Systems Const Denies chills and Denies fever(s) Card Reports no additional complaints and Denies syncope Resp Denies cough GI Denies abdominal pain and Denies heartburn Reports as per HPI and Denies change in libido Neuro Denies syncope Psych Denies change in libido Endo Denies change in libido Physical Exam Const General: cooperative, healthy appearing, comfortable and no acute distress Orientation/consciousness: patient oriented x3 HEENT Face and sinus: Yes normal facial exam Mouth: moist mucous membranes Neck Neck: Yes normal visual inspection, Yes full ROM and Yes trachea midline Chest Chest palpation & inspection: normal inspection of the chest Resp Effort & Inspection: normal respiratory effort, able to speak in complete sentences and no respiratory distress GI Inspection: Yes normal to inspection Back/Spine/Pelvis Cervical Spine: normal cervical lordosis Thoracic/Lumbar Spine: thoracic and lumbar spine normal to inspection Skin General skin exam: no rashes or lesions noted Neuro General: patient oriented x3, gait normal, tone normal and moves all extremities Extrem General: Yes normal to inspection and Yes capillary refill normal Assessment & Plan Assessment & Plan (1) Hypogonadism in male: Code(s): E29.1 - Testicular hypofunction Category: Medical Plan Depo testosterone Three-month follow-up Orders: Orders Testosterone, Total 3 Months E29.1 - Testicular hypofunction Medications: New testosterone cypionate (Depo-Testosterone) 200 mg IM Q2W 2 mL 5RF 4 weeks E29.1 - Testicular hypofunction Patient Instructions: This note is constructed using voice recognition software. While every effort has been made to ensure accuracy rivet heater errors may have been included. Imaging studies, laboratory and physical exam results were discussed and reviewed in detail. No major barriers to patient understanding were identified. An opportunity to ask questions regarding the treatment plan was provided. All questions were answered. The patient expressed understanding and agreement with the above treatment plan. The patient is aware they should contact our office by phone for worsening of their current condition or the appearance of new urologic symptoms. Compliance is encouraged with any medications and followup testing that is ordered. It is a privilege to participate in the urologic care of your patient. If you have any questions or concerns regarding treatment for the above conditions, or other urologic issues, please do not hesitate to contact me. The office telephone contact is [phone]. Sincerely, Dr Javier Anderson MD, [facility] - Urology Compassionate Specialist Care for the Genitourinary System Coding Level of Care Code Est Pt Level 4 (96238) Diagnoses Hypogonadism in male E29.1
== END 2024-09-23 11:09 | disposition home or self-care (01) ==
LOC: HO.HUSH 10:33
PROVIDERS: PCP Hospitalist; Visit Provider Urology
DX: E29.1 Testicular hypofunction (principal)
CPT/HCPCS: 99214

== ENCOUNTER → 2024-09-23 10:32 | Outpatient (BNVA) | payer MEDICARE, MEDICAID, SELFPAY | PROVIDERS: PCP Hospitalist; Visit Provider Urology | DX: E29.1 Testicular hypofunction (principal) | CPT/HCPCS: 99212 ==

== ENCOUNTER 2024-12-24 10:09 | Outpatient (AMB) | payer MEDICARE, MEDICAID, SELFPAY ==
--- NOTE | 2024-12-24 10:11 | MHC.OFFVIS ---
Intake Visit Reasons: 3m/Testo Intake Note: Patient is present for: 3MO FOLLOW UP Urology Medication: Testosterone Blood Thinners: Apixaban Labs done : 12/14/24 Total testosterone 109 Phone Manager Required: No Accompanied by: Health Care Proxy Allergies Penicillins Allergy (Verified 12/24/24 10:15) Unknown HPI Comments Details: Flavio is a pleasant male. He is a resident of [facility]. He is a patient Dr. Bo. He seen for the following urologic conditions - nephrolithiasis - hypogonadism Reviewed lab work T was low but labs taken at end of cycle Continue - 1 cc 200 mg Depo-Testosterone IM every 2 weeks Six-month follow-up Hypogonadism Baseline lab work T140, 01/05 109 Background diabetes on antiseizure medications Initial therapy gel Nephrolithiasis Seen in hospital September 2022 Imaging - 10/03 CT right proximal ureteric stone with hydronephrosis, creatinine 1.4. 1.1 cm right posterior renal calcification - 12/03 renal US - posterior calcification in place - 06/04 renal ultrasound small stone right, 10 mm stone left - 07/05 renal ultrasound known right calcification, no stone seen Intervention - 10/03 stent placed - 11/03 R ESWl with stent removal PFSH Medical History Tubular adenoma of colon Intracerebral hemorrhage DVT (deep venous thrombosis) Hyperlipidemia ADD (attention deficit disorder) Type 2 diabetes mellitus Hemiparesis HTN (hypertension) Epilepsy Surgical History Hx of colonoscopy Hx of cystoscopy Social History Household Members: Other Housing: Other Housing Other:: resides at [facility] Alcohol intake: never Patient Tobacco Use Status: Never used Tobacco Tobacco use type: Cigarette Cigarettes Per Day: 4 Years Smoked: unknown Advance Directives Date on File: 09/26/22 service: No Review of Systems Const Denies chills and Denies fever(s) Card Reports no additional complaints and Denies syncope Resp Denies cough GI Denies abdominal pain and Denies heartburn Reports as per HPI and Denies change in libido Neuro Denies syncope Psych Denies change in libido Endo Denies change in libido Physical Exam Const General: cooperative, healthy appearing, comfortable and no acute distress Orientation/consciousness: patient oriented x3 HEENT Face and sinus: Yes normal facial exam Mouth: moist mucous membranes Neck Neck: Yes normal visual inspection, Yes full ROM and Yes trachea midline Chest Chest palpation & inspection: normal inspection of the chest Resp Effort & Inspection: normal respiratory effort, able to speak in complete sentences and no respiratory distress GI Inspection: Yes normal to inspection Back/Spine/Pelvis Cervical Spine: normal cervical lordosis Thoracic/Lumbar Spine: thoracic and lumbar spine normal to inspection Skin General skin exam: no rashes or lesions noted Neuro General: patient oriented x3, gait normal, tone normal and moves all extremities Extrem General: Yes normal to inspection and Yes capillary refill normal Assessment & Plan Assessment & Plan (1) Hypogonadism in male: Code(s): E29.1 - Testicular hypofunction Category: Medical (2) Calcium nephrolithiasis: Code(s): N20.0 - Calculus of kidney Category: Medical Plan Six-month follow-up lab work office Orders: Orders Prostate Specific Antigen 5 Months E29.1 - Testicular hypofunction Hematocrit 5 Months E29.1 - Testicular hypofunction Testosterone, Total 5 Months E29.1 - Testicular hypofunction Medications: Refilled testosterone cypionate (Depo-Testosterone) 200 mg IM Q2W 2 mL 5RF 4 weeks E29.1 - Testicular hypofunction Patient Instructions: This note is constructed using voice recognition software. While every effort has been made to ensure accuracy communications attendant errors may have been included. Imaging studies, laboratory and physical exam results were discussed and reviewed in detail. No major barriers to patient understanding were identified. An opportunity to ask questions regarding the treatment plan was provided. All questions were answered. The patient expressed understanding and agreement with the above treatment plan. The patient is aware they should contact our office by phone for worsening of their current condition or the appearance of new urologic symptoms. Compliance is encouraged with any medications and followup testing that is ordered. It is a privilege to participate in the urologic care of your patient. If you have any questions or concerns regarding treatment for the above conditions, or other urologic issues, please do not hesitate to contact me. The office telephone contact is [phone]. Sincerely, Dr Javier Anderson MD, [facility] - Urology Compassionate Specialist Care for the Genitourinary System Coding Level of Care Code Est Pt Level 3 (11084) Complex EM visit Add On G2211 Diagnoses Hypogonadism in male E29.1 Calcium nephrolithiasis N20.0
--- OUTSIDE RECORDS SUMMARY | 2024-12-24 12:12 | XMS_ITS | Encounter Summary ---
Author Organization [facility] Address [address] [place] [address] Care Team Providers Care Disaster Director Name Role Phone Simon Arredondo Primary Care Provider [phone] Encounter Details Date Type Department Care Team (Late st Contact Info) Description 09/18/[address] [facility] - Main Lab [address] [place] [address] Prince Bo MD [address] [place] [address] [address] [place], [place] Essential (primary) hypertension Social History Tobacco Use Types Packs/Day Years [...] Procedure Name Priority Date/Time Associated Diagnosis Comments THYROID STIMULATING HORMONE Routine 09/18/2024 6:39 AM EDT Essential (primary) hypertension TESTOSTERONE, TOTAL Routine 09/18/2024 6 :39 AM EDT Essential (primary) hypertension documented in this encounter Results * (ABNORMAL) Testosterone, total (09/18/2024 6:39 AM EDT) Testosterone 170(L) 229 - 902 ng/dL LAB CHEMISTRY METHOD 09/18/2024 10:33 AM EDT [facility] Blood Venous blood specimen / Unknown 09/18/2024 6:39 AM EDT 09/18/2024 7:29 AM EDT us Prinec Bo MD LAB BLOOD ORDERABLES Final Resul t Performing Organization Address [facility] de Phone Number [facility] [address] [place] [address], [place] [phone] * Thyroid stimulating hormone (09/18/2024 6:39 AM EDT) TSH 1.12 0.40 - 4.00 mcIU/mL LAB CHEMISTRY METHOD 09/18/2024 8:30 AM EDT [facility] Blood Venous blood specimen / Unknown 09/18/2024 6:39 AM EDT 09/18/2024 7:29 AM EDT us Prince Bo MD LAB BLOOD ORDERABLES Final Resul t Performing Organization Address [facility] de Phone Number [facility] [address] [place] [address], [place] [phone] documented in this encounter Visit Diagnoses Diagnosis Essential (primary) hypertension Unspecified essential hypertension documented in this encounter Care Teams Disaster Director Relationship Specialty Start Date End Date Simon Arredondo PA [address] [place] [id number] PCP - General Primary Care 03/31/24 documented as of this encounter
--- OUTSIDE RECORDS SUMMARY | 2024-12-24 12:12 | XMS_ITS | Encounter Summary ---
Author Organization [facility] Address [address] [place] [address] Care Team Providers Care Small Products Assembler Name Role Phone Simon Arredondo Primary Care Provider [phone] Encounter Details Date Type Department Care Team (Late st Contact Info) Description 11/16/2024 Lab Requisition [facility] - Main Lab [address] [facility] [employer] [place] [address] Prince Bo MD [address] [place] [address] Dr [address] [place], [place] Type 2 diabetes mellitus without complications (CMS/HCC [...] PANEL WITH REFLEX TO DIRECT LDL Routine 11/16/2024 6:11 AM EDT Type 2 diabetes mellitus without complications (CMS/HCC V24, CMS/HCC V28) Hyperlipidemia, unspecified HEMOGLOBIN A1C Routine 11/16/2024 6:11 AM EDT Type 2 diabetes mellitus without complications (CMS/HCC V24, CMS/HCC V28) Hyperlipidemia, unspecified COMPREHENSIVE METABOLIC PANEL Routine 11/16/2024 6:11 AM EDT Type 2 diabetes mellitus without complications (CMS/HCC V24, CMS/HCC V28) Hyperlipidemia, unspecified documented in this encounter Results * Hemoglobin A1c (11/16/2024 6:11 AM EDT) [facility] Hemoglobin A1C 6.4 <6.5 % LAB CHEMISTRY METHOD 11/16/2024 1:29 PM EDT [facility] Mean Bld Glu Estim. 137 mg/dL LAB CHEMISTRY METHOD 11/16/2024 1:29 PM [facility] Blood Venous blood specimen / Unknown 11/16/2024 6:11 AM EDT 11/16/2024 7:03 AM EDT us Prince Bo MD LAB BLOOD ORDERABLES Final Resul t [facility] [address] [place] [address], [place] [phone] * (ABNORMAL) Lipid panel with reflex to direct LDL (11/16/2024 6:11 AM EDT) [facility] Cholesterol 142 0 - 200 mg/dL LAB CHEMISTRY METHOD 11/16/2024 7:59 AM [facility] Triglycerides 125 0 - 150 mg/dL LAB CHEMISTRY METHOD 11/16/2024 7:59 AM [facility] HDL 31(L) >=40 mg/dL LAB CHEMISTRY METHOD 11/16/2024 7:59 AM [facility] LDL Calculated 86 0 - 100 mg/dL LAB CHEMISTRY METHOD 11/16/2024 7:59 AM [facility] Comment:Estimated LDL Calcul ated using equation: Total cholesterol - HDL cholesterol - (Triglycerides/5) VLDL Cholesterol Kenneth 25 mg/dL LAB CHEMISTRY METHOD 11/16/2024 7:59 AM [facility] Non HDL Chol. (LDL+VLDL) 111 <145 mg/dL LAB CHEMISTRY METHOD 11/16/2024 7:59 AM [facility] Chol/HDL Ratio 4.6(H) 0.0 - 4.4 LAB CHEMISTRY METHOD 11/16/2024 7:59 AM [facility] Blood Venous blood specimen / Unknown 11/16/2024 6:11 AM EDT 11/16/2024 7:03 AM EDT us Prince Bo MD LAB BLOOD ORDERABLES Final Resul t [facility] [address] [place] [address], [place] [phone] * (ABNORMAL) Comprehensive metabolic panel (11/16/2024 6:11 AM EDT) Sodium 138 133 - 145 mmol/L LAB CHEMISTRY METHOD 11/16/2024 7:59 AM [facility] Potassium 4.3 3.5 - 5.5 mmol/L LAB CHEMISTRY METHOD 11/16/2024 7:59 AM [facility] Chloride 107 96 - 110 mmol/L LAB CHEMISTRY METHOD 11/16/2024 7:59 AM [facility] CO2 22 21 - 32 mmol/L LAB CHEMISTRY METHOD 11/16/2024 7:59 AM [facility] Anion Gap 9 3 - 11 LAB CHEMISTRY METHOD 11/16/2024 7:59 AM [facility] Glucose 104(H) 70 - 100 mg/dL LAB CHEMISTRY METHOD 11/16/2024 7:59 AM [facility] BUN 30(H) 5 - 25 mg/dL LAB CHEMISTRY METHOD 11/16/2024 7:59 AM [facility] Creatinine 1.59(H) 0.70 - 1.30 mg/dL LAB CHEMISTRY METHOD 11/16/2024 7:59 AM [facility] eGFR 51(L) >=60 mL/min/1. 73m2 LAB CHEMISTRY METHOD 11/16/2024 7:59 AM [facility] Comment:Calculation based on the Chronic Kidney Disease Epidemiology Collaboration (CKD-EPI) equation refit without adjustment for race. BUN/Creatinine Ratio 18.9 LAB CHEMISTRY METHOD 11/16/2024 7:59 AM [facility] Calcium 9.4 8.5 - 10.5 mg/dL LAB CHEMISTRY METHOD 11/16/2024 7:59 AM [facility] AST (SGOT) 8(L) 10 - 42 unit/L LAB CHEMISTRY METHOD 11/16/2024 7:59 AM [facility] ALT (SGPT) 20 10 - 60 unit/L LAB CHEMISTRY METHOD 11/16/2024 7:59 AM [facility] Alkaline Phosphatase 70 42 - 121 unit/L LAB CHEMISTRY METHOD 11/16/2024 7:59 AM [facility] Total Protein 7.4 6.0 - 8.0 g/dL LAB CHEMISTRY METHOD 11/16/2024 7:59 AM [facility] Albumin 3.8 3.2 - 5.0 g/dL LAB CHEMISTRY METHOD 11/16/2024 7:59 AM [facility] Total Bilirubin 0.3 0.0 - 1.4 mg/dL LAB CHEMISTRY METHOD 11/16/2024 7:59 AM [facility] Blood Venous blood specimen / Unknown 11/16/2024 6:11 AM EDT 11/16/2024 7:03 AM EDT Prince Bo MD LAB BLOOD ORDERABLES Final Resul t [facility] [address] [place] [address], documented in this encounter Visit Diagnoses Diagnosis Type 2 diabetes mellitus without complications (CMS/HCC V24, CMS/HCC V28) Hyperlipidemia, unspecified documented in this encounter Care Teams Small Products Assembler Relationship Specialty Start Date End Date Simon Arredondo PA [address] [place] [address] PCP - General Primary Care 03/31/24 documented as of this encounter
--- OUTSIDE RECORDS SUMMARY | 2024-12-24 12:12 | XMS_ITS | Encounter Summary ---
Author Organization [facility] Address [address] [place] [address] Care Team Providers Care Die Finisher Name Role Phone Simon Arredondo Primary Care Provider [phone] Encounter Details Date Type Department Care Team (Late st Contact Info) Description 05/18/2024 Lab Requisition [facility] - Main Lab [address] [facility] [place] [address] Prince Bo MD [address] [place] [address] Dr [address] [place], [place] Type 2 diabetes mellitus without complications [...] mg/dL LAB CHEMISTRY METHOD 05/18/2024 10:[address] [facility] Blood Venous blood specimen / Unknown 05/18/2024 5:13 AM EDT 05/18/2024 6:17 AM EDT us Prince Bo MD LAB BLOOD ORDERABLES Final Resul t [facility] [address] [place] [address], [place] [phone] * (ABNORMAL) Lipid panel with reflex to direct LDL (05/18/2024 5:13 AM EDT) Cholesterol 149 0 - 200 mg/dL LAB CHEMISTRY METHOD 05/18/2024 6:52 AM [facility] Triglycerides 146 0 - 150 mg/dL LAB CHEMISTRY METHOD 05/18/2024 6:52 AM [facility] HDL 31(L) >=40 mg/dL LAB CHEMISTRY METHOD 05/18/2024 6:52 AM [facility] LDL Calculated 89 0 - 100 mg/dL LAB CHEMISTRY METHOD 05/18/2024 6:52 AM [facility] VLDL Cholesterol Kenneth 29.2 mg/dL LAB CHEMISTRY METHOD 05/18/2024 6:52 AM [facility] Non HDL Chol. (LDL+VLDL) 118 <145 mg/dL LAB CHEMISTRY METHOD 05/18/2024 6:52 AM [facility] Chol/HDL Ratio 4.8(H) 0.0 - 4.4 LAB CHEMISTRY METHOD 05/18/2024 6:52 AM [facility] Blood Venous blood specimen / Unknown 05/18/2024 5:13 AM EDT 05/18/2024 6:17 AM EDT us Prince Bo MD LAB BLOOD ORDERABLES Final Resul t [facility] [address] [place] [address], * (ABNORMAL) Comprehensive metabolic panel (05/18/2024 5:13 AM EDT) Sodium 136 133 - 145 mmol/L LAB CHEMISTRY METHOD 05/18/2024 6:52 AM [facility] Potassium 4.2 3.5 - 5.5 mmol/L LAB CHEMISTRY METHOD 05/18/2024 6:52 AM [facility] Chloride 108 96 - 110 mmol/L LAB CHEMISTRY METHOD 05/18/2024 6:52 AM [facility] CO2 19(L) 21 - 32 mmol/L LAB CHEMISTRY METHOD 05/18/2024 6:52 AM [facility] Anion Gap 9 3 - 11 LAB CHEMISTRY METHOD 05/18/2024 6:52 AM [facility] Glucose 122(H) 70 - 100 mg/dL LAB CHEMISTRY METHOD 05/18/2024 6:52 AM [facility] BUN 30(H) 5 - 25 mg/dL LAB CHEMISTRY METHOD 05/18/2024 6:52 AM [facility] Creatinine 1.36(H) 0.70 - 1.30 mg/dL LAB CHEMISTRY METHOD 05/18/2024 6:52 AM [facility] eGFR 61 >=60 mL/min/1. 73m2 LAB CHEMISTRY METHOD 05/18/2024 6:52 AM [facility] Comment:Calculation based on the Chronic Kidney Disease Epidemiology Collaboration (CKD-EPI) equation refit without adjustment for race. BUN/Creatinine Ratio 22.1 LAB CHEMISTRY METHOD 05/18/2024 6:52 AM [facility] Calcium 9.7 8.5 - 10.5 mg/dL LAB CHEMISTRY METHOD 05/18/2024 6:[address] [facility] AST (SGOT) 8(L) 10 - 42 unit/L LAB CHEMISTRY METHOD 05/18/2024 6:52 AM [facility] ALT (SGPT) 22 10 - 60 unit/L LAB CHEMISTRY METHOD 05/18/2024 6:[address] [facility] Alkaline Phosphatase 77 42 - 121 unit/L LAB CHEMISTRY METHOD 05/18/2024 6:[address] [facility] Total Protein 7.8 6.0 - 8.0 g/dL LAB CHEMISTRY METHOD 05/18/2024 6:52 AM [facility] Albumin 3.9 3.2 - 5.0 g/dL LAB CHEMISTRY METHOD 05/18/2024 6:52 AM [facility] Total Bilirubin 0.3 0.0 - 1.4 mg/dL LAB CHEMISTRY METHOD 05/18/2024 6:[address] [facility] Blood Venous blood specimen / Unknown 05/18/2024 5:13 AM EDT 05/18/2024 6:17 AM EDT us Prince Bo MD LAB BLOOD ORDERABLES Final Resul t [facility] [address] [place] [address], documented in this encounter Visit Diagnoses Diagnosis Type 2 diabetes mellitus without complications (CMS/HCC V24, CMS/HCC V28) Hyperlipidemia, unspecified documented in this encounter Care Teams Die Finisher Relationship Specialty Start Date End Date Simon Arredondo PA [address] [address] PCP - General Primary Care 03/31/24 documented as of this encounter
--- OUTSIDE RECORDS SUMMARY | 2024-12-24 12:12 | XMS_ITS | Encounter Summary ---
Author Organization [facility] Address [address] [place] [address] Care Team Providers Care Manager Maintenance Name Role Phone Simon Arredondo Primary Care Provider [phone] Encounter Details Date Type Department Care Team (Late st Contact Info) Description 03/31/2024 Lab Requisition [facility] - Main Lab [address] [place] [address] Prince Bo MD [address] [place] [address] [address] [place], [place] Other residential (current) drug therapy Social History Tobacco Use [...] of this encounter Visit Diagnoses Diagnosis Other residential (current) drug therapy documented in this encounter Care Teams Manager Maintenance Relationship Specialty Start Date End Date Simon Arredondo PA [address] [address] PCP - General Primary Care 03/31/24 documented as of this encounter
--- OUTSIDE RECORDS SUMMARY | 2024-12-24 12:12 | XMS_ITS | Encounter Summary ---
Author Organization [facility] Address [address] [place] [address] Care Team Providers Care Chemical Applicator Name Role Phone Simon Arredondo Primary Care Provider [phone] Encounter Details Date Type Department Care Team (Late st Contact Info) Description 02/11/2024 Lab Requisition [facility] - Main Lab [address] [facility] [place] [address] Prince Bo MD [address] [place] [address] Dr [address] [place], [place] Essential (primary) hypertension; Type 2 diabetes mellitus [...] ORDERABLES Final Resul t Performing Organization Address [facility]/ZIP Co de Phone Number [facility] [address] [place] [address], [place] [phone] * (ABNORMAL) Hemoglobin A1c (02/11/2024 6:00 AM [...] ORDERABLES Final Resul t Performing Organization Address [facility] de Phone Number [facility] [address] [place] [address], [place] [phone] * (ABNORMAL) Comprehensive metabolic panel (02/11/2024 6:00 AM EST) Sodium 138 133 - 145 mmol/L LAB CHEMISTRY METHOD 02/11/2024 8:22 AM EST [facility] Potassium 4.3 3.5 - 5.5 mmol/L LAB CHEMISTRY METHOD 02/11/2024 8:22 AM EST [facility] Chloride 107 96 - 110 mmol/L LAB CHEMISTRY METHOD 02/11/2024 8:22 AM EST [facility] CO2 26 21 - 32 mmol/L LAB CHEMISTRY METHOD 02/11/2024 8:22 AM [facility] Anion Gap 5 3 - 11 LAB CHEMISTRY METHOD 02/11/2024 8:22 AM [facility] Glucose 137(H) 70 - 100 mg/dL LAB CHEMISTRY METHOD 02/11/2024 8:22 AM [facility] BUN 31(H) 5 - 25 mg/dL LAB CHEMISTRY METHOD 02/11/2024 8:22 AM [facility] Creatinine 1.36(H) 0.70 - 1.30 mg/dL LAB CHEMISTRY METHOD 02/11/2024 8:22 AM [facility] eGFR 61 >=60 mL/min/1. 73m2 LAB CHEMISTRY METHOD 02/11/2024 8:22 AM [facility] Comment:Calculation based on the Chronic Kidney Disease Epidemiology Collaboration (CKD-EPI) equation refit without adjustment for race. BUN/Creatinine Ratio 22.8 LAB CHEMISTRY METHOD 02/11/2024 8:22 AM [facility] Calcium 9.4 8.5 - 10.5 mg/dL LAB CHEMISTRY METHOD 02/11/2024 8:22 AM [facility] AST (SGOT) 8(L) 10 - 42 unit/L LAB CHEMISTRY METHOD 02/11/2024 8:22 AM [facility] ALT (SGPT) 20 10 - 60 unit/L LAB CHEMISTRY METHOD 02/11/2024 8:22 AM [facility] Alkaline Phosphatase 67 42 - 121 unit/L LAB CHEMISTRY METHOD 02/11/2024 8:22 AM [facility] Total Protein 7.5 6.0 - 8.0 g/dL LAB CHEMISTRY METHOD 02/11/2024 8:22 AM [facility] Albumin 3.8 3.2 - 5.0 g/dL LAB CHEMISTRY METHOD 02/11/2024 8:22 AM [facility] Total Bilirubin 0.3 0.0 - 1.4 mg/dL LAB CHEMISTRY METHOD 02/11/2024 8:22 AM EST [facility] Blood Venous blood specimen / Unknown 02/11/2024 6:00 AM EST 02/11/2024 7:29 AM EST us Prince Bo MD LAB BLOOD ORDERABLES Final Resul t [facility] [address] [place] [address], documented in this encounter Visit Diagnoses Diagnosis Essential (primary) hypertension Unspecified essential hypertension Type 2 diabetes mellitus without complications (CMS/HCC V24, CMS/HCC V28) documented in this encounter Care Teams Chemical Applicator Relationship Specialty Start Date End Date Simon Arredondo PA [address] [address] PCP - General Primary Care 03/31/24 documented as of this encounter
--- OUTSIDE RECORDS SUMMARY | 2024-12-24 12:12 | XMS_ITS | Clinical Summary ---
Author Organization [address] [facility] Address [address] [place] [address] Phone Care Team Providers Care Wire Weaving Loom Setter Name Role Phone Simon Arredondo Primary Care Provider Encounters Date Type Department Care Team Description 12/14/2024 Lab Requisition [facility] Lab [address] [place] [id number] Prince Bo MD Other buttermilk drier operator (current) drug therapy; Testicular hypofunction 11/16/2024 Lab Requisition [facility] [address] [place] [phone] Prince Bo MD Type 2 diabetes mellitus without complications (CMS/HCC V24, CMS/HCC V28); Hyperlipidemia, unspecified from Last 3 Months Social History Tobacco Use Types Packs/Day Years Used Date Smoking Tobacco: Never Assessed Sex and Gender Information Value Date Recorded Sex Assigned at Not on file Legal Sex Male 1:00 PM EDT Gender Identity Not on file Sexual Orientation Not on file Plan of Treatment Health Maintenance Due Date Last Done Comments Colorectal Cancer Screening: Colonoscopy 1968 Diabetes: Annual Foot Exam 1978 Diabetes: Annual Retina Eye Exam 1978 DTaP,Tdap,and Td Vaccines (1 - Tdap) 12/23/1987 Hepatitis B Vaccines (1 of 3 - 19+ 3-dose series) 12/23/1987 Pneumococcal Vaccine: 50+ Years (1 of 2 - PCV) 12/23/1987 Zoster Vaccines (1 of 2) 2018 Depression Screening 02/12/2024 Diabetes: Annual Urine Albumin-Creatinine Ratio (uACR) 03/05/2024 HIV Screening 03/05/2024 Hepatitis C Screening 03/05/2024 Medicare Annual Wellness Visit 03/05/2024 Social Influencers of Health Screening 03/05/2024 COVID-19 Vaccine ( season) 2024 Influenza Vaccine (#1) 2024 Diabetes: Blood Sugar Control Test (HGBA1C) 05/17/2025 11/16/2024, 08/13/2024, 05/18/2024, Additional history exists Diabetes: Annual GFR (Glomerular Filtration Rate) 11/16/2025 11/16/2024, 08/13/2024, 05/18/2024, Additional history exists Hypertension/CHF/CAD Annual BMP Blood Test 11/16/2025 11/16/2024, 08/13/2024, 05/18/2024, Additional history exists Cholesterol Screening (Lipid Panel) 11/16/2029 11/16/2024, 05/18/2024 RSV Immunization Adult Patients (1 - 1-dose 75+ series) 12/23/2043 HIB Vaccines Aged Out No longer eligi [...] 20 months Aged Out No longer eligible based on patient's age to complete this topic Varicella Vaccines Aged Out No longer eligible based on patient's age to complete this topic Procedures Procedure Name Priority Date/Time Associated Diagnosis Comments TESTOSTERONE, TOTAL Routine 12/14/2024 6 :35 AM EST Other buttermilk drier operator (current) drug therapy Testicular hypofunction HEMOGLOBIN A1C Routine 11/16/2024 6:11 AM EDT Type 2 diabetes mellitus without complications (CMS/HCC V24, [facility] V28) Hyperlipidemia, unspecified LIPID PANEL WITH REFLEX TO DIRECT LDL Routine 11/16/2024 6:11 AM EDT Type 2 diabetes mellitus without complications ([facility] V24, [facility] V28) Hyperlipidemia, unspecified COMPREHENSIVE METABOLIC PANEL Routine 11/16/2024 6:11 AM EDT Type 2 diabetes mellitus without complications ([facility] V24, [facility] V28) Hyperlipidemia, unspecified from Last 3 Months Results * (ABNORMAL) Testosterone, total (12/14/2024 6:35 AM EST) Pathologist [facility] Testosterone 109(L) 229 - 902 ng/dL LAB CHEMISTRY METHOD 12/14/2024 10:23 AM EST [facility] Blood Venous blood specimen / Unknown 12/14/2024 6:35 AM EST 12/14/2024 7:22 AM EST us Prince Bo MD LAB BLOOD ORDERABLES Final Resul t [facility] [address] [place] [address], [place] [phone] * (ABNORMAL) Lipid panel with reflex to direct LDL (11/16/2024 6:11 AM EDT) Pathologist [facility] Cholesterol 142 0 - 200 mg/dL LAB CHEMISTRY METHOD 11/16/2024 7:59 AM EDT [facility] Triglycerides 125 0 - 150 mg/dL LAB CHEMISTRY METHOD 11/16/2024 7:59 AM EDT [facility] HDL 31(L) >=40 mg/dL LAB CHEMISTRY METHOD 11/16[facility]24 [facility] LDL Calculated 86 0 - 100 mg/dL LAB CHEMISTRY METHOD 11/16/2024 7:59 AM T [facility] Comment:Estimated LDL Calcul ated using equation: Total cholesterol - HDL cholesterol - (Triglycerides/5) VLDL Cholesterol Kenneth 25 mg/dL LAB CHEMISTRY METHOD 11/16/2024 7:59 AM EDT [facility] Non HDL Chol. (LDL+VLDL) 111 <145 mg/dL LAB CHEMISTRY METHOD 11/16/2024 7:59 AM EDT [facility] Chol/HDL Ratio 4.6(H) 0.0 - 4.4 LAB CHEMISTRY METHOD 11/16/2024 7:59 AM EDT [facility] Blood Venous blood specimen / Unknown 11/16/2024 6:11 AM EDT 11/16/2024 7:03 AM EDT us Prince Bo MD LAB BLOOD ORDERABLES Final Resul t Performing Organization Address [facility]/ZIP Co de Phone Number [facility] [address] [place] [address], [place] [phone] * Hemoglobin A1c (11/16/2024 6:11 AM EDT) Hemoglobin A1C 6.4 <6.5 % LAB CHEMISTRY METHOD 11/16/2024 1:29 PM EDT [facility] Mean Bld Glu Estim. 137 mg/dL LAB CHEMISTRY METHOD 11/16/2024 1:29 PM EDT [facility] Blood Venous blood specimen / Unknown 11/16/2024 6:11 AM EDT 11/16/2024 7:03 AM EDT us Prince Bo MD LAB BLOOD ORDERABLES Final Resul t [facility] [address] [place] [address], [place] [phone] * (ABNORMAL) Comprehensive metabolic panel (11/16/2024 6:11 AM EDT) Sodium 138 133 - 145 mmol/L LAB CHEMISTRY METHOD 11/16/2024 7:59 AM EDT [facility] Potassium 4.3 3.5 - 5.5 mmol/L LAB CHEMISTRY METHOD 11/16/2024 7:59 AM [facility] Chloride 107 96 - 110 mmol/L LAB CHEMISTRY METHOD 11/16/2024 7:59 AM [facility] CO2 22 21 - 32 mmol/L LAB CHEMISTRY METHOD 11/16/2024 7:59 AM [facility] Anion Gap 9 3 - 11 LAB CHEMISTRY METHOD 11/16/2024 7:59 AM [facility] Glucose 104(H) 70 - 100 mg/dL LAB CHEMISTRY METHOD 11/16/2024 7:59 AM [facility] BUN 30(H) 5 - 25 mg/dL LAB CHEMISTRY METHOD 11/16/2024 7:59 AM [facility] Creatinine 1.59(H) 0.70 - 1.30 mg/dL LAB CHEMISTRY METHOD 11/16/2024 7:59 AM [facility] eGFR 51(L) >=60 mL/min/1. 73m2 LAB CHEMISTRY METHOD 11/16/2024 7:59 AM [facility] Comment:Calculation based on the Chronic Kidney Disease Epidemiology Collaboration (CKD-EPI) equation refit without adjustment for race. BUN/Creatinine Ratio 18.9 LAB CHEMISTRY METHOD 11/16/2024 7:59 AM [facility] Calcium 9.4 8.5 - 10.5 mg/dL LAB CHEMISTRY METHOD 11/16/2024 7:59 AM [facility] AST (SGOT) 8(L) 10 - 42 unit/L LAB CHEMISTRY METHOD 11/16/2024 7:59 AM [facility] ALT (SGPT) 20 10 - 60 unit/L LAB CHEMISTRY METHOD 11/16/2024 7:59 AM [facility] Alkaline Phosphatase 70 42 - 121 unit/L LAB CHEMISTRY METHOD 11/16/2024 7:59 AM [facility] Total Protein 7.4 6.0 - 8.0 g/dL LAB CHEMISTRY METHOD 11/16/2024 7:59 AM EDT [facility] Albumin 3.8 3.2 - 5.0 g/dL LAB CHEMISTRY METHOD 11/16/2024 7:59 AM EDT [facility] Total Bilirubin 0.3 0.0 - 1.4 mg/dL LAB CHEMISTRY METHOD 11/16/2024 7:59 AM EDT [facility] Blood Venous blood specimen / Unknown 11/16/2024 6:11 AM EDT 11/16/2024 7:03 AM EDT us Prince Bo MD LAB BLOOD ORDERABLES Final Resul t [facility] [address] [place] [address], [place] [phone] from Last 3 Months Insurance MEDICARE MEDICAID - [place] [facility] Care Teams Wire Weaving Loom Setter Relationship Specialty Start Date End Date Simon Arredondo PA [address] [place] [phone] PCP - General Primary Care 03/31/24
--- OUTSIDE RECORDS SUMMARY | 2024-12-24 12:12 | XMS_ITS | Encounter Summary ---
Author Organization [facility] Address [address] [place] [address] Care Team Providers Care Freight Engineer Name Role Phone Simon Arredondo Primary Care Provider [phone] Encounter Details Date Type Department Care Team (Late st Contact Info) Description 08/13/[address] [facility] - Main Lab 299 [facility] [place] [address] Prince Bo MD [address] [place] [address] Dr [address] [place], [place] Type 2 diabetes mellitus without complications (CMS/HCC V24, CMS/HCC V28); Encounter for screening for malignant neoplasm of prostate Social History Tobacco Use Types Packs/Day Years [...] Diagnosis Comments PROSTATE SPECIFIC ANTIGEN SCREEN Routine 08/13/2024 6:45 AM EDT Type 2 diabetes mellitus without complications (CMS/HCC V24, CMS/HCC V28) Encounter for screening for malignant neoplasm of prostate CBC WITH AUTO DIFFERENTIAL Routine 08/13/2024 6:45 AM EDT Type 2 diabetes mellitus without complications (CMS/HCC V24, CMS/HCC V28) Encounter for screening for malignant neoplasm of prostate CBC AND DIFFERENTIAL Routine 08/13/2024 6:45 AM EDT Type 2 diabetes mellitus without complications (CMS/HCC V24, CMS/HCC V28) Encounter for screening for malignant neoplasm of prostate HEMOGLOBIN A1C Routine 08/13/2024 6:45 AM EDT Type 2 diabetes mellitus without complications ([facility] V24, [facility] V28) Encounter for screening for malignant neoplasm of prostate COMPREHENSIVE METABOLIC PANEL Routine 08/13/2024 6:45 AM EDT Type 2 diabetes mellitus without complications ([facility] V24, [facility] V28) Encounter for screening for malignant neoplasm of prostate documented in this encounter Results * (ABNORMAL) CBC auto differential (08/13/2024 6:45 AM EDT) [facility] WBC 7.3 4.8 - 10.8 K/mcL LAB HEMETOLOGY METHOD 08/13/2024 7:51 AM [facility] RBC 4.40(L) 4.50 - 5.50 M/mcL LAB HEMETOLOGY METHOD 08/13/2024 7:51 AM [facility] Hemoglobin 13.3(L) 13.5 - 17.5 g/dL LAB HEMETOLOGY METHOD 08/13/2024 7:51 AM [facility] Hematocrit 41.1(L) 42.0 - 54.0 % LAB HEMETOLOGY METHOD 08/13/2024 7:51 AM [facility] MCV 92.8 79.0 - 98.0 FL LAB HEMETOLOGY METHOD 08/13/2024 7:51 AM [facility] MCH 30.0 27.0 - 32.0 pcg LAB HEMETOLOGY METHOD 08/13/2024 7:51 AM [facility] MCHC 32.4 32.0 - 37.0 g/dL LAB HEMETOLOGY METHOD 08/13/2024 7:51 AM [facility] RDW 13.4 11.0 - 15.0 % LAB HEMETOLOGY METHOD 08/13/2024 7:51 AM [facility] Platelets 334 130 - 400 K/mcL LAB HEMETOLOGY METHOD 08/13/2024 7:51 AM [facility] MPV 10.2 7.0 - 11.0 FL LAB HEMETOLOGY METHOD 08/13/2024 7:51 AM [facility] NRBC 0.0 <1.0 % LAB HEMETOLOGY METHOD 08/13/2024 7:51 AM [facility] NRBC Absolute 0.00 <0.10 K/[facility] LAB HEMETOLOGY METHOD 08/13/2024 7:51 AM [facility] Neutrophils Relative 61.4 % LAB HEMETOLOGY METHOD 08/13/2024 7:51 AM [facility] Lymphocytes Relative 22.3 % LAB HEMETOLOGY METHOD 08/13/2024 7:51 AM [facility] Monocytes Relative 10.9 % LAB HEMETOLOGY METHOD 08/13/2024 7:51 AM [facility] Eosinophils Relative 4.0 % LAB HEMETOLOGY METHOD 08/13/2024 7:51 AM [facility] Basophils Relative 1.1 % LAB HEMETOLOGY METHOD 08/13/2024 7:51 AM [facility] Immature Granulocytes Relative 0.3 % LAB HEMETOLOGY METHOD 08/13/2024 7:51 AM [facility] Neutrophils Absolute 4.46 1.50 - 7.00 K/[facility] LAB HEMETOLOGY METHOD 08/13/2024 7:51 AM [facility] Lymphocytes Absolute 1.62 1.00 - 5.00 K/mcL LAB HEMETOLOGY METHOD 08/13/2024 7:51 AM [facility] Monocytes Absolute 0.79 0.20 - 1.00 K/mcL LAB HEMETOLOGY METHOD 08/13/2024 7:51 AM [facility] Eosinophils Absolute 0.29 0.00 - 0.50 K/[facility] LAB HEMETOLOGY METHOD 08/13/2024 7:51 AM EDT [facility] Basophils Absolute 0.08 0.00 - 0.20 K/[facility] LAB HEMETOLOGY METHOD 08/13/2024 7:51 AM EDT [facility] Immature Granulocytes Absolute 0.02 0.00 - 0.03 K/[facility] LAB HEMETOLOGY METHOD 08/13/2024 7:51 AM EDT [facility] Blood Venous blood specimen / Unknown 08/13/2024 6:45 AM EDT 08/13/2024 7:17 AM EDT us Prince Bo MD LAB BLOOD ORDERABLES Final Resul t Performing Organization Address [facility] de Phone Number [facility] [address] [place] [address], [place] [phone] * Prostate specific antigen screen (08/13/2024 6:45 AM EDT) PSA 1.61 0.00 - 4.00 ng/mL LAB CHEMISTRY METHOD 08/13/2024 9:39 AM EDT [facility] Blood Venous blood specimen / Unknown 08/13/2024 6:45 AM EDT 08/13/2024 7:17 AM EDT Narrative [facility] - 08/13/2024 9:39 AM EDT The Siemens Advia Centaur Chemiluminescent Immunoassay is used. Results obtained with different assay methods or kits cannot be used interchangeably. Results cannot be interpreted as absolute evidence of the presence or absence of malignant disease. us Prince Bo MD LAB BLOOD ORDERABLES Final Resul t Performing Organization Address [facility]/ZIP Co de Phone Number [facility] [address] [place] [address], [place] [phone] * (ABNORMAL) Hemoglobin A1c (08/13/2024 6:45 AM EDT) Hemoglobin A1C 6.5(H) <6.5 % LAB CHEMISTRY METHOD 08/13/2024 2:04 PM EDT [facility] Mean Bld Glu Estim. 140 mg/dL LAB CHEMISTRY METHOD 08/13/2024 2:04 PM T [facility] Blood Venous blood specimen / Unknown 08/13/2024 6:45 AM EDT 08/13/2024 7:17 AM EDT us Prince Bo MD LAB BLOOD ORDERABLES Final Resul t [facility] [address] [place] [address], * (ABNORMAL) Comprehensive metabolic panel (08/13/2024 6:45 AM EDT) [facility] Sodium 143 133 - 145 mmol/L LAB CHEMISTRY METHOD 08/13/2024 9:15 AM [facility] Potassium 4.5 3.5 - 5.5 mmol/L LAB CHEMISTRY METHOD 08/13/2024 9:15 AM [facility] Chloride 115(H) 96 - 110 mmol/L LAB CHEMISTRY METHOD 08/13/2024 9:15 AM [facility] CO2 22 21 - 32 mmol/L LAB CHEMISTRY METHOD 08/13/2024 9:15 AM [facility] Anion Gap 6 3 - 11 LAB CHEMISTRY METHOD 08/13/2024 9:15 AM [facility] Glucose 131(H) 70 - 100 mg/dL LAB CHEMISTRY METHOD 08/13/2024 9:15 AM [facility] BUN 25 5 - 25 mg/dL LAB CHEMISTRY METHOD 08/13/2024 9:15 AM [facility] Creatinine 1.27 0.70 - 1.30 mg/dL LAB CHEMISTRY METHOD 08/13/2024 9:15 AM [facility] eGFR 67 >=60 mL/min/1. 73m2 LAB CHEMISTRY METHOD 08/13/2024 9:15 AM [facility] Comment:Calculation based on the Chronic Kidney Disease Epidemiology Collaboration (CKD-EPI) equation refit without adjustment for race. BUN/Creatinine Ratio 19.7 LAB CHEMISTRY METHOD 08/13/2024 9:15 AM [facility] Calcium 9.4 8.5 - 10.5 mg/dL LAB CHEMISTRY METHOD 08/13/2024 9:15 AM [facility] AST (SGOT) 9(L) 10 - 42 unit/L LAB CHEMISTRY METHOD 08/13/2024 9:15 AM [facility] ALT (SGPT) 23 10 - 60 unit/L LAB CHEMISTRY METHOD 08/13/2024 9:15 AM [facility] Alkaline Phosphatase 71 42 - 121 unit/L LAB CHEMISTRY METHOD 08/13/2024 9:15 AM [facility] Total Protein 7.6 6.0 - 8.0 g/dL LAB CHEMISTRY METHOD 08/13/2024 9:15 AM [facility] Albumin 3.8 3.2 - 5.0 g/dL LAB CHEMISTRY METHOD 08/13/2024 9:15 AM [facility] Total Bilirubin 0.2 0.0 - 1.4 mg/dL LAB CHEMISTRY METHOD 08/13/2024 9:15 AM [facility] Blood Venous blood specimen / Unknown 08/13/2024 6:45 AM EDT 08/13/2024 7:17 AM EDT us Prince Bo MD LAB BLOOD ORDERABLES Final Resul t [facility] [address] [place] [address], [place] [phone] documented in this encounter Visit Diagnoses Diagnosis Type 2 diabetes mellitus without complications (CMS/[facility] V24, CMS/[facility] V28) Encounter for screening for malignant neoplasm of prostate documented in this encounter Care Teams Freight Engineer Relationship Specialty Start Date End Date Simon Arredondo PA [address] [place] [address] PCP - General Primary Care 03/31/24 documented as of this encounter
--- OUTSIDE RECORDS SUMMARY | 2024-12-24 12:12 | XMS_ITS | Encounter Summary ---
Author Organization [facility] Address [address] [place] [address] Care Team Providers Care Mail Carrier Name Role Phone Simon Arredondo Primary Care Provider [phone] Encounter Details Date Type Department Care Team (Late st Contact Info) Description 12/14/2024 Lab Requisition [facility] - Main Lab [address] [place] [address] Prince Bo MD [address] [place] [address] Dr [address] [place], [place] Other mcfp (current) drug therapy; Testicular hypofunction Social History Tobacco Use Types Packs/Day Years [...] Associated Diagnosis Comments TESTOSTERONE, TOTAL Routine 12/14/2024 6:35 AM EST Other mcfp (current) drug therapy Testicular hypofunction documented in this encounter Results * (ABNORMAL) Testosterone, total (12/14/2024 6:35 AM EST) Testosterone 109(L) 229 - 902 ng/dL LAB CHEMISTRY METHOD 12/14/2024 10:23 AM EST [facility] Blood Venous blood specimen / Unknown 12/14/2024 6:35 AM EST 12/14/2024 7:22 AM EST us Prince Bo MD LAB BLOOD ORDERABLES Final Resul t [facility] [place] [facility] [address] [place] [address], documented in this encounter Visit Diagnoses Diagnosis Other parts counterman (current) drug therapy Testicular hypofunction Other testicular hypofunction documented in this encounter Care Teams Mail Carrier Relationship Specialty Start Date End Date Simon Arredondo PA [address] [place] [address] PCP - General Primary Care 03/31/24 documented as of this encounter
--- OUTSIDE RECORDS SUMMARY | 2024-12-24 12:12 | XMS_ITS | Encounter Summary ---
Author Organization [facility] Address [address] [place] [address] Care Team Providers Care Complaint Evaluation Officer Name Role Phone Simon Arredondo Primary Care Provider [phone] Encounter Details Date Type Department Care Team (Late st Contact Info) Description 03/04/2024 Lab Requisition [facility] - Main Lab [address] [facility] [place] [address] Prince Bo MD [address] [place] [address] Dr [address] [place], [place] Encounter for screening for malignant neoplasm [...] Hold for add-ons. 03/07/2024 9:[address] [facility] Comment:Auto resulted. Blood Venous blood specimen / Unknown 03/04/2024 2:10 PM EST 03/04/2024 6:37 PM EST us Prince Bo MD LAB BLOOD ORDERABLES Final Resul t [facility] [address] [place] [address], * Levetiracetam level (03/04/2024 2:10 PM EST) Levetiracetam 33.1 3.0 - 60.0 ug/mL 03/07/2024 9:13 AM EST [facility] Comment: Steady state trough serum or plasma levels following doses of 1000 to 3000 mg/Day: 3 to 37 ug/mL. The same dosage regimen will typically result in peak levels of 10 to 60 ug/mL, at approximately 1.5 hours post dose. If applicable, any drug confirmation testing reported here was developed and the performance characteristics determined by [facility]. This confirmation testing has not been cleared or approved by the FDA. The laboratory is regulated under CLIA as qualified to perform high-complexity testing. This test is used for patient testing purposes. It should not be regarded as investigational or for research. Test performed at [facility], [address] , [place] [address] Nini Daniels MD, PhD - Sifting Operator Blood Venous blood specimen / Unknown 03/04/2024 2:10 PM EST 03/04/2024 6:37 PM EST us Prince Bo MD LAB BLOOD ORDERABLES Final Resul t Performing Organization Address City/[facility]/ZIP Co de Phone Number [facility] [address] [place] [address] * (ABNORMAL) Carbamazepine level, total (03/04/2024 2:10 PM EST) Carbamazepine Level 13.0(HH) 8.0 - 12.0 mcg/mL LAB CHEMISTRY METHOD 03/04/2024 8:[address] [facility] Blood Venous blood specimen / Unknown 03/04/2024 2:10 PM EST 03/04/2024 6:37 PM EST us Prince Bo MD LAB BLOOD ORDERABLES Final Resul t Performing Organization Address City/[facility]/ZIP Co de Phone Number [facility]) [facility] [address] [place] [address], [place] [phone] * Prostate specific antigen screen (03/04/2024 2:10 PM EST) PSA 1.70 0.00 - 4.00 ng/mL LAB CHEMISTRY METHOD 03/04/2024 8:[address] [facility] Blood Venous blood specimen / Unknown 03/04/2024 2:10 PM EST 03/04/2024 6:[address] [facility] - 03/04/2024 8:31 PM EST The Siemens Advia Centaur Chemiluminescent Immunoassay is used. Results obtained with different assay methods or kits cannot be used interchangeably. Results cannot be interpreted as absolute evidence of the presence or absence of malignant disease. us Prince Bo MD LAB BLOOD ORDERABLES Final Resul t [facility] [address] [place] [address], [place] [phone] * (ABNORMAL) Testosterone free, bioavailable and total (03/04/2024 2:10 PM EST) Testosterone 142(L) 229 - 902 ng/dL LAB CHEMISTRY METHOD 03/04/2024 8:[address] [facility] Testosterone, Free 3.2(L) 4.6 - 22.4 ng/dL LAB CHEMISTRY METHOD 03/04/2024 8:[address] [facility] Testosterone, Bioavailable 78(L) 110 - 575 ng/dL LAB CHEMISTRY METHOD 03/04/2024 8:[address] [facility] Sex Hormone Binding 22.6 See Comment nmol/L LAB CHEMISTRY METHOD 03/04/2024 8:[address] [facility] Comment: FEMALES: pre-menopausal 10.8 - >180 post-menopausal 23.2 - 159.1 MALES: 21-49 years 14.6 - 94.6 50-89 years 21.6 - 113.1 CHILDREN: No established reference range Over the counter supplements containing high doses of biotin may interfere with this assay. If interference is suspected, patients should be retested after refraining from biotin supplements for 72 hours. Albumin 4.5 3.2 - 5.0 g/dL LAB CHEMISTRY METHOD 03/04/2024 8:[address] [facility] Blood Venous blood specimen / Unknown 03/04/2024 2:10 PM EST 03/04/2024 6:37 PM EST us Prince Bo MD LAB BLOOD ORDERABLES Final Resul t [facility] [address] [place] [address], documented in this encounter Visit Diagnoses Diagnosis Encounter for screening for malignant neoplasm of prostate Localization-related (focal) (partial) idiopathic epilepsy and epileptic syndromes with seizures of localized onset, not intractable, without status epilepticus (CMS/HCC V24, CMS/HCC V28) documented in this encounter Care Teams Complaint Evaluation Officer Relationship Specialty Start Date End Date Simon Arredondo PA [address] [address] PCP - General Primary Care 03/31/24 documented as of this encounter
--- OUTSIDE RECORDS SUMMARY | 2024-12-24 12:12 | XMS_ITS | Encounter Summary ---
Author Organization [facility] Address [address] [place] [address] Care Team Providers Care Developer Automatic Name Role Phone Simon Arredondo Primary Care Provider [phone] Encounter Details Date Type Department Care Team (Late st Contact Info) Description 03/13/2024 Lab Requisition [facility] - Main Lab [address] [place] [address] Prince Bo MD [address] [place] [address] Dr [address] [place], [place] Localization-related (focal) (partial) idiopathic epilepsy and epileptic [...] LAB CHEMISTRY METHOD 03/13/2024 8:39 AM EST [facility] Blood Venous blood specimen / Unknown 03/13/2024 7:10 AM EST 03/13/2024 8:12 AM EST us Prince Bo MD LAB BLOOD ORDERABLES Final Resul t [facility] [address] [place] [address], documented in this encounter Visit Diagnoses Diagnosis Localization-related (focal) (partial) idiopathic epilepsy and epileptic syndromes with seizures of localized onset, not intractable, without status epilepticus (CMS/HCC V24, CMS/HCC V28) documented in this encounter Care Teams Developer Automatic Relationship Specialty Start Date End Date Simon Arredondo PA [address] [address] PCP - General Primary Care 03/31/24 documented as of this encounter
--- OUTSIDE RECORDS SUMMARY | 2024-12-24 12:12 | XMS_ITS | Encounter Summary ---
Author Organization [facility] Address [address] [place] [address] Care Team Providers Care Volunteer Coordinator Name Role Phone Simon Arredondo Primary Care Provider [phone] Encounter Details Date Type Department Care Team (Late st Contact Info) Description 04/02/2024 Lab Requisition [facility] - Main Lab [address] [place] [address] Prince Bo MD [address] [place] [address] Dr [address] [place], [place] local company intermodal truck driver (current) use of anticoagulants Social History Tobacco [...] Comments ZINC Routine 04/02/2024 12:00 AM EST correction (current) use of anticoagulants MAGNESIUM Routine 04/02/2024 12:00 AM EST correction (current) use of anticoagulants documented in this encounter Results * Zinc (04/02/2024 12:00 AM EST) Zinc 72 60 - 130 ug/dL 04/06/2024 2:55 PM EST [facility] Comment: Elevated results may be due to sample collected in a non-certified trace element-free tube. This test was developed and the performance characteristics determined by [facility]. It has not been cleared or approved by the FDA. The laboratory is regulated under CLIA as qualified to perform high-complexity testing. This test is used for patient testing purposes. It should not be regarded as investigational or for research. Test performed at [facility], [address], [place] [address] Nini Daniels MD, PhD - Wrap Yarn Sorter Blood Venous blood specimen / Unknown 04/02/2024 04/02/2024 7:33 PM EST us Prince Bo MD LAB BLOOD ORDERABLES Final Resul t [facility] [address] [place] [address] * Magnesium (04/02/2024 12:00 AM EST) [facility] Magnesium 1.9 1.9 - 2.6 mg/dL LAB CHEMISTRY METHOD 04/02/2024 7:42 PM EST [facility] Blood Venous blood specimen / Unknown 04/02/2024 04/02/2024 7:33 PM EST us Prince Bo MD LAB BLOOD ORDERABLES Final Resul t Performing Organization Address [facility] de Phone Number [facility] [address] [place] [address], documented in this encounter Visit Diagnoses Diagnosis correction (current) use of anticoagulants Long-term (current) use of anticoagulants documented in this encounter Care Teams Volunteer Coordinator Relationship Specialty Start Date End Date Simon Arredondo PA [address] [address] PCP - General Primary Care 03/31/24 documented as of this encounter
--- OUTSIDE RECORDS SUMMARY | 2024-12-24 12:12 | XMS_ITS | Encounter Summary ---
Author Organization [facility] Address [address] [place] [address] Care Team Providers Care Marine Electrician Helper Name Role Phone Simon Arredondo Primary Care Provider [phone] Encounter Details Date Type Department Care Team (Late st Contact Info) Description 09/01/2024 Lab Requisition [facility] - Main Lab [address] [place] [address] Prince Bo MD [address] [place] [address] Dr [address] [place], [place] Other custodial (current) drug therapy Social [...] Procedure Name Priority Date/Time Associated Diagnosis Comments RED - PLAIN Routine 09/01/2024 6:20 AM EDT Other store leader (current) drug therapy LEVETIRACETAM LEVEL Routine 09/01/2024 6 :20 AM EDT Other store leader (current) drug therapy CARBAMAZEPINE LEVEL, TOTAL Routine 09/01/2024 6:20 AM EDT Other store leader (current) drug therapy documented in this encounter Results * Red tube (09/01/2024 6:20 AM EDT) Extra Tube Hold for add-ons. 09/01/2024 8:01 AM EDT [facility] ([facility] Comment:Auto resulted. Blood Venous blood specimen / Unknown 09/01/2024 6:20 AM EDT 09/01/2024 6:49 AM EDT us Prince Bo MD LAB BLOOD ORDERABLES Final Resul t [facility] [address] [place] [address], [place] [phone] * Carbamazepine level, total (09/01/2024 6:20 AM EDT) Carbamazepine Level 9.0 8.0 - 12.0 mcg/mL LAB CHEMISTRY METHOD 09/01/2024 7:30 AM EDT [facility] Blood Venous blood specimen / Unknown 09/01/2024 6:20 AM EDT 09/01/2024 6:49 AM EDT us Prince Bo MD LAB BLOOD ORDERABLES Final Resul t Performing Organization Address City/[facility]/ZIP Co de Phone Number [facility] [address] [place] [address], [place] [phone] * Levetiracetam level (09/01/2024 6:20 AM EDT) Levetiracetam 16.9 3.0 - 60.0 ug/mL 09/03/2024 6:07 AM EDT [facility] Comment: Steady state trough serum or plasma levels following doses of 1000 to 3000 mg/Day: 3 to 37 ug/mL. The same dosage regimen will typically result in peak levels of 10 to 60 ug/mL, at approximately 1.5 hours post dose. If applicable, any drug confirmation testing reported here was developed and the performance characteristics determined by [facility]. This confirmation testing has not been cleared or approved by the FDA. The laboratory is regulated under CLIA as qualified to perform high-complexity testing. This test is used for patient testing purposes. It should not be regarded as investigational or for research. Test performed at [facility], [address] , [place] [address] Nini Daniels MD, PhD - Adjunct Faculty Instructor Blood Venous blood specimen / Unknown 09/01/2024 6:20 AM EDT 09/01/2024 6:49 AM EDT us Prince Bo MD LAB BLOOD ORDERABLES Final Resul t [facility] [address] [place] [phone] documented in this encounter Visit Diagnoses Diagnosis Other store leader (current) drug therapy documented in this encounter Care Teams Marine Electrician Helper Relationship Specialty Start Date End Date Simon Arredondo PA [address] [place] [address] PCP - General Primary Care 03/31/24 documented as of this encounter
== END 2024-12-24 11:09 | disposition home or self-care (01) ==
LOC: HO.HUSH 10:10
PROVIDERS: PCP Hospitalist; Visit Provider Urology
DX: E29.1 Testicular hypofunction (principal); N20.0 Calculus of kidney
CPT/HCPCS: 99213; G2211

== ENCOUNTER → 2024-12-24 10:09 | Outpatient (BNVA) | payer MEDICARE, MEDICAID, SELFPAY | PROVIDERS: PCP Hospitalist; Visit Provider Urology | DX: N20.0 Calculus of kidney (principal); E29.1 Testicular hypofunction; Z79.01 Long term (current) use of anticoagulants | CPT/HCPCS: 99212 ==